=== PATIENT | female | born 1935 | race Hispanic/Latino ===

== ENCOUNTER 2018-08-19 12:44 | Inpatient (IN) | payer MEDICARE ==
[2018-08-19 13:38] LABS: VENOUS BLOOD GAS BASE EXCESS 6.9 mmol/L (0.0-2.0); VENOUS BLOOD GAS PO2 100 mm/Hg (30-55); VENOUS BLOOD PH 7.45 (7.32-7.43)
[2018-08-19] MEDS ORDERED: Phytonadione 5 MG in Sodium Chloride 0.9% 50 ML IV ONE ×2 (13:43→20:45)
[2018-08-19 13:51] LABS: BASO # 0.01 K/mm3 (0.0-2.0); EOS # 0.1 (0.0-0.7); EOS % 0.2 % (1.5-5.0); GRAN # 19.09 (1.4-6.5); GRAN % 90.3 % (50.0-68.0); HEMOGLOBIN 10.1 g/dL (12.0-16.0); LYMPH # 1.1 (1.2-3.4); LYMPH % 5.3 % (22.0-35.0); MEAN CELL VOLUME 93.7 fl (80.0-105.0); MEAN CORPUSCULAR HEMOGLOBIN 30.3 pg (25.0-35.0); MEAN CORPUSCULAR HGB CONC 32.4 g/dl (31.0-37.0); MEAN PLATELET VOLUME 9.6 fl (7.0-11.0); MONO # 0.9 (0.1-0.6); MONO % 4.2 % (1.0-6.0); PLATELET COUNT 587 10^3/uL (120.0-450.0); RBC 3.33 10^6/uL (3.5-6.1); RED CELL DISTRIBUTION WIDTH 13.3 % (11.5-14.5); WHITE BLOOD COUNT 21.2 10^3/uL (4.5-11.0)
[2018-08-19] MEDS ORDERED: Insulin Reg-MEDIUM-Coverage IV STA (13:55)
[2018-08-19 13:59] LABS: ALB/GLOB RATIO 0.8 (1.1-1.8); ALBUMIN 2.9 g/dL (3.0-4.8); TROPONIN I 0.02 ng/mL
[2018-08-19 14:03] LABS: PARTIAL THROMBOPLASTIN TIME 65.8 Seconds (25.1-36.5)
[2018-08-19 14:06] LABS: PROTHROMBIN TIME 127.7 SECONDS (9.4-12.5)
[2018-08-19 14:08] LABS: EOSINOPHIL 1 % (0.0-3.0); LYMPHOCYTE 3 % (22.0-35.0); MONOCYTE 6 % (1.0-6.0); MYELOCYTE 1 %; NEUTROPHIL 89 % (50.0-70.0)
[2018-08-19 14:09] LABS: PLATELET ESTIMATE HIGH (NORMAL)
[2018-08-19 14:12] LABS: INR 10.58
[2018-08-19] MEDS ORDERED: Sodium Chloride 0.9% 1,000 ML IV SCH (14:15)
[2018-08-19] MEDS ORDERED: Insulin Regular 1 UNITS/0.01 ML ML ONE (14:17)
--- NOTE | 2018-08-19 14:17 | ED PDOC ---
Arrival/HPI - General Chief Complaint: Abnormal Labs Historian: Parent - History of Present Illness Narrative History of Present Illness (Text): 08/19/18 14:06 83yo female with pmhx Diabetes, hypertension, hypothyroid, DVT referred to ED by Dr. Bishop for elevated INR. The daughter by the bedside states she wasn't able to check the INR at home secondary to faulty machine for few days and when [facility] checked it today it was 12.9. The daughter by the bedside also report that patient started having RUQ abdominal pain with associated nausea, vomiting, diarrhea and was seen by Dr. Bishop on Saturday where she was referred to abdominal US yesterday and was told she have gallstone. She report persistent diarrhea. Notes that her pain and vomiting is currently resolved. Denies fever, chills, cough, chest pain, SOB, melena, hematemesis, epistaxis, bruise, any other complaint. Past Medical History - Provider Review Nursing Documentation Reviewed: Yes - Infectious Disease Hx of Infectious Diseases: None - Tetanus Immunization Tetanus Immunization: Unknown - Cardiac Hx Cardiac Disorders: Yes Hx Hypertension: Yes - Pulmonary Hx Respiratory Disorders: No - Neurological Hx Neurological Disorder: No - HEENT Hx HEENT Disorder: No - Renal Hx Renal Disorder: No - Endocrine/Metabolic Hx Diabetes Mellitus Type 2: Yes Hx Hypothyroidism: Yes - Hematological/Oncological Hx Blood Disorders: No - Integumentary Hx Dermatological Disorder: No - Musculoskeletal/Rheumatological Hx Musculoskeletal Disorders: No - Gastrointestinal Hx Gastrointestinal Disorders: No - Genitourinary/Gynecological Hx Genitourinary Disorders: No - Psychiatric Hx Psychophysiologic Disorder: No Hx Substance Use: No - Surgical History Hx Orthopedic Surgery: Yes - Anesthesia Hx Anesthesia Reactions: No Hx Malignant Hyperthermia: No Family/Social History - Physician Review Nursing Documentation Reviewed: Yes Family/Social History: Unknown Family HX Smoking Status: Never Smoked Hx Alcohol Use: No Hx Substance Use: No Allergies/Home Meds Allergies/Adverse Reactions: Allergies acetaminophen [From Percocet] Allergy (Verified 08/19/18 16:58) DIZZINESS oxycodone [From Percocet] Allergy (Verified 08/19/18 16:58) DIZZINESS Penicillins Allergy (Verified 08/19/18 16:58) DIZZINESS Home Medications: Home Meds Medication Instructions Recorded Confirmed Calcium Carbonate/Vitamin D3 600 mg PO DAILY 11/20/18 11/20/18 [Calcium 600+D Softgel] Glipizide [Glipizide ER] 2.5 mg PO DAILY 08/19/18 08/19/18 Home Med 5 mg PO DAILY 08/19/18 08/19/18 RX: Levothyroxine [Synthroid] 100 mcg PO DAILY 08/19/18 08/19/18 RX: Warfarin [Coumadin] 2 mg PO 1800 08/19/18 08/19/18 Sodium Bicarbonate Tab 650 mg PO TID 08/19/18 08/19/18 Review of Systems - Physician Review All systems were reviewed & negative as marked: Yes - Review of Systems Constitutional: Other (Elevated INR) Eyes: Normal ENT: Normal Respiratory: Normal Cardiovascular: Normal Gastrointestinal: Diarrhea. absent: Abdominal Pain, Nausea, Vomiting Genitourinary Female: Normal Musculoskeletal: Normal Skin: Normal Neurological: Normal Endocrine: Normal Hemo/Lymphatic: Normal Psychiatric: Normal Physical Exam Vital Signs Reviewed: Yes Vital Signs Temp Pulse Resp BP Pulse Ox 08/19/18 12:58 97.9 F 84 18 150/72 94 L Temperature: Afebrile Blood Pressure: Normal Pulse: Regular Respiratory Rate: Normal Appearance: Positive for: Well-Appearing, Non-Toxic, Comfortable Pain Distress: None Mental Status: Positive for: Alert and Oriented X 3 - Systems Exam Head: Present: Atraumatic, Normocephalic Pupils: Present: PERRL Extroacular Muscles: Present: EOMI Conjunctiva: Present: Normal Mouth: Present: Moist Mucous Membranes Neck: Present: Normal Range of Motion Respiratory/Chest: Present: Clear to Auscultation, Good Air Exchange. No: Respiratory Distress, Accessory Muscle Use, Wheezes, Decreased Breath Sounds, Rales, Retracting, Rhonchi Cardiovascular: Present: Regular Rate and Rhythm, Normal S1, S2. No: Murmurs Abdomen: Present: Normal Bowel Sounds, Other (Soft). No: Tenderness, Distention, Peritoneal Signs, Rebound, Guarding, McBurney's Point Tender, Rovsing's Sign Present Back: Present: Normal Inspection Upper Extremity: Present: Normal Inspection. No: Cyanosis, Edema Lower Extremity: Present: Normal Inspection. No: Edema Neurological: Present: GCS=15, CN II-XII Intact, Speech Normal Skin: Present: Warm, Dry, Normal Color. No: Rashes Psychiatric: Present: Alert, Oriented x 3, Normal Insight, Normal Concentration Medical Decision Making ED Course and Treatment: 08/19/18 19:55 83yo female referred to ED for elevated INR. PT denied any bleeding from any source in ED. she was comfortable. Afebrile and hemodynamically stable. Labs EKG CXR Blood culture VBG Result was reviewed and pt had leukocytosis with a shift. Elevated INR was noted. Elevated BS was also noted Vit K 5mg was ordered Vanco and Zosyn was ordered Insulin ordered CXR NAD EKG NSR @ 78bpm. LAD; Prolonged QT. abdominal/Pelvic CT IMPRESSION: There is a large subcapsular fluid collection along the posterior inferior border of the liver. This measures 11.5 x 4.2 x 8.2 cm in size. This measures 20 Hounsfield units. The findings could represent a simple cyst, a biloma, or hepatic abscess. Clinical correlation is suggested. The gallbladder is distended and there is mild thickening of the gallbladder wall. There are several gallstones. Possible cholecystitis. PT was admitted for Coagulopathy and cholecystitis Case was DW Dr. Martins and she accepted pt to her service. - Lab Interpretations Lab Results: 08/19/18 13:20 08/19/18 13:20 Lab Results 08/19/18 13:20: Sodium 132, Chloride 94 L, Potassium 3.7, Carbon Dioxide 29, Anion Gap 13, BUN 17, Creatinine 1.1, Est GFR ( Amer) 58, Est GFR (Non-Af Amer) 48, Random Glucose 414 H* D, Calcium 9.0, Phosphorus 3.1, Magnesium 1.6 L , Total Bilirubin 0.5, AST 34, ALT 28, Alkaline Phosphatase 219 H, Troponin I 0.02, Total Protein 6.6, Albumin 2.9 L, Globulin 3.7, Albumin/Globulin Ratio 0.8 L 08/19/18 13:20: pO2 100 H, VBG pH 7.45 H, VBG pCO2 46.0, VBG HCO3 32.0 H, VBG Total CO2 33.4 H, VBG O2 Sat (Calc) 97.9 H, VBG Base Excess 6.9 H, VBG Potassium 3.6, Sodium 132.0, Chloride 95.0 L, Glucose 454 H*, Lactate 1.4, FiO2 21.0, Venous Blood Potassium 3.6 08/19/18 13:20: PT Pending, INR Pending, APTT 65.8 H 08/19/18 13:20: WBC 21.2 H, RBC 3.33 L, Hgb 10.1 L, Hct 31.2 L, MCV 93.7, MCH 30.3, MCHC 32.4, RDW 13.3, Plt Count 587 H, MPV 9.6, Gran % 90.3 H, Lymph % (Auto) 5.3 L, Tift % (Auto) 4.2, Eos % (Auto) 0.2 L, Baso % (Auto) 0.0, Gran # 19.09 H, Lymph # (Auto) 1.1 L, Tift # (Auto) 0.9 H, Eos # (Auto) 0.1, Baso # (Auto) 0.01, Neutrophils % (Manual) Pending, Lymphocytes % (Manual) Pending, Monocytes % (Manual) Pending - RAD Interpretation Radiology Orders: 08/19/18 13:24 CHEST PORTABLE [RAD] Stat 08/19/18 14:01 ABD & PELVIS IV CONTRAST ONLY [CT] Stat - Medication Orders Current Medication Orders: Phytonadione 5 mg/ Sodium (Chloride) 50.5 mls @ 100 mls/hr IV ONCE ONE Stop: 08/19/18 14:13 Sodium Chloride (Sodium Chloride 0.9%) 1,000 mls @ 100 mls/hr IV .Q10H RISSA Discontinued Medications Insulin Human Regular (Humulin R Med) 5 units IV ONCE STA; Protocol Stop: 08/19/18 13:56 Disposition/Present on Arrival - Present on Arrival Any Indicators Present on Arrival: No History of DVT/PE: Yes History of Uncontrolled Diabetes: No Urinary Catheter: No History of Decub. Ulcer: No History Surgical Site Infection Following: None - Disposition Have Diagnosis and Disposition been Completed?: Yes Diagnosis: Coagulopathy, Leukocytosis, Cholecystitis, Hepatic abscess, Pleural effusion, Hyperglycemia Disposition: HOSPITALIZED Disposition Time: 14:10 Patient Plan: Admission Patient Problems: Current Active Problems Problem Status Onset Cholecystitis Acute Coagulopathy Acute Hepatic abscess Acute Leukocytosis Acute Pleural effusion Acute Condition: FAIR
[2018-08-19] MEDS ORDERED: Iohexol 350 MG/100 ML VIAL ONE (14:30)
[2018-08-19] MEDS ORDERED: Vancomycin 1gm in NS 250ml 1 GM/250 ML BAG IVPB STA (15:27)
--- NOTE | 2018-08-19 15:27 | RAD ---
Date of service: 08/19/2018 HISTORY: Sepsis Patient COMPARISON: 07/15/2015 FINDINGS: LUNGS: No active pulmonary disease. PLEURA: No significant pleural effusion identified, no pneumothorax apparent. CARDIOVASCULAR: Mild aortic calcification Normal cardiac size. No pulmonary vascular congestion. OSSEOUS STRUCTURES: No significant abnormalities. VISUALIZED UPPER ABDOMEN: Normal. OTHER FINDINGS: None. IMPRESSION: No active disease.
[2018-08-19] MEDS ORDERED: metroNIDAZOLE IV 500 mg/100 ml 500 MG/100 ML BAG IVPB STA (15:29)
--- NOTE | 2018-08-19 16:11 | CT ---
Date of service: 08/19/2018 PROCEDURE: CT Abdomen and Pelvis with contrast HISTORY: RUQ pain COMPARISON: None. TECHNIQUE: Contrast dose: 100 cc of Omni 350 Radiation dose: Total exam DLP = 378.98 mGy-cm. This CT exam was performed using one or more of the following dose reduction techniques: Automated exposure control, adjustment of the mA and/or kV according to patient size, and/or use of iterative reconstruction technique. FINDINGS: LOWER THORAX: Small right pleural effusion LIVER: There is a large subcapsular fluid collection along the posterior inferior border of the liver. This measures 11.5 x 4.2 x 8.2 cm in size. This measures 20 Hounsfield units. The findings could represent a simple cyst, a biloma, or hepatic abscess. Clinical correlation is suggested. A separate 3 cm subcapsular lesion is also seen near the gallbladder fossa GALLBLADDER AND BILE DUCTS: The gallbladder is distended and there is mild thickening of the gallbladder wall. There are several gallstones. Possible cholecystitis. PANCREAS: Unremarkable. No gross lesion or ductal dilatation. SPLEEN: Unremarkable. ADRENALS: Unremarkable. No mass. KIDNEYS AND URETERS: There atrophy of the right kidney with multiple cysts. Simple cysts are also seen in the left kidney. VASCULATURE: Unremarkable. No aortic aneurysm. Aortic calcifications are seen. A caval filter is in place. BOWEL: Unremarkable. No obstruction. No gross mural thickening. APPENDIX: Normal appendix. PERITONEUM: Unremarkable. No free fluid. No free air. LYMPH NODES: Unremarkable. No enlarged lymph nodes. BLADDER: Unremarkable. REPRODUCTIVE: Unremarkable. BONES: No acute fracture. OTHER FINDINGS: None. IMPRESSION: There is a large subcapsular fluid collection along the posterior inferior border of the liver. This measures 11.5 x 4.2 x 8.2 cm in size. This measures 20 Hounsfield units. The findings could represent a simple cyst, a biloma, or hepatic abscess. Clinical correlation is suggested. The gallbladder is distended and there is mild thickening of the gallbladder wall. There are several gallstones. Possible cholecystitis.
[2018-08-19] MEDS ORDERED: Pneumococcal 23-Valent Vaccine IM ONE (18:33)
[2018-08-19] MEDS ORDERED: Influenza Vaccine 60 mcg/0.5 mL SYR (4YR UP) IM ONE (18:33)
[2018-08-19 18:34] VITALS: BMI 24.4
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
[2018-08-19] MEDS ORDERED: Phytonadione 10 mg/ml Inj (Adult) SC ONE (21:27)
[2018-08-19] MEDS ORDERED: metroNIDAZOLE IV 500 mg/100 ml 500 MG/100 ML BAG IVPB SCH (22:00)
[2018-08-19] MEDS ORDERED: Aztreonam 1 Gm in NS 100mL 100 ML IVPB SCH (22:00)
--- NOTE | 2018-08-19 22:17 | HP ---
DATE OF EXAM: 08/19/2018 HISTORY OF PRESENT ILLNESS: The patient is an 83-year-old know to me from previous admission, was seen by Dr. Bishop yesterday and she was complaining of abdominal pain. She has been having intermittent diarrhea. She has routine blood work done. She was found to have INR of 12 in her office, so she was advised to come to emergency room because of supratherapeutic PT/INR. Since the patient was complaining of abdominal pain, she underwent CT scan of the abdomen and pelvis. She was also found to have leukocytosis, so she is being admitted for further workup. The patient denies any nausea or vomiting. Does have right upper quadrant discomfort. Does have history of diarrhea. No history of fever or chills. No hemoptysis. No hematemesis. No rectal bleeding. No history of bruising or epistaxis. PAST MEDICAL HISTORY: Significant for: 1. Hypertension. 2. Vrk-cxznnwo-vozapeyiz diabetes. 3. Hypothyroidism. 4. History of chronic AFib. 5. History of osteoporosis. 6. History of right hip fracture back in 2014. She had open reduction and internal fixation done by Dr. Beach. ALLERGIES: SHE IS ALLERGIC TO PENICILLIN, ACETAMINOPHEN AND OXYCODONE. SOCIAL HISTORY: She lives with her daughter. Denies smoking, drinking, or alcohol use. MEDICATIONS AT HOME: She is on: 1. Sodium bicarbonate. 2. She is on glipizide 2.5 daily. 3. She is on calcium carbonate. 4. She is on amlodipine 5 mg daily. 5. Coumadin 2 mg daily. 6. Prandin 2 mg three times a day. 7. Metoprolol 100 mg twice a day. 8. Levothyroxine 100 mcg daily. REVIEW OF SYSTEMS: Denies any chest pain. No headache. No nausea or vomiting. PHYSICAL EXAMINATION: GENERAL: She is awake, alert, oriented, and communicative. VITAL SIGNS: She is afebrile, pulse 98, respirations 18, and blood pressure 136/77. LUNGS: Bilateral fair airflow. No rhonchi or crackle. HEART: S1 and S2 audible. ABDOMEN: Soft. She has positive right upper quadrant discomfort. NEUROLOGIC: She is awake, alert, oriented, and communicative. LABORATORY DATA: WBC is 21.2, hemoglobin 10.1, hematocrit 31.2, and platelet of 587,000. PT 127 and INR 10.58. PTT 65.8. Chemistry: Sodium 132, potassium 3.7, chloride 94, CO2 of 29, BUN 17, creatinine 1.1, and blood sugar of 266. LFTs are within normal limits. Magnesium is 1.6. CT scan of the abdomen and pelvis done that showed thickening of the gallbladder with gallstones and there is a large subcapsular fluid collection along the inferior wall of the liver that measures 11.5 x 4.2 x 8.2. ASSESSMENT: 1. Leukocytosis, probably cholecystitis. 2. Acute cholecystitis. 3. Supratherapeutic INR. 4. Chronic atrial fibrillation. 5. Hypertension. 6. Xac-lxpakmt-petlvhaba diabetes. PLAN: The patient will be admitted on telemetry. We will keep her . We will give her IV fluids. Monitor her blood sugar. She has been started on Azactam since she is allergic to PENICILLIN 1 g every 8 hours and she is on metronidazole. We will continue on IV fluid. We will order for Protonix. Surgical consult by Dr. Wiggins, GI consult by Dr. Redding and ID consult by Dr. Hassan has been requested. Cindy Martins MD
[2018-08-19] MEDS: Meropenem IV 1 gm in NS 1 GM/50 ML BAG IVPB SCH (22:22)
[2018-08-19] MEDS: Sodium Chloride 0.9% 1,000 ML IV SCH (22:34)
[2018-08-19] MEDS: Insulin Lispro (humaLOG) MEDIUM Coverage SC SCH (22:34)
[2018-08-20] MEDS: metroNIDAZOLE IV 500 mg/100 ml 500 MG/100 ML BAG IVPB SCH ×4 (00:23→21:53)
[2018-08-20 00:37] LABS: URINE BILIRUBIN NEGATIVE (NEGATIVE); URINE BLOOD SMALL (NEGATIVE); URINE GLUCOSE (UA) 250 mg/dL (NEGATIVE); URINE LEUKOCYTE ESTERASE NEGATIVE Leu/uL (NEGATIVE); URINE PROTEIN 100 mg/dL (<30 mg/dL); URINE UROBILINOGEN 0.2 E.U./dL (<1 E.U./dL)
[2018-08-20 00:39] LABS: URINE APPEARANCE CLOUDY (CLEAR); URINE COLOR YELLOW (YELLOW)
[2018-08-20 01:25] LABS: URINE BACTERIA LARGE (NEG)
[2018-08-20 01:29] LABS: BASO # 0.01 K/mm3 (0.0-2.0); EOS # 0.1 (0.0-0.7); EOS % 0.3 % (1.5-5.0); GRAN # 19.86 (1.4-6.5); GRAN % 89.1 % (50.0-68.0); HEMOGLOBIN 9.6 g/dL (12.0-16.0); LYMPH # 1.3 (1.2-3.4); LYMPH % 5.8 % (22.0-35.0); MEAN CELL VOLUME 94.2 fl (80.0-105.0); MEAN CORPUSCULAR HGB CONC 32.9 g/dl (31.0-37.0); MEAN PLATELET VOLUME 9.3 fl (7.0-11.0); MONO # 1.1 (0.1-0.6); MONO % 4.8 % (1.0-6.0); RBC 3.1 10^6/uL (3.5-6.1); RED CELL DISTRIBUTION WIDTH 13.4 % (11.5-14.5); WHITE BLOOD COUNT 22.3 10^3/uL (4.5-11.0)
[2018-08-20 01:32] LABS: INR 1.61; PARTIAL THROMBOPLASTIN TIME 42.3 Seconds (25.1-36.5); PROTHROMBIN TIME 18.5 SECONDS (9.4-12.5)
[2018-08-20 01:46] LABS: ALB/GLOB RATIO 0.8 (1.1-1.8); CALCIUM 8.7 mg/dL (8.4-10.5)
[2018-08-20 06:14] LABS: BASO # 0.02 K/mm3 (0.0-2.0); BASO % 0.1 % (0.0-3.0); EOS # 0.1 (0.0-0.7); EOS % 0.4 % (1.5-5.0); GRAN # 19.27 (1.4-6.5); GRAN % 86.6 % (50.0-68.0); HEMOGLOBIN 9.9 g/dL (12.0-16.0); LYMPH # 1.8 (1.2-3.4); MEAN CELL VOLUME 94.6 fl (80.0-105.0); MEAN CORPUSCULAR HEMOGLOBIN 31.2 pg (25.0-35.0); MEAN PLATELET VOLUME 9.5 fl (7.0-11.0); MONO # 1.1 (0.1-0.6); MONO % 4.9 % (1.0-6.0); RBC 3.17 10^6/uL (3.5-6.1); RED CELL DISTRIBUTION WIDTH 13.5 % (11.5-14.5); WHITE BLOOD COUNT 22.2 10^3/uL (4.5-11.0)
[2018-08-20 06:29] LABS: INR 1.44; PARTIAL THROMBOPLASTIN TIME 41.4 Seconds (25.1-36.5); PROTHROMBIN TIME 16.7 SECONDS (9.4-12.5)
[2018-08-20] MEDS: Sodium Chloride 0.9% 1,000 ML IV SCH ×2 (06:32→19:50)
[2018-08-20 06:39] LABS: ALB/GLOB RATIO 0.8 (1.1-1.8); ALBUMIN 2.9 g/dL (3.0-4.8); CALCIUM 8.7 mg/dL (8.4-10.5)
[2018-08-20 06:47] LABS: FREE T4 1.48 ng/dL (0.78-2.19)
[2018-08-20] MEDS ORDERED: Phytonadione 5 MG in Sodium Chloride 0.9% 50 ML IV ONE (07:34)
--- NOTE | 2018-08-20 08:02 | CARD ---
APPROVED REPORT Date of service: 08/19/2018 EKG Measurement Heart [id number] <Conclusion> Normal sinus rhythm Left axis deviation NSSTW changes Prolonged QT
--- NOTE | 2018-08-20 08:19 | CP.PCM.CON ---
History of Present Illness - History of Present Illness History of Present Illness: Awake, alert, no distress, denies chest pain Reason for consult: Cardiac evaluation and risk stratification for possible surgery Brief history of present illness: An 83 year old female who came in to the ER due to elevated INR. Patient is on Coumadin for DVT. INR was 12.9 by [facility] thus sent to the ER by PMD. She also complaint of RUQ pain and nausea and vomiting and diarrhea. She had an outpatient US of the abdomen and showed gallstone. History of Diabetes, hypertension, hypothyroid, DVT Seen and examined by me and Dr. Shah Review of Systems - Review of Systems All systems: reviewed and no additional remarkable complaints except Review of Systems: as per HPI Past Patient History - Infectious Disease Hx of Infectious Diseases: None - Tetanus Immunizations Tetanus Immunization: Unknown - Past Social History Smoking Status: Never Smoked - CARDIAC Hx Cardiac Disorders: Yes Hx Hypertension: Yes - PULMONARY Hx Respiratory Disorders: No - NEUROLOGICAL Hx Neurological Disorder: No - HEENT Hx HEENT Problems: No - RENAL Hx Chronic Kidney Disease: No - ENDOCRINE/METABOLIC Hx Diabetes Mellitus Type 2: Yes Hx Hypothyroidism: Yes - HEMATOLOGICAL/ONCOLOGICAL Hx Blood Disorders: No - INTEGUMENTARY Hx Dermatological Problems: No - MUSCULOSKELETAL/RHEUMATOLOGICAL Hx Musculoskeletal Disorders: No - GASTROINTESTINAL Hx Gastrointestinal Disorders: No - GENITOURINARY/GYNECOLOGICAL Hx Genitourinary Disorders: No - PSYCHIATRIC Hx Psychophysiologic Disorder: No Hx Substance Use: No - SURGICAL HISTORY Hx Orthopedic Surgery: Yes - ANESTHESIA Hx Anesthesia Reactions: No Hx Malignant Hyperthermia: No Meds Allergies/Adverse Reactions: Allergies Allergy/AdvReac Type Severity Reaction Status Date / Time acetaminophen [From Percocet] Allergy DIZZINESS Verified 08/19/18 16:58 oxycodone [From Percocet] Allergy DIZZINESS Verified 08/19/18 16:58 Penicillins Allergy DIZZINESS Verified 08/19/18 16:58 - Medications Medications: Current Medications Meropenem (Merrem Iv 1 Gm Premix) 1 gm in 50 mls @ 100 mls/hr IVPB Q12 RISSA; Protocol Stop: 08/27/18 22:01 Last Admin: 08/19/18 22:22 Dose: 100 mls/hr Metronidazole (Flagyl) 500 mg in 100 mls @ 100 mls/hr IVPB Q8 RISSA; Protocol Last Admin: 08/20/18 06:23 Dose: 100 mls/hr Sodium Chloride (Sodium Chloride 0.9%) 1,000 mls @ 125 mls/hr IV .Q8H [facility] Last Admin: 08/20/18 06:32 Dose: 125 mls/hr Insulin Human Lispro (Humalog Med) 0 units SC [facility]; Protocol Last Admin: 08/19/18 22:34 Dose: Not Given Levothyroxine Sodium (Synthroid) 100 mcg PO ACB [facility] Metoprolol Tartrate (Lopressor) 100 mg PO BID [facility] Ondansetron HCl (Zofran Inj) 4 mg IVP Q6H PRN PRN Reason: Nausea/Vomiting Pantoprazole Sodium (Protonix Inj) 40 mg IVP DAILY [facility] Physical Exam - Constitutional Appears: Non-toxic, No Acute Distress - Head Exam Head Exam: NORMAL INSPECTION, NORMOCEPHALIC - Eye Exam Eye Exam: Normal appearance Pupil Exam: NORMAL ACCOMODATION - ENT Exam ENT Exam: Mucous Membranes Dry - Respiratory Exam Respiratory Exam: Clear to Auscultation Bilateral, NORMAL BREATHING PATTERN - Cardiovascular Exam Cardiovascular Exam: REGULAR RHYTHM, +S1, +S2 Additional comments: denies chest pain or shortness of breath - GI/Abdominal Exam GI & Abdominal Exam: Normal Bowel Sounds, Soft Additional comments: RUQ tenderness, denies pain, denies nausea and vomiting - Extremities Exam Extremities exam: Positive for: full ROM, normal capillary refill - Neurological Exam Neurological exam: Alert, Oriented x3 - Psychiatric Exam Psychiatric exam: Normal Affect, Normal Mood - Skin Skin Exam: Dry, Normal Color, Warm Results - Vital Signs Recent Vital Signs: Last Vital Signs Temp 98 F 08/20/18 06:00 Pulse 81 08/20/18 06:00 Resp 20 08/20/18 06:00 BP 162/86 H 08/20/18 06:00 Pulse Ox 95 08/20/18 06:00 - Labs Result Diagrams: 08/20/18 06:00 08/20/18 06:00 Labs: Laboratory Results - last 24 hr 08/19/18 08/19/18 08/19/18 13:20 13:20 13:20 WBC 21.2 H RBC 3.33 L Hgb 10.1 L Hct 31.2 L MCV 93.7 MCH 30.3 MCHC 32.4 RDW 13.3 Plt Count 587 H MPV 9.6 Gran % 90.3 H Lymph % (Auto) 5.3 L Evans % (Auto) 4.2 Eos % (Auto) 0.2 L Baso % (Auto) 0.0 Gran # 19.09 H Lymph # (Auto) 1.1 L Evans # (Auto) 0.9 H Eos # (Auto) 0.1 Baso # (Auto) 0.01 Neutrophils % (Manual) 89 H Lymphocytes % (Manual) 3 L Monocytes % (Manual) 6 Eosinophils % (Manual) 1 Myelocytes % 1 Platelet Evaluation High PT 127.7 H INR 10.58 H* APTT 65.8 H pO2 100 H VBG pH 7.45 H VBG pCO2 46.0 VBG HCO3 32.0 H VBG Total CO2 33.4 H VBG O2 Sat (Calc) 97.9 H VBG Base Excess 6.9 H VBG Potassium 3.6 Sodium 132.0 Chloride 95.0 L Glucose 454 H* Lactate 1.4 FiO2 21.0 Potassium Carbon Dioxide Anion Gap BUN Creatinine Est GFR ( Amer) Est GFR (Non-Af Amer) POC Glucose (mg/dL) Random Glucose Calcium Phosphorus Magnesium Total Bilirubin AST ALT Alkaline Phosphatase Troponin I Total Protein Albumin Globulin Albumin/Globulin Ratio Free T4 TSH 3rd Generation Venous Blood Potassium 3.6 Urine Color Urine Appearance Urine pH Ur Specific [place] Urine Protein Urine Glucose (UA) Urine Ketones Urine Blood Urine Nitrate Urine Bilirubin Urine Urobilinogen Ur Leukocyte Esterase Urine RBC Urine WBC Ur Epithelial Cells Urine Bacteria Urine Other Blood Type Antibody Screen BBK History Checked 08/19/18 08/19/18 08/19/18 13:20 16:21 19:49 WBC RBC Hgb Hct MCV MCH MCHC RDW Plt Count MPV Gran % Lymph % (Auto) Evans % (Auto) Eos % (Auto) Baso % (Auto) Gran # Lymph # (Auto) Evans # (Auto) Eos # (Auto) Baso # (Auto) Neutrophils % (Manual) Lymphocytes % (Manual) Monocytes % (Manual) Eosinophils % (Manual) Myelocytes % Platelet Evaluation PT INR APTT pO2 VBG pH VBG pCO2 VBG HCO3 VBG Total CO2 VBG O2 Sat (Calc) VBG Base Excess VBG Potassium Sodium 132 Chloride 94 L Glucose Lactate FiO2 Potassium 3.7 Carbon Dioxide 29 Anion Gap 13 BUN 17 Creatinine 1.1 Est GFR ( Amer) 58 Est GFR (Non-Af Amer) 48 POC Glucose (mg/dL) 266 H Random Glucose 414 H* D Calcium 9.0 Phosphorus 3.1 Magnesium 1.6 L Total Bilirubin 0.5 AST 34 ALT 28 Alkaline Phosphatase 219 H Troponin I 0.02 Total Protein 6.6 Albumin 2.9 L Globulin 3.7 Albumin/Globulin Ratio 0.8 L Free T4 TSH 3rd Generation Venous Blood Potassium Urine Color Urine Appearance Urine pH Ur Specific [place] Urine Protein Urine Glucose (UA) Urine Ketones Urine Blood Urine Nitrate Urine Bilirubin Urine Urobilinogen Ur Leukocyte Esterase Urine RBC Urine WBC Ur Epithelial Cells Urine Bacteria Urine Other Blood Type O POSITIVE Antibody Screen Negative BBK History Checked Patient has bt 08/19/18 08/19/18 08/20/18 21:22 22:31 00:20 WBC RBC Hgb Hct MCV MCH MCHC RDW Plt Count MPV Gran % Lymph % (Auto) Evans % (Auto) Eos % (Auto) Baso % (Auto) Gran # Lymph # (Auto) Evans # (Auto) Eos # (Auto) Baso # (Auto) Neutrophils % (Manual) Lymphocytes % (Manual) Monocytes % (Manual) Eosinophils % (Manual) Myelocytes % Platelet Evaluation PT INR APTT pO2 VBG pH VBG pCO2 VBG HCO3 VBG Total CO2 VBG O2 Sat (Calc) VBG Base Excess VBG Potassium Sodium Chloride Glucose Lactate FiO2 Potassium Carbon Dioxide Anion Gap BUN Creatinine Est GFR ( Amer) Est GFR (Non-Af Amer) POC Glucose (mg/dL) 208 H 208 H Random Glucose Calcium Phosphorus Magnesium Total Bilirubin AST ALT Alkaline Phosphatase Troponin I Total Protein Albumin Globulin Albumin/Globulin Ratio Free T4 TSH 3rd Generation Venous Blood Potassium Urine Color Yellow Urine Appearance Cloudy Urine pH 6.0 Ur Specific [place] 1.010 Urine Protein 100 H Urine Glucose (UA) 250 H Urine Ketones 15 H Urine Blood Small H Urine Nitrate Positive H Urine Bilirubin Negative Urine Urobilinogen 0.2 Ur Leukocyte Esterase Negative Urine RBC 2 - 5 Urine WBC 10 - 15 Ur Epithelial Cells 6 - 8 Urine Bacteria Large Urine Other Mucus Blood Type Antibody Screen BBK History Checked 08/20/18 08/20/18 08/20/18 01:10 01:10 01:10 WBC 22.3 H RBC 3.10 L Hgb 9.6 L Hct 29.2 L MCV 94.2 MCH 31.0 MCHC 32.9 RDW 13.4 Plt Count 566 H MPV 9.3 Gran % 89.1 H Lymph % (Auto) 5.8 L Evans % (Auto) 4.8 Eos % (Auto) 0.3 L Baso % (Auto) 0.0 Gran # 19.86 H Lymph # (Auto) 1.3 Evans # (Auto) 1.1 H Eos # (Auto) 0.1 Baso # (Auto) 0.01 Neutrophils % (Manual) Lymphocytes % (Manual) Monocytes % (Manual) Eosinophils % (Manual) Myelocytes % Platelet Evaluation PT 18.5 H INR 1.61 APTT 42.3 H pO2 VBG pH VBG pCO2 VBG HCO3 VBG Total CO2 VBG O2 Sat (Calc) VBG Base Excess VBG Potassium Sodium 135 Chloride 99 Glucose Lactate FiO2 Potassium 3.3 L Carbon Dioxide 26 Anion Gap 14 BUN 14 Creatinine 1.1 Est GFR ( Amer) 58 Est GFR (Non-Af Amer) 48 POC Glucose (mg/dL) Random Glucose 193 H Calcium 8.7 Phosphorus 3.2 Magnesium 1.6 L Total Bilirubin 0.6 AST 26 ALT 30 Alkaline Phosphatase 192 H Troponin I Total Protein 6.8 Albumin 3.0 Globulin 3.7 Albumin/Globulin Ratio 0.8 L Free T4 TSH 3rd Generation Venous Blood Potassium Urine Color Urine Appearance Urine pH Ur Specific [place] Urine Protein Urine Glucose (UA) Urine Ketones Urine Blood Urine Nitrate Urine Bilirubin Urine Urobilinogen Ur Leukocyte Esterase Urine RBC Urine WBC Ur Epithelial Cells Urine Bacteria Urine Other Blood Type Antibody Screen BBK History Checked 08/20/18 08/20/18 08/20/18 01:59 06:00 06:00 WBC 22.2 H RBC 3.17 L Hgb 9.9 L Hct 30.0 L MCV 94.6 MCH 31.2 MCHC 33.0 RDW 13.5 Plt Count 587 H MPV 9.5 Gran % 86.6 H Lymph % (Auto) 8.0 L Evans % (Auto) 4.9 Eos % (Auto) 0.4 L Baso % (Auto) 0.1 Gran # 19.27 H Lymph # (Auto) 1.8 Evans # (Auto) 1.1 H Eos # (Auto) 0.1 Baso # (Auto) 0.02 Neutrophils % (Manual) Lymphocytes % (Manual) Monocytes % (Manual) Eosinophils % (Manual) Myelocytes % Platelet Evaluation PT INR APTT pO2 VBG pH VBG pCO2 VBG HCO3 VBG Total CO2 VBG O2 Sat (Calc) VBG Base Excess VBG Potassium Sodium 135 Chloride 102 Glucose Lactate FiO2 Potassium 4.7 Carbon Dioxide 24 Anion Gap 13 BUN 13 Creatinine 1.1 Est GFR ( Amer) 58 Est GFR (Non-Af Amer) 48 POC Glucose (mg/dL) 175 H Random Glucose 148 H Calcium 8.7 Phosphorus Magnesium Total Bilirubin 0.6 AST 28 ALT 18 Alkaline Phosphatase 190 H Troponin I Total Protein 6.6 Albumin 2.9 L Globulin 3.7 Albumin/Globulin Ratio 0.8 L Free T4 TSH 3rd Generation Venous Blood Potassium Urine Color Urine Appearance Urine pH Ur Specific [place] Urine Protein Urine Glucose (UA) Urine Ketones Urine Blood Urine Nitrate Urine Bilirubin Urine Urobilinogen Ur Leukocyte Esterase Urine RBC Urine WBC Ur Epithelial Cells Urine Bacteria Urine Other Blood Type Antibody Screen BBK History Checked 08/20/18 08/20/18 08/20/18 06:00 06:00 07:16 WBC RBC Hgb Hct MCV MCH MCHC RDW Plt Count MPV Gran % Lymph % (Auto) Evans % (Auto) Eos % (Auto) Baso % (Auto) Gran # Lymph # (Auto) Evans # (Auto) Eos # (Auto) Baso # (Auto) Neutrophils % (Manual) Lymphocytes % (Manual) Monocytes % (Manual) Eosinophils % (Manual) Myelocytes % Platelet Evaluation PT 16.7 H INR 1.44 APTT 41.4 H pO2 VBG pH VBG pCO2 VBG HCO3 VBG Total CO2 VBG O2 Sat (Calc) VBG Base Excess VBG Potassium Sodium Chloride Glucose Lactate FiO2 Potassium Carbon Dioxide Anion Gap BUN Creatinine Est GFR ( Amer) Est GFR (Non-Af Amer) POC Glucose (mg/dL) 149 H Random Glucose Calcium Phosphorus Magnesium Total Bilirubin AST ALT Alkaline Phosphatase Troponin I Total Protein Albumin Globulin Albumin/Globulin Ratio Free T4 1.48 TSH 3rd Generation 3.45 Venous Blood Potassium Urine Color Urine Appearance Urine pH Ur Specific [place] Urine Protein Urine Glucose (UA) Urine Ketones Urine Blood Urine Nitrate Urine Bilirubin Urine Urobilinogen Ur Leukocyte Esterase Urine RBC Urine WBC Ur Epithelial Cells Urine Bacteria Urine Other Blood Type Antibody Screen BBK History Checked Assessment & Plan - Assessment and Plan (Free Text) Assessment: An 83 year old female who came in to the ER due to elevated INR. Patient is on Coumadin for DVT. INR was 12.9 by [facility] thus sent to the ER by PMD. She also complaint of RUQ pain and nausea and vomiting and diarrhea. She had an outpatient US of the abdomen and showed gallstone. History of Diabetes, hypertension, hypothyroid, DVT. She was given FFP and vitamin K for elevated INR. Repeat INR now is 1.44. Denies chest pain or shortness of breath. Troponin normal. EKG normal sinus rhythm, no ischemia, no ST changes.Chest X ray showed no pulmonary congestion. Last Echo done 07/16/15 showed Normal ventricle, LVEF 55-60%,mild aortic regurgitation, aortic sclerosis vs. mild As,trace mitral regurgitation, mild tricuspid regurgitation. RVSP 42 mmHg. Patient is cleared for surgery with moderate risk. No absolute contraindication. No evidence of myocardial infarction or congestive heart failure. Plan: Denies chest pain or shortness of breath Cleared for surgery Moderate risk considering co-morbidities Heart rate controlled Blood pressure controlled On Synthroid 100 mcg daily, Lopressor 100 mg BID Continue antibiotics as ordered Continue current treatment Continue current medications chart reviewed Will follow up Plan and treatment discussed with Dr. Shah Thank you Dr. Martins and Dr. Hopkins for the opportunity of taking care of Ms. Aurea Piña - Date & Time Date: 08/20/18 Time: 06:35
[2018-08-20] MEDS: Levothyroxine 100 MCG TAB PO SCH ×2 (08:31→08:58)
--- NOTE | 2018-08-20 08:47 | CP.PCM.PCO ---
Physician Communication Note - Physician Communication Note Physician Communication Note: HIDA Pending-LFT NL?/Temporizing surgery momentarily
[2018-08-20] MEDS: Insulin Lispro (humaLOG) MEDIUM Coverage SC SCH ×4 (08:57→21:46)
--- NOTE | 2018-08-20 09:22 | CON ---
DATE: 08/20/2018 CHIEF COMPLAINT: Abdominal pain times one day. HISTORY OF PRESENT ILLNESS: This is an 83-year-old female with a history of diabetes mellitus, hypertension, hypothyroidism, DVT, who was admitted with chief complaint of abnormal labs at home. The patient was found to have an elevated INR. However, in the emergency room, the patient also complaining of abdominal pain associated with nausea, vomiting and diarrhea, was seen by her doctor, Dr. Bishop, and she was told that she had an ultrasound and she had gallstones, continues to have diarrhea and vomiting, but she denies any fevers and any chills. She is denying any cough, shortness of breath, chest pain, melena, and no dysuria or frequency. REVIEW OF SYSTEMS: Fourteen-point review of systems is performed. PAST MEDICAL HISTORY: Significant for hypothyroidism, DVT, hypertension, diabetes mellitus. PAST SURGICAL HISTORY: Significant for orthopedic surgery. ALLERGIES: THE PATIENT IS ALLERGIC TO PENICILLIN, THE TYPE OF ALLERGY IS NOT CLEAR. SHE IS ALSO ALLERGIC TO OXYCODONE AND ACETAMINOPHEN, AND THE TYPE OF ALLERGY IS ALSO CLEAR. She received meropenem last night by me and she has tolerated well. SOCIAL HISTORY: She is not a smoker. MEDICATIONS AT HOME: Reviewed and include glipizide, calcium, amlodipine, Coumadin, Prandin, metoprolol and levothyroxine. PHYSICAL EXAMINATION: GENERAL: She is in bed, in no acute distress. She is answering questions appropriately. VITAL SIGNS: Temperature of 98. Heart rate of 93, the highest heart rate was 98. Respiratory rate of 18 and highest respiratory rate was 20. Blood pressure of 153/80, lowest blood pressure was 136/77. She is saturating at 95%, it was down to 94% on room air. HEENT: Unremarkable. NECK: Supple. LUNGS: Have decreased breath sounds. HEART: Normal S1, S2. ABDOMEN: Soft and nontender. There is right upper quadrant tenderness but no rebound or guarding, no masses. LABORATORY EXAMINATION: Reveals a white count of 22,000, hemoglobin of 9, platelets of 587, with 86% granulocytosis and coagulation is noted. The patient's INR was 10, repeat one today is 1.6. Blood gases are reviewed. Chemistries reveal the patient's random glucose of 193, alk phos is elevated at 192. Urinalysis is 10-15 wbc's, large bacteria. The patient had a CAT scan of the abdomen and pelvis which revealed a small right pleural effusion and gallbladder is distended, mild thickening of the gallbladder wall, there are several gallstones, possible cholecystitis. The liver has a large subcapsular fluid collection in the posterior border of the liver, measuring 11 x 8 cm x 4 cm, possibility of a simple cyst, biloma or hepatic abscess. surgical consultation is reviewed. It is written that they are concerned about Entamoeba histolytica and Flagyl was started by surgical team. Dr. Martins's history and physical examination is reviewed. ASSESSMENT AND PLAN: This is an 83-year-old female with diabetes, hypertension, hypothyroidism, DVT, admitted with right upper quadrant pain, nausea, vomiting, diarrhea, found to have a heart rate of 98 and white count of 22,000, 21,000, and THE PATIENT WAS ALLERGIC TO PENICILLIN. 1. Sepsis with acute cholecystitis with a questionable collection on the liver, complication of gallbladder disease versus a hematoma from an INR of 10. I doubt Entamoeba histolytica as the patient does not have any eosinophilia and she has not traveled outside the [place]. We will treat the patient with meropenem. We will continue the Flagyl for now. Pending pancultures, blood, urine and sputum, the patient scheduled for a HIDA scan and we will make further recommendations upon availability of initial culture results. We will follow closely with you. Shaun Hassan MD
--- NOTE | 2018-08-20 09:46 | CP.PCM.PN ---
Subjective - Date & Time of Evaluation Date of Evaluation: 08/20/18 Time of Evaluation: 10:33 - Subjective Subjective: PGY-[address] Hopkins Patient seen and examined at bedside. No acute events overnight per nursing. Patient kept NPO except ice chips. Will continue to monitor. Patient denies chest pain, headache, fevers, chills. Objective - Vital Signs/Intake and Output Vital Signs (last 24 hours): Temp Pulse Resp BP Pulse Ox 98 F 81 20 162/86 H 95 08/20/18 06:00 08/20/18 06:00 08/20/18 06:00 08/20/18 06:00 08/20/18 06:00 Intake and Output: 08/20/18 08/20/18 06:59 18:59 Intake Total 1625 Output Total 450 Balance -450 1625 - Medications Medications: Current Medications Meropenem (Merrem Iv 1 Gm Premix) 1 gm in 50 mls @ 100 mls/hr IVPB Q12 RISSA; Pr otocol Stop: 08/27/18 22:01 Last Admin: 08/19/18 22:22 Dose: 100 mls/hr Metronidazole (Flagyl) 500 mg in 100 mls @ 100 mls/hr IVPB Q8 RISSA; Protocol Last Admin: 08/20/18 06:23 Dose: 100 mls/hr Sodium Chloride (Sodium Chloride 0.9%) 1,000 mls @ 125 mls/hr IV .Q8H RIS[facility] Last Admin: 08/20/18 06:32 Dose: 125 mls/hr Insulin Human Lispro (Humalog Med) 0 units SC ACHS RISSA; Protocol Last Admin: 08/20/18 08:57 Dose: Not Given Levothyroxine Sodium (Synthroid) 100 mcg PO ACB RISSA Last Admin: 08/20/18 08:58 Dose: Not Given Metoprolol Tartrate (Lopressor) 100 mg PO BID RISSA Ondansetron HCl (Zofran Inj) 4 mg IVP Q6H PRN PRN Reason: Nausea/Vomiting Pantoprazole Sodium (Protonix Inj) 40 mg IVP DAILY RISSA - Labs Labs: 08/20/18 06:00 08/20/18 06:00 PT 16.7 SECONDS (9.4-12.5) H 08/20/18 06:00 INR 1.44 08/20/18 06:00 APTT 41.4 Seconds (25.1-36.5) H 08/20/18 06:00 - Constitutional Appears: Non-toxic, No Acute Distress - Head Exam Head Exam: ATRAUMATIC, NORMOCEPHALIC - Eye Exam Eye Exam: EOMI, Normal appearance - ENT Exam ENT Exam: Mucous Membranes Moist - Respiratory Exam Respiratory Exam: Clear to Ausculation Bilateral. absent: Rhonchi, Wheezes - Cardiovascular Exam Cardiovascular Exam: RRR, +S1, +S2 - GI/Abdominal Exam GI & Abdominal Exam: Soft, Normal Bowel Sounds. absent: Tenderness - Extremities Exam Extremities Exam: absent: Pedal Edema, Tenderness - Neurological Exam Neurological Exam: Alert, Awake, Oriented x3 - Psychiatric Exam Psychiatric exam: Normal Affect, Normal Mood - Skin Skin Exam: Dry, Intact, Warm Assessment and Plan - Assessment and Plan (Free Text) Assessment: 83 year old female with RUQ pain, possible cholecystits on CT vs due to multiple cystic liver lesions found on CT Plan: On Flagyl, Meropenem. Con't IV Abx per ID. CT evidence of dilated gallbladder with stones HIDA pending, follow up MRCP 08/20: Multiple small stones in CBD measuring less than 3 mm. CBD is not dilated and is 6.5 cm in diameter. Gallbladder is mildly distended and contains several stones with mild wall thickening. No pericholecystic fluid. Subscapular fluid collections along inferior border of the liver. INR normalized Liver cyst vs abscess on CT - F/u e. histolytica Keep NPO except ice chips Zofran 4mg IVP Q6 F/u blood, urine, stool cultures F/u C. Diff toxin F/u daily labs Enrique Morales, PGY-1
[2018-08-20] MEDS ORDERED: cefTRIAXone 1 gm 1 GM/100 ML BAG IVPB SCH (10:00)
[2018-08-20] MEDS ORDERED: Levothyroxine 112 MCG TAB PO SCH (10:00)
--- NOTE | 2018-08-20 11:34 | MRI ---
Date of service: 08/20/2018 PROCEDURE: Magnetic Resonance Cholangiopancreatography HISTORY: Rule out CBD stone COMPARISON: CT 08/19/2018 TECHNIQUE: Multiplanar, multisequence MR images of the abdomen were obtained, including heavily T2 weighted MRCP images of the biliary system. Rotating maximum intensity projection images of the biliary system were generated. FINDINGS: MRCP: Small stones are seen in the distal common duct. These measure less than 3 mm in diameter. The common duct is not dilated and measures 6.5 mm in diameter. These are best visualized on image 17 series 8 and image 35 series 10 LIVER: As described on CT there is a subcapsular fluid collection along the inferior border of the posterior segment of the right lobe. This measures 12.8 x 4.2 cm on coronal image 9 series 3. GALLBLADDER: The gallbladder is mildly distended and contains several stones. There is mild thickening of the gallbladder wall. There is no pericholecystic fluid. SPLEEN: Unremarkable. PANCREAS: Unremarkable. ADRENALS: Unremarkable. KIDNEYS: There atrophy of the right kidney with multiple cysts. AORTA: No aneurysm. ASCITES: None. OTHER FINDINGS: None. IMPRESSION: Small stones are seen in the distal common duct. These measure less than 3 mm in diameter. The common duct is not dilated and measures 6.5 mm in diameter. The gallbladder is mildly distended and contains several stones. There is mild thickening of the gallbladder wall. There is no pericholecystic fluid. Subcapsular fluid collections along the inferior border of the liver.
--- NOTE | 2018-08-20 11:48 | CP.PCM.CON ---
<Sheila Ponce - Last Filed: 08/20/18 11:59> History of Present Illness - History of Present Illness History of Present Illness: Gastroenterology Fellow/PGY6 Consult Note 83 year old female with PMH of Afib, DVT, (on Coumadin), Hypothyroidism, HTN, and Diabetes presenting with abdominal pain. Patient notes progressive, constant right upper abdominal pain for almost two weeks. Associated episodes of daily vomiting and diarrhea. PCP evaluation with U/S showed gallstones and liver cysts leading to ER presentation. Sick contact with similar symptoms. Denies hematemesis, melena, hematochezia, unintentional weight loss, recent travel or antibiotics. Family History- denies stomach cancer, colon cancer Social History- denies tobacco, alcohol, or illicit drug use Surgical History- right hip ORIF 06/2015, IVC filter Review of Systems - Review of Systems Review of Systems: 12-point review of systems negative except for as above Past Patient History - Infectious Disease Hx of Infectious Diseases: None - Tetanus Immunizations Tetanus Immunization: Unknown - Past Social History Smoking Status: Never Smoked - CARDIAC Hx Cardiac Disorders: Yes Hx Hypertension: Yes - PULMONARY Hx Respiratory Disorders: No - NEUROLOGICAL Hx Neurological Disorder: No - HEENT Hx HEENT Problems: No - RENAL Hx Chronic Kidney Disease: No - ENDOCRINE/METABOLIC Hx Diabetes Mellitus Type 2: Yes Hx Hypothyroidism: Yes - HEMATOLOGICAL/ONCOLOGICAL Hx Blood Disorders: No - INTEGUMENTARY Hx Dermatological Problems: No - MUSCULOSKELETAL/RHEUMATOLOGICAL Hx Musculoskeletal Disorders: No - GASTROINTESTINAL Hx Gastrointestinal Disorders: No - GENITOURINARY/GYNECOLOGICAL Hx Genitourinary Disorders: No - PSYCHIATRIC Hx Psychophysiologic Disorder: No Hx Substance Use: No - SURGICAL HISTORY Hx Orthopedic Surgery: Yes - ANESTHESIA Hx Anesthesia Reactions: No Hx Malignant Hyperthermia: No Meds Allergies/Adverse Reactions: Allergies Allergy/AdvReac Type Severity Reaction Status Date / Time acetaminophen [From Percocet] Allergy DIZZINESS Verified 08/19/18 16:58 oxycodone [From Percocet] Allergy DIZZINESS Verified 08/19/18 16:58 Penicillins Allergy DIZZINESS Verified 08/19/18 16:58 - Medications Medications: Current Medications Meropenem (Merrem Iv 1 Gm Premix) 1 gm in 50 mls @ 100 mls/hr IVPB Q12 [facility]; Protocol Stop: 08/27/18 22:01 Last Admin: 08/19/18 22:22 Dose: 100 mls/hr Metronidazole (Flagyl) 500 mg in 100 mls @ 100 mls/hr IVPB Q8 [facility]; Protocol Last Admin: 08/20/18 06:23 Dose: 100 mls/hr Sodium Chloride (Sodium Chloride 0.9%) 1,000 mls @ 125 mls/hr IV .Q8H [facility] Last Admin: 08/20/18 06:32 Dose: 125 mls/hr Insulin Human Lispro (Humalog Med) 0 units SC ACHS [facility]; Protocol Last Admin: 08/20/18 08:57 Dose: Not Given Levothyroxine Sodium (Synthroid) 100 mcg PO ACB [facility] Last Admin: 08/20/18 08:58 Dose: Not Given Metoprolol Tartrate (Lopressor) 100 mg PO BID [facility] Ondansetron HCl (Zofran Inj) 4 mg IVP Q6H PRN PRN Reason: Nausea/Vomiting Pantoprazole Sodium (Protonix Inj) 40 mg IVP DAILY [facility] Physical Exam - Constitutional Appears: Non-toxic, No Acute Distress - Head Exam Head Exam: ATRAUMATIC, NORMOCEPHALIC - Eye Exam Eye Exam: EOMI, PERRL. absent: Scleral icterus Pupil Exam: PERRL. absent: Miosis, Mydriatic - ENT Exam ENT Exam: Mucous Membranes Moist, Normal Oropharynx - Neck Exam Neck exam: Positive for: Full Rom, Normal Inspection - Respiratory Exam Respiratory Exam: Clear to Auscultation Bilateral. absent: Rales, Rhonchi, Whe ezes - Cardiovascular Exam Cardiovascular Exam: RRR, +S1, +S2. absent: Gallop, Rubs - GI/Abdominal Exam GI & Abdominal Exam: Normal Bowel Sounds, Soft, Tenderness. absent: Distended, Firm, Guarding, Organomegaly, Rebound, Rigid Additional comments: mild RUQ discomfort to palpation - Extremities Exam Extremities exam: Positive for: normal inspection. Negative for: pedal edema - Neurological Exam Neurological exam: Alert - Psychiatric Exam Psychiatric exam: Normal Affect, Normal Mood - Skin Skin Exam: Dry, Intact, Normal Color, Warm Results - Vital Signs Recent Vital Signs: Last Vital Signs Temp 98 F 08/20/18 06:00 Pulse 81 08/20/18 06:00 Resp 20 08/20/18 06:00 BP 162/86 H 08/20/18 06:00 Pulse Ox 95 08/20/18 06:00 - Labs Result Diagrams: 08/20/18 06:00 08/20/18 06:00 Labs: Laboratory Results - last 24 hr 08/19/18 08/19/18 08/19/18 13:20 13:20 13:20 WBC 21.2 H RBC 3.33 L Hgb 10.1 L Hct 31.2 L MCV 93.7 MCH 30.3 MCHC 32.4 RDW 13.3 Plt Count 587 H MPV 9.6 Gran % 90.3 H Lymph % (Auto) 5.3 L Burnett % (Auto) 4.2 Eos % (Auto) 0.2 L Baso % (Auto) 0.0 Gran # 19.09 H Lymph # (Auto) 1.1 L Burnett # (Auto) 0.9 H Eos # (Auto) 0.1 Baso # (Auto) 0.01 Neutrophils % (Manual) 89 H Lymphocytes % (Manual) 3 L Monocytes % (Manual) 6 Eosinophils % (Manual) 1 Myelocytes % 1 Platelet Evaluation High PT 127.7 H INR 10.58 H* APTT 65.8 H pO2 100 H VBG pH 7.45 H VBG pCO2 46.0 VBG HCO3 32.0 H VBG Total CO2 33.4 H VBG O2 Sat (Calc) 97.9 H VBG Base Excess 6.9 H VBG Potassium 3.6 Sodium 132.0 Chloride 95.0 L Glucose 454 H* Lactate 1.4 FiO2 21.0 Potassium Carbon Dioxide Anion Gap BUN Creatinine Est GFR ( Amer) Est GFR (Non-Af Amer) POC Glucose (mg/dL) Random Glucose Calcium Phosphorus Magnesium Total Bilirubin AST ALT Alkaline Phosphatase Troponin I Total Protein Albumin Globulin Albumin/Globulin Ratio Free T4 TSH 3rd Generation Venous Blood Potassium 3.6 Urine Color Urine Appearance Urine pH Ur Specific Dudley Urine Protein Urine Glucose (UA) Urine Ketones Urine Blood Urine Nitrate Urine Bilirubin Urine Urobilinogen Ur Leukocyte Esterase Urine RBC Urine WBC Ur Epithelial Cells Urine Bacteria Urine Other Blood Type Antibody Screen BBK History Checked 08/19/18 08/19/18 08/19/18 13:20 16:21 19:49 WBC RBC Hgb Hct MCV MCH MCHC RDW Plt Count MPV Gran % Lymph % (Auto) Burnett % (Auto) Eos % (Auto) Baso % (Auto) Gran # Lymph # (Auto) Burnett # (Auto) Eos # (Auto) Baso # (Auto) Neutrophils % (Manual) Lymphocytes % (Manual) Monocytes % (Manual) Eosinophils % (Manual) Myelocytes % Platelet Evaluation PT INR APTT pO2 VBG pH VBG pCO2 VBG HCO3 VBG Total CO2 VBG O2 Sat (Calc) VBG Base Excess VBG Potassium Sodium 132 Chloride 94 L Glucose Lactate FiO2 Potassium 3.7 Carbon Dioxide 29 Anion Gap 13 BUN 17 Creatinine 1.1 Est GFR ( Amer) 58 Est GFR (Non-Af Amer) 48 POC Glucose (mg/dL) 266 H Random Glucose 414 H* D Calcium 9.0 Phosphorus 3.1 Magnesium 1.6 L Total Bilirubin 0.5 AST 34 ALT 28 Alkaline Phosphatase 219 H Troponin I 0.02 Total Protein 6.6 Albumin 2.9 L Globulin 3.7 Albumin/Globulin Ratio 0.8 L Free T4 TSH 3rd Generation Venous Blood Potassium Urine Color Urine Appearance Urine pH Ur Specific Dudley Urine Protein Urine Glucose (UA) Urine Ketones Urine Blood Urine Nitrate Urine Bilirubin Urine Urobilinogen Ur Leukocyte Esterase Urine RBC Urine WBC Ur Epithelial Cells Urine Bacteria Urine Other Blood Type O POSITIVE Antibody Screen Negative BBK History Checked Patient has bt 08/19/18 08/19/18 08/20/18 21:22 22:31 00:20 WBC RBC Hgb Hct MCV MCH MCHC RDW Plt Count MPV Gran % Lymph % (Auto) Burnett % (Auto) Eos % (Auto) Baso % (Auto) Gran # Lymph # (Auto) Burnett # (Auto) Eos # (Auto) Baso # (Auto) Neutrophils % (Manual) Lymphocytes % (Manual) Monocytes % (Manual) Eosinophils % (Manual) Myelocytes % Platelet Evaluation PT INR APTT pO2 VBG pH VBG pCO2 VBG HCO3 VBG Total CO2 VBG O2 Sat (Calc) VBG Base Excess VBG Potassium Sodium Chloride Glucose Lactate FiO2 Potassium Carbon Dioxide Anion Gap BUN Creatinine Est GFR ( Amer) Est GFR (Non-Af Amer) POC Glucose (mg/dL) 208 H 208 H Random Glucose Calcium Phosphorus Magnesium Total Bilirubin AST ALT Alkaline Phosphatase Troponin I Total Protein Albumin Globulin Albumin/Globulin Ratio Free T4 TSH 3rd Generation Venous Blood Potassium Urine Color Yellow Urine Appearance Cloudy Urine pH 6.0 Ur Specific Dudley 1.010 Urine Protein 100 H Urine Glucose (UA) 250 H Urine Ketones 15 H Urine Blood Small H Urine Nitrate Positive H Urine Bilirubin Negative Urine Urobilinogen 0.2 Ur Leukocyte Esterase Negative Urine RBC 2 - 5 Urine WBC 10 - 15 Ur Epithelial Cells 6 - 8 Urine Bacteria Large Urine Other Mucus Blood Type Antibody Screen BBK History Checked 08/20/18 08/20/18 08/20/18 01:10 01:10 01:10 WBC 22.3 H RBC 3.10 L Hgb 9.6 L Hct 29.2 L MCV 94.2 MCH 31.0 MCHC 32.9 RDW 13.4 Plt Count 566 H MPV 9.3 Gran % 89.1 H Lymph % (Auto) 5.8 L Burnett % (Auto) 4.8 Eos % (Auto) 0.3 L Baso % (Auto) 0.0 Gran # 19.86 H Lymph # (Auto) 1.3 Burnett # (Auto) 1.1 H Eos # (Auto) 0.1 Baso # (Auto) 0.01 Neutrophils % (Manual) Lymphocytes % (Manual) Monocytes % (Manual) Eosinophils % (Manual) Myelocytes % Platelet Evaluation PT 18.5 H INR 1.61 APTT 42.3 H pO2 VBG pH VBG pCO2 VBG HCO3 VBG Total CO2 VBG O2 Sat (Calc) VBG Base Excess VBG Potassium Sodium 135 Chloride 99 Glucose Lactate FiO2 Potassium 3.3 L Carbon Dioxide 26 Anion Gap 14 BUN 14 Creatinine 1.1 Est GFR ( Amer) 58 Est GFR (Non-Af Amer) 48 POC Glucose (mg/dL) Random Glucose 193 H Calcium 8.7 Phosphorus 3.2 Magnesium 1.6 L Total Bilirubin 0.6 AST 26 ALT 30 Alkaline Phosphatase 192 H Troponin I Total Protein 6.8 Albumin 3.0 Globulin 3.7 Albumin/Globulin Ratio 0.8 L Free T4 TSH 3rd Generation Venous Blood Potassium Urine Color Urine Appearance Urine pH Ur Specific Dud[place] Urine Protein Urine Glucose (UA) Urine Ketones Urine Blood Urine Nitrate Urine Bilirubin Urine Urobilinogen Ur Leukocyte Esterase Urine RBC Urine WBC Ur Epithelial Cells Urine Bacteria Urine Other Blood Type Antibody Screen BBK History Checked 08/20/18 08/20/18 08/20/18 01:59 06:00 06:00 WBC 22.2 H RBC 3.17 L Hgb 9.9 L Hct 30.0 L MCV 94.6 MCH 31.2 MCHC 33.0 RDW 13.5 Plt Count 587 H MPV 9.5 Gran % 86.6 H Lymph % (Auto) 8.0 L Burnett % (Auto) 4.9 Eos % (Auto) 0.4 L Baso % (Auto) 0.1 Gran # 19.27 H Lymph # (Auto) 1.8 Burnett # (Auto) 1.1 H Eos # (Auto) 0.1 Baso # (Auto) 0.02 Neutrophils % (Manual) Lymphocytes % (Manual) Monocytes % (Manual) Eosinophils % (Manual) Myelocytes % Platelet Evaluation PT INR APTT pO2 VBG pH VBG pCO2 VBG HCO3 VBG Total CO2 VBG O2 Sat (Calc) VBG Base Excess VBG Potassium Sodium 135 Chloride 102 Glucose Lactate FiO2 Potassium 4.7 Carbon Dioxide 24 Anion Gap 13 BUN 13 Creatinine 1.1 Est GFR ( Amer) 58 Est GFR (Non-Af Amer) 48 POC Glucose (mg/dL) 175 H Random Glucose 148 H Calcium 8.7 Phosphorus Magnesium Total Bilirubin 0.6 AST 28 ALT 18 Alkaline Phosphatase 190 H Troponin I Total Protein 6.6 Albumin 2.9 L Globulin 3.7 Albumin/Globulin Ratio 0.8 L Free T4 TSH 3rd Generation Venous Blood Potassium Urine Color Urine Appearance Urine pH Ur Specific Dudley Urine Protein Urine Glucose (UA) Urine Ketones Urine Blood Urine Nitrate Urine Bilirubin Urine Urobilinogen Ur Leukocyte Esterase Urine RBC Urine WBC Ur Epithelial Cells Urine Bacteria Urine Other Blood Type Antibody Screen BBK History Checked 08/20/18 08/20/18 08/20/18 06:00 06:00 07:16 WBC RBC Hgb Hct MCV MCH MCHC RDW Plt Count MPV Gran % Lymph % (Auto) Burnett % (Auto) Eos % (Auto) Baso % (Auto) Gran # Lymph # (Auto) Burnett # (Auto) Eos # (Auto) Baso # (Auto) Neutrophils % (Manual) Lymphocytes % (Manual) Monocytes % (Manual) Eosinophils % (Manual) Myelocytes % Platelet Evaluation PT 16.7 H INR 1.44 APTT 41.4 H pO2 VBG pH VBG pCO2 VBG HCO3 VBG Total CO2 VBG O2 Sat (Calc) VBG Base Excess VBG Potassium Sodium Chloride Glucose Lactate FiO2 Potassium Carbon Dioxide Anion Gap BUN Creatinine Est GFR ( Amer) Est GFR (Non-Af Amer) POC Glucose (mg/dL) 149 H Random Glucose Calcium Phosphorus Magnesium Total Bilirubin AST ALT Alkaline Phosphatase Troponin I Total Protein Albumin Globulin Albumin/Globulin Ratio Free T4 1.48 TSH 3rd Generation 3.45 Venous Blood Potassium Urine Color Urine Appearance Urine pH Ur Specific Dud[place] Urine Protein Urine Glucose (UA) Urine Ketones Urine Blood Urine Nitrate Urine Bilirubin Urine Urobilinogen Ur Leukocyte Esterase Urine RBC Urine WBC Ur Epithelial Cells Urine Bacteria Urine Other Blood Type Antibody Screen BBK History Checked Assessment & Plan - Assessment and Plan (Free Text) Assessment: 83 year old female with PMH of Afib, DVT, (on Coumadin), Hypothyroidism, HTN, and Diabetes presenting with abdominal pain, vomiting, and diarrhea. Active treatment of supratherapeutic INR and sepsis in setting of a 11.5x4.2x8.2 h epatic subcapsular fluid collection concerning for hematoma versus abscess and distended gallbladder with mild wall thickening concerning for possible calculous cholecystitis. Plan: -on broad spectrum antibiotics -follow up MRI with MRCP to evaluate biliary tree -normal LFTs with mild ALP elevation -pending stool infectious workup -pending E. histolytica and pancultures -NPO -supportive care- IVFs, anti-emetics, pain control -surgery managing -further recommendations after MRCP results -will follow clinical course <Courtney Redding V - Last Filed: 08/20/18 21:32> Meds - Medications Medications: Current Medications Meropenem (Merrem Iv 1 Gm Premix) 1 gm in 50 mls @ 100 mls/hr IVPB Q12 [facility]; Protocol Stop: 08/27/18 22:01 Last Admin: 08/20/18 14:06 Dose: 100 mls/hr Metronidazole (Flagyl) 500 mg in 100 mls @ 100 mls/hr IVPB Q8 [facility]; Protocol Last Admin: 08/20/18 14:00 Dose: Not Given Sodium Chloride (Sodium Chloride 0.9%) 1,000 mls @ 125 mls/hr IV .Q8H [facility] Last Admin: 08/20/18 06:32 Dose: 125 mls/hr Sodium Chloride (Sodium Chloride 0.9%) 1,000 mls @ 100 mls/hr IV .Q10H [facility] Last Admin: 08/20/18 19:50 Dose: 100 mls/hr Insulin Human Lispro (Humalog Med) 0 units SC ACHS [facility]; Protocol Last Admin: 08/20/18 19:47 Dose: Not Given Levothyroxine Sodium (Synthroid) 100 mcg PO ACB [facility] Last Admin: 08/20/18 08:58 Dose: Not Given Metoprolol Tartrate (Lopressor) 100 mg PO BID [facility] Last Admin: 08/20/18 18:00 Dose: Not Given Ondansetron HCl (Zofran Inj) 4 mg IVP Q6H PRN PRN Reason: Nausea/Vomiting Pantoprazole Sodium (Protonix Inj) 40 mg IVP DAILY [facility] Last Admin: 08/20/18 14:06 Dose: 40 mg Results - Vital Signs Recent Vital Signs: Last Vital Signs Temp 98.2 F 08/20/18 18:15 Pulse 93 H 08/20/18 18:15 Resp 18 08/20/18 18:15 BP 151/78 H 08/20/18 18:15 Pulse Ox 98 08/20/18 18:15 - Labs Result Diagrams: 08/20/18 06:00 08/20/18 06:00 Labs: Laboratory Results - last 24 hr 08/19/18 08/19/18 08/20/18 19:49 22:31 00:20 WBC RBC Hgb Hct MCV MCH MCHC RDW Plt Count MPV Gran % Lymph % (Auto) Burnett % (Auto) Eos % (Auto) Baso % (Auto) Gran # Lymph # (Auto) Burnett # (Auto) Eos # (Auto) Baso # (Auto) PT INR APTT Sodium Potassium Chloride Carbon Dioxide Anion Gap BUN Creatinine Est GFR ( Amer) Est GFR (Non-Af Amer) POC Glucose (mg/dL) 208 H Random Glucose Calcium Phosphorus Magnesium Total Bilirubin AST ALT Alkaline Phosphatase Total Protein Albumin Globulin Albumin/Globulin Ratio Procalcitonin Free T4 TSH 3rd Generation Urine Color Yellow Urine Appearance Cloudy Urine pH 6.0 Ur Specific Dudley 1.010 Urine Protein 100 H Urine Glucose (UA) 250 H Urine Ketones 15 H Urine Blood Small H Urine Nitrate Positive H Urine Bilirubin Negative Urine Urobilinogen 0.2 Ur Leukocyte Esterase Negative Urine RBC 2 - 5 Urine WBC 10 - 15 Ur Epithelial Cells 6 - 8 Urine Bacteria Large Urine Other Mucus Blood Type O POSITIVE Antibody Screen Negative Crossmatch See Detail BBK History Checked Patient has bt 08/20/18 08/20/18 08/20/18 01:10 01:10 01:10 WBC 22.3 H RBC 3.10 L Hgb 9.6 L Hct 29.2 L MCV 94.2 MCH 31.0 MCHC 32.9 RDW 13.4 Plt Count 566 H MPV 9.3 Gran % 89.1 H Lymph % (Auto) 5.8 L Burnett % (Auto) 4.8 Eos % (Auto) 0.3 L Baso % (Auto) 0.0 Gran # 19.86 H Lymph # (Auto) 1.3 Burnett # (Auto) 1.1 H Eos # (Auto) 0.1 Baso # (Auto) 0.01 PT 18.5 H INR 1.61 APTT 42.3 H Sodium 135 Potassium 3.3 L Chloride 99 Carbon Dioxide 26 Anion Gap 14 BUN 14 Creatinine 1.1 Est GFR ( Amer) 58 Est GFR (Non-Af Amer) 48 POC Glucose (mg/dL) Random Glucose 193 H Calcium 8.7 Phosphorus 3.2 Magnesium 1.6 L Total Bilirubin 0.6 AST 26 ALT 30 Alkaline Phosphatase 192 H Total Protein 6.8 Albumin 3.0 Globulin 3.7 Albumin/Globulin Ratio 0.8 L Procalcitonin Free T4 TSH 3rd Generation Urine Color Urine Appearance Urine pH Ur Specific Dud[place] Urine Protein Urine Glucose (UA) Urine Ketones Urine Blood Urine Nitrate Urine Bilirubin Urine Urobilinogen Ur Leukocyte Esterase Urine RBC Urine WBC Ur Epithelial Cells Urine Bacteria Urine Other Blood Type Antibody Screen Crossmatch BBK History Checked 08/20/18 08/20/18 08/20/18 01:59 06:00 06:00 WBC 22.2 H RBC 3.17 L Hgb 9.9 L Hct 30.0 L MCV 94.6 MCH 31.2 MCHC 33.0 RDW 13.5 Plt Count 587 H MPV 9.5 Gran % 86.6 H Lymph % (Auto) 8.0 L Burnett % (Auto) 4.9 Eos % (Auto) 0.4 L Baso % (Auto) 0.1 Gran # 19.27 H Lymph # (Auto) 1.8 Burnett # (Auto) 1.1 H Eos # (Auto) 0.1 Baso # (Auto) 0.02 PT INR APTT Sodium 135 Potassium 4.7 Chloride 102 Carbon Dioxide 24 Anion Gap 13 BUN 13 Creatinine 1.1 Est GFR ( Amer) 58 Est GFR (Non-Af Amer) 48 POC Glucose (mg/dL) 175 H Random Glucose 148 H Calcium 8.7 Phosphorus Magnesium Total Bilirubin 0.6 AST 28 ALT 18 Alkaline Phosphatase 190 H Total Protein 6.6 Albumin 2.9 L Globulin 3.7 Albumin/Globulin Ratio 0.8 L Procalcitonin Free T4 TSH 3rd Generation Urine Color Urine Appearance Urine pH Ur Specific Dudley Urine Protein Urine Glucose (UA) Urine Ketones Urine Blood Urine Nitrate Urine Bilirubin Urine Urobilinogen Ur Leukocyte Esterase Urine RBC Urine WBC Ur Epithelial Cells Urine Bacteria Urine Other Blood Type Antibody Screen Crossmatch BBK History Checked 08/20/18 08/20/18 08/20/18 06:00 06:00 06:00 WBC RBC Hgb Hct MCV MCH MCHC RDW Plt Count MPV Gran % Lymph % (Auto) Burnett % (Auto) Eos % (Auto) Baso % (Auto) Gran # Lymph # (Auto) Burnett # (Auto) Eos # (Auto) Baso # (Auto) PT 16.7 H INR 1.44 APTT 41.4 H Sodium Potassium Chloride Carbon Dioxide Anion Gap BUN Creatinine Est GFR ( Amer) Est GFR (Non-Af Amer) POC Glucose (mg/dL) Random Glucose Calcium Phosphorus Magnesium Total Bilirubin AST ALT Alkaline Phosphatase Total Protein Albumin Globulin Albumin/Globulin Ratio Procalcitonin 0.79 H Free T4 1.48 TSH 3rd Generation 3.45 Urine Color Urine Appearance Urine pH Ur Specific Dud[place] Urine Protein Urine Glucose (UA) Urine Ketones Urine Blood Urine Nitrate Urine Bilirubin Urine Urobilinogen Ur Leukocyte Esterase Urine RBC Urine WBC Ur Epithelial Cells Urine Bacteria Urine Other Blood Type Antibody Screen Crossmatch BBK History Checked 08/20/18 08/20/18 08/20/18 07:16 11:20 13:15 WBC RBC Hgb Hct MCV MCH MCHC RDW Plt Count MPV Gran % Lymph % (Auto) Burnett % (Auto) Eos % (Auto) Baso % (Auto) Gran # Lymph # (Auto) Burnett # (Auto) Eos # (Auto) Baso # (Auto) PT 16.3 H INR 1.41 APTT Sodium Potassium Chloride Carbon Dioxide Anion Gap BUN Creatinine Est GFR ( Amer) Est GFR (Non-Af Amer) POC Glucose (mg/dL) 149 H 170 H Random Glucose Calcium Phosphorus Magnesium Total Bilirubin AST ALT Alkaline Phosphatase Total Protein Albumin Globulin Albumin/Globulin Ratio Procalcitonin Free T4 TSH 3rd Generation Urine Color Urine Appearance Urine pH Ur Specific [place] Urine Protein Urine Glucose (UA) Urine Ketones Urine Blood Urine Nitrate Urine Bilirubin Urine Urobilinogen Ur Leukocyte Esterase Urine RBC Urine WBC Ur Epithelial Cells Urine Bacteria Urine Other Blood Type Antibody Screen Crossmatch BBK History Checked 08/20/18 21:21 WBC RBC Hgb Hct MCV MCH MCHC RDW Plt Count MPV Gran % Lymph % (Auto) Burnett % (Auto) Eos % (Auto) Baso % (Auto) Gran # Lymph # (Auto) Burnett # (Auto) Eos # (Auto) Baso # (Auto) PT INR APTT Sodium Potassium Chloride Carbon Dioxide Anion Gap BUN Creatinine Est GFR ( Amer) Est GFR (Non-Af Amer) POC Glucose (mg/dL) 227 H Random Glucose Calcium Phosphorus Magnesium Total Bilirubin AST ALT Alkaline Phosphatase Total Protein Albumin Globulin Albumin/Globulin Ratio Procalcitonin Free T4 TSH 3rd Generation Urine Color Urine Appearance Urine pH Ur Specific [place] Urine Protein Urine Glucose (UA) Urine Ketones Urine Blood Urine Nitrate Urine Bilirubin Urine Urobilinogen Ur Leukocyte Esterase Urine RBC Urine WBC Ur Epithelial Cells Urine Bacteria Urine Other Blood Type Antibody Screen Crossmatch BBK History Checked Attending/Attestation - Attestation I have personally seen and examined this patient.: Yes I have fully participated in the care of the patient.: Yes I have reviewed all pertinent clinical information: Yes Notes (Text): This is an addendum to GI consult report dictated by the GI Fellow.The patient was seen and examined earlier. Medical records, lab studies, imagings were reviewed. Last 24 hours events reviewed. Agreed with the above treatment plan as outlined in GI Fellow 's notes with the addition of the following 08/20/18 21:31
--- NOTE | 2018-08-20 13:28 | PN ---
DATE: 08/20/2018 SUBJECTIVE: The patient is 83 years old, seen and examined. Has some right upper quadrant discomfort. No nausea or vomiting. She did have history of diarrhea for the last couple of days that she got from [place]. PHYSICAL EXAMINATION: VITAL SIGNS: She is afebrile, pulse 81, respiration 20, blood pressure 162/86. LUNGS: Bilateral fair airflow. No rhonchi or crackle. HEART: S1 and S2 audible. ABDOMEN: Soft. She has right upper quadrant discomfort. NEUROLOGICAL: The patient is awake, alert, oriented, communicative. LABORATORY EXAM: WBC is 22.2, hemoglobin 9.9, hematocrit 30, platelet 587. PT 16.7, INR 1.4, PTT is 41.4. Chemistry: Sodium 135, potassium 4.7, chloride 102, CO2 of 24, BUN 13, creatinine 1.1, blood sugar of 148. HIDA scan is pending. MRCP is pending. ASSESSMENT: 1. Possible acute cholecystitis. 2. Questionable hemorrhage secondary to supratherapeutic INR. 3. History of deep venous thrombosis. 4. History of hypertension. 5. Noninsulin-dependent diabetes. PLAN: I spoke to Dr. Hopkins. Possible laparoscopic cholecystectomy. For the time being, we will continue the patient on metronidazole and she has been started on meropenem. She is on IV fluid. Follow up CBC, CMP in a.m. Cindy Martins MD
[2018-08-20 13:31] LABS: INR 1.41; PROTHROMBIN TIME 16.3 SECONDS (9.4-12.5)
[2018-08-20] MEDS: Meropenem IV 1 gm in NS 1 GM/50 ML BAG IVPB SCH ×2 (14:06→21:53)
--- NOTE | 2018-08-20 14:53 | PN ---
DATE: 08/20/2018 REASON FOR CONSULTATION: for possible gallbladder surgery. In summary, this is an 83-year-old female with past medical history significant for diabetes and history of DVT in the past, on Coumadin, came in with acute cholecystitis,history of hypothyroidism, history of DVT, on Coumadin. No history of arrhythmia, no history of heart condition, no history of coronary artery disease documented or the patient experienced. The patient lives in two family house, goes up and down. No history of dyspnea on exertion, chest pain on exertion. Admitted with cholecystitis. No history arrhythmia. No history of coronary artery disease. History of DVT, status post IVC filter, on Coumadin because of the DVT. Admitted with acute cholecystitis. Admitting INR was 10.8, repeat 1.6 and given FFP today is 1.4. The patient in view of above cleared . No absolute contraindication. No evidence of arrhythmia, no evidence of ischemia, no evidence of congestive heart failure. We will follow with you. Aggressive control of blood pressure. We will start low-dose beta-ean and follow up with you. I will give hydralazine when necessary for systolic more than 170. This note is in addition to dictated by nurse practitioner. Thank you Dr. Martins for providing us the opportunity in taking care of the patient, Ayana Villar. Ramón Shah MD
[2018-08-20] MEDS ORDERED: Iohexol 240 (50 ml) ONE (15:39)
[2018-08-20] MEDS ORDERED: Indomethacin 50 MG Suppository PR ONE (15:41)
[2018-08-20] MEDS ORDERED: Midazolam 2 MG/2 ML VIAL ONE (16:19)
[2018-08-20] MEDS ORDERED: Etomidate 20 mg/10ml Inj IV ONE (16:19)
[2018-08-20] MEDS ORDERED: Succinylcholine 200 mg/10 ml Inj IV ONE (16:20)
--- NOTE | 2018-08-20 21:42 | CP.PCM.PCO ---
Physician Communication Note - Physician Communication Note Physician Communication Note: ERCP:stented/+Ampull tumor/Holding surgery temporarily
[2018-08-20] MEDS: Aztreonam 1 Gm in NS 100mL 100 ML IVPB SCH (22:08)
[2018-08-21] MEDS: metroNIDAZOLE IV 500 mg/100 ml 500 MG/100 ML BAG IVPB SCH ×3 (05:29→22:53)
[2018-08-21] MEDS: Aztreonam 1 Gm in NS 100mL 100 ML IVPB SCH (05:29)
[2018-08-21] MEDS: Sodium Chloride 0.9% 1,000 ML IV SCH ×3 (05:30→12:35)
[2018-08-21 06:55] LABS: INR 1.3; PARTIAL THROMBOPLASTIN TIME 42.4 Seconds (25.1-36.5)
[2018-08-21 07:02] LABS: BASO # 0.02 K/mm3 (0.0-2.0); BASO % 0.1 % (0.0-3.0); EOS # 0.1 (0.0-0.7); EOS % 0.7 % (1.5-5.0); GRAN # 13.68 (1.4-6.5); GRAN % 83.6 % (50.0-68.0); HEMOGLOBIN 9.9 g/dL (12.0-16.0); LYMPH # 1.4 (1.2-3.4); LYMPH % 8.3 % (22.0-35.0); MEAN CELL VOLUME 94.8 fl (80.0-105.0); MEAN CORPUSCULAR HEMOGLOBIN 30.5 pg (25.0-35.0); MEAN CORPUSCULAR HGB CONC 32.1 g/dl (31.0-37.0); MEAN PLATELET VOLUME 9.6 fl (7.0-11.0); MONO # 1.2 (0.1-0.6); MONO % 7.3 % (1.0-6.0); RBC 3.25 10^6/uL (3.5-6.1); RED CELL DISTRIBUTION WIDTH 13.8 % (11.5-14.5); WHITE BLOOD COUNT 16.4 10^3/uL (4.5-11.0)
[2018-08-21 07:30] LABS: ALB/GLOB RATIO 0.8 (1.1-1.8); ALBUMIN 2.9 g/dL (3.0-4.8); CALCIUM 8.5 mg/dL (8.4-10.5)
--- NOTE | 2018-08-21 07:51 | CP.PCM.PCO ---
Physician Communication Note - Physician Communication Note Physician Communication Note: [id number]/Roz liquids-Holding surgery now-DO NOT PROGRESS DIET!
[2018-08-21] MEDS ORDERED: Sodium Chloride 0.9% 1,000 ML IV SCH (08:15)
[2018-08-21] MEDS: Levothyroxine 100 MCG TAB PO SCH (08:45)
[2018-08-21] MEDS: Insulin Lispro (humaLOG) MEDIUM Coverage SC SCH ×4 (08:45→22:05)
--- NOTE | 2018-08-21 10:02 | RAD ---
Date of service: 08/20/2018 PROCEDURE: ERCP HISTORY: ? CBD OBST COMPARISON: TECHNIQUE: 113.1 sec of fluoro time. 18.1 mGy cumulative dose. Four images submitted FINDINGS: The study shows placement of a common duct stent IMPRESSION: As above
[2018-08-21] MEDS ORDERED: Magnesium Sulfate 2 gm/50 ml 2 GM/50 ML BAG IVPB ONE (10:04)
--- NOTE | 2018-08-21 10:11 | PN ---
DATE: 08/21/2018 HISTORY OF PRESENT ILLNESS: Ms. Torres is an 83-year-old female, admitted to the hospital with right upper abdominal pain. She has history of DVT in the past, IVC filter placement. Underwent ERCP with sphincterectomy yesterday by Dr. Redding. 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 Cholecystectomy is on hold. Dr. Hopkins following. Denies any abdominal pain. Mild discomfort of her abdomen. FAMILY HISTORY: Noncontributory. No history of cancer in the family. PAST SURGICAL HISTORY: Right hip replacement, IVC filter placement. PAST MEDICAL HISTORY: Atrial fibrillation, DVT, hypothyroidism, hypertension, diabetes mellitus. ALLERGIES: TYLENOL, OXYCODONE, PENICILLIN. CURRENT MEDICATIONS: Meropenem, Flagyl, IV fluid, insulin, levothyroxine, metoprolol 100 mg p.o. b.i.d., Zofran, Protonix. PHYSICAL EXAMINATION: GENERAL: Comfortable in bed, in no acute distress. VITAL SIGNS: Temperature 98, heart rate is 80 per minute, respiratory rate 18 per minute, blood pressure 160/70, pulse ox is 95% on room air. HEENT: Pallor positive. NECK: No lymphadenopathy. CHEST: Air entry present, equal bilateral. No added sound. CARDIOVASCULAR: S1 and S2 normal. No murmur. No gallop. ABDOMEN: Soft, nontender, nondistended. Mild right upper quadrant discomfort on palpation. EXTREMITY: No edema. ENVIRONMENTAL OFFICER: Alert and oriented x3. No focal sensorimotor deficit. LABORATORY DATA: White count 16.4, hemoglobin 9.9, hematocrit 30.8, platelet 584. Sodium 137, potassium 4, calcium 8.5, phosphorus 3.2, magnesium 1.5, total bilirubin 0.6, AST 27, ALT 24. CA 19-9 pending. MEDICATIONS: Reviewed. 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 2. Atrial fibrillation. 3. History of deep venous thrombosis in the past, status post inferior vena cava filter. 5. Hypothyroidism. 6. Hypertension. PLAN: Biopsy awaited from ampulla of Vater. We will continue insulin for diabetes mellitus, Synthroid 100 mcg p.o. daily. Currently, on IV antibiotics, meropenem. ID following. Zofran 4 mg every 6 hours p.r.n. for nausea, Protonix 40 mg daily. We will continue IV fluid at 60 mL an hour. She has leukocytosis. White count declined from 22,000 to 16,000 today. Hemoglobin stable at 9.9, anemia, has not required blood transfusion yet. Liver functions within normal limits. CA 19-9 pending. Electrolytes normal. Erendira Dai MD [facility]
--- NOTE | 2018-08-21 10:32 | CP.PCM.PN ---
Subjective - Date & Time of Evaluation Date of Evaluation: 08/21/18 Time of Evaluation: 10:28 - Subjective Subjective: General Surgery Progress Note for Dr. Hopkins 83F seen and evaluated at bedside this morning. No acute events overnight. No complaints this morning. Patient states she is feeling better this morning. Tolerating clear liquids. Passing flatus but not bowel movement today. Pain is well controlled. Voiding. Denies f/c, n/v/d, SOB, CP, or urinary symptoms. Objective - Vital Signs/Intake and Output Vital Signs (last 24 hours): Temp Pulse Resp BP Pulse Ox 97.9 F 105 H 20 155/90 H 95 08/21/18 06:00 08/21/18 06:00 08/21/18 06:00 08/21/18 06:00 08/21/18 06:00 Intake and Output: 08/21/18 08/21/18 06:59 18:59 Intake Total 1270 Output Total 260 Balance 1010 - Medications Medications: Current Medications Amlodipine Besylate (Norvasc) 10 mg PO DAILY [facility] Meropenem (Merrem Iv 1 Gm Premix) 1 gm in 50 mls @ 100 mls/hr IVPB Q12 [facility]; Protocol Stop: 08/27/18 22:01 Last Admin: 08/20/18 21:53 Dose: 100 mls/hr Sodium Chloride (Sodium Chloride 0.9%) 1,000 mls @ 50 mls/hr IV .Q20H [facility] Last Admin: 08/21/18 08:46 Dose: 50 mls/hr Magnesium Sulfate (Magnesium Sulfate 2 Gm/50 Ml Water) 2 gm in 50 mls @ 50 mls/hr IVPB ONCE ONE Stop: 08/21/18 11:03 Insulin Human Lispro (Humalog Med) 0 units SC ACHS [facility]; Protocol Last Admin: 08/21/18 08:45 Dose: 1 unit Levothyroxine Sodium (Synthroid) 125 mcg PO ACB [facility] Metoprolol Tartrate (Lopressor) 100 mg PO BID [facility] Last Admin: 08/20/18 18:00 Dose: Not Given Ondansetron HCl (Zofran Inj) 4 mg IVP Q6H PRN PRN Reason: Nausea/Vomiting Pantoprazole Sodium (Protonix Inj) 40 mg IVP DAILY [facility] Last Admin: 08/20/18 14:06 Dose: 40 mg - Labs Labs: 08/21/18 06:30 08/21/18 06:30 PT 15.0 SECONDS (9.4-12.5) H 08/21/18 06:30 INR 1.30 08/21/18 06:30 APTT 42.4 Seconds (25.1-36.5) H 08/21/18 06:30 - Constitutional Appears: Well, Non-toxic, No Acute Distress - Head Exam Head Exam: ATRAUMATIC, NORMAL INSPECTION, NORMOCEPHALIC - Eye Exam Eye Exam: EOMI - ENT Exam ENT Exam: Mucous Membranes Moist - Respiratory Exam Respiratory Exam: NORMAL BREATHING PATTERN - GI/Abdominal Exam GI & Abdominal Exam: Soft, Normal Bowel Sounds. absent: Tenderness - Neurological Exam Neurological Exam: Alert, Awake - Psychiatric Exam Psychiatric exam: Normal Affect, Normal Mood - Skin Skin Exam: Dry, Intact, Normal Color, Warm Assessment and Plan - Assessment and Plan (Free Text) Assessment: 83F w/ calculous cholecystitis and liver abscess vs cyst s/p ERCP w/ CBD stentin g Plan: Imaging shows mass at ampulla - bx taken, awaiting pathology Will delay surgical intervention at this present time Tolerating clears - do not advance diet IV Abx per ID - currently on Merrem NS@ KVO Antiemetics and analgesics PRN F/u c.diff and cultures F/u e. histolytica Daily labs - will continue to monitor Further recommendations per Dr. Sandeep Riojas PGY1
--- NOTE | 2018-08-21 10:37 | CP.PCM.PN ---
<Alessio Abdi - Last Filed: 08/21/18 12:29> Subjective - Date & Time of Evaluation Date of Evaluation: 08/21/18 Time of Evaluation: 10:34 - Subjective Subjective: "I feel 100% better today". No acute overnight events. Tolerating diet, no n/v/abdominal pain. Objective - Vital Signs/Intake and Output Vital Signs (last 24 hours): Temp Pulse Resp BP Pulse Ox 97.9 F 105 H 20 155/90 H 95 08/21/18 06:00 08/21/18 06:00 08/21/18 06:00 08/21/18 06:00 08/21/18 06:00 Intake and Output: 08/21/18 08/21/18 06:59 18:59 Intake Total 1270 Output Total 260 Balance 1010 - Medications Medications: Current Medications Amlodipine Besylate (Norvasc) 10 mg PO DAILY [facility] Meropenem (Merrem Iv 1 Gm Premix) 1 gm in 50 mls @ 100 mls/hr IVPB Q12 [facility]; Protocol Stop: 08/27/18 22:01 Last Admin: 08/20/18 21:53 Dose: 100 mls/hr Sodium Chloride (Sodium Chloride 0.9%) 1,000 mls @ 50 mls/hr IV .Q20H [facility] Last Admin: 08/21/18 08:46 Dose: 50 mls/hr Magnesium Sulfate (Magnesium Sulfate 2 Gm/50 Ml Water) 2 gm in 50 mls @ 50 mls/hr IVPB ONCE ONE Stop: 08/21/18 11:03 Insulin Human Lispro (Humalog Med) 0 units SC ACHS [facility]; Protocol Last Admin: 08/21/18 08:45 Dose: 1 unit Levothyroxine Sodium (Synthroid) 125 mcg PO ACB [facility] Metoprolol Tartrate (Lopressor) 100 mg PO BID [facility] Last Admin: 08/20/18 18:00 Dose: Not Given Ondansetron HCl (Zofran Inj) 4 mg IVP Q6H PRN PRN Reason: Nausea/Vomiting Pantoprazole Sodium (Protonix Inj) 40 mg IVP DAILY [facility] Last Admin: 08/20/18 14:06 Dose: 40 mg - Labs Labs: 08/21/18 06:30 08/21/18 06:30 PT 15.0 SECONDS (9.4-12.5) H 08/21/18 06:30 INR 1.30 08/21/18 06:30 APTT 42.4 Seconds (25.1-36.5) H 08/21/18 06:30 - Constitutional Appears: Non-toxic, No Acute Distress - Head Exam Head Exam: ATRAUMATIC, NORMAL INSPECTION - Eye Exam Eye Exam: EOMI, Normal appearance - ENT Exam ENT Exam: Mucous Membranes Moist, Normal Exam - Respiratory Exam Respiratory Exam: Clear to Ausculation Bilateral, NORMAL BREATHING PATTERN - Cardiovascular Exam Cardiovascular Exam: REGULAR RHYTHM, +S1, +S2 - GI/Abdominal Exam GI & Abdominal Exam: Soft, Normal Bowel Sounds. absent: Tenderness - Extremities Exam Extremities Exam: Full ROM, Normal Inspection Additional comments: RIght arm with mild edema. - Psychiatric Exam Psychiatric exam: Normal Affect, Normal Mood - Skin Skin Exam: Dry, Normal Color Assessment and Plan - Assessment and Plan (Free Text) Assessment: 83 year old female with PMH of Afib, DVT, (on Coumadin), Hypothyroidism, HTN, and Diabetes presenting with abdominal pain, vomiting, and diarrhea. Active treatment of supratherapeutic INR and sepsis in setting of a 11.5x4.2x8.2 hepatic subcapsular fluid collection concerning for hematoma versus abscess and distended gallbladder with mild wall thickening concerning for possible calculous cholecystitis. Plan: -Continue antibiotics per ID -MRI/MRCP with CBD stones. -s/p ERCP 08/20/18 - 10x7 Plastic stent placed. Will need to be removed in 4- 6wks. -Ampullary lesion seen and biopsy. F/U biopsy results. -pending stool infectious workup -pending E. histolytica and pancultures -CLD -supportive care- IVFs, anti-emetics, pain control -Follow surgical recommendations regarding cholecystitis <Miladis,Kovil V - Last Filed: 08/21/18 23:45> Objective - Vital Signs/Intake and Output Vital Signs (last 24 hours): Temp Pulse Resp BP Pulse Ox 98.6 F 87 20 149/81 95 08/21/18 18:00 08/21/18 18:00 08/21/18 18:00 08/21/18 18:00 08/21/18 18:00 Intake and Output: 08/21/18 08/22/18 18:59 06:59 Intake Total 354 Balance 354 - Medications Medications: Current Medications Amlodipine Besylate (Norvasc) 10 mg PO DAILY [facility] Last Admin: 08/21/18 11:21 Dose: 10 mg Meropenem (Merrem Iv 1 Gm Premix) 1 gm in 50 mls @ 100 mls/hr IVPB Q12 [facility]; Protocol Stop: 08/27/18 22:01 Last Admin: 08/21/18 22:00 Dose: 100 mls/hr Metronidazole (Flagyl) 500 mg in 100 mls @ 100 mls/hr IVPB Q8 [facility]; Protocol Last Admin: 08/21/18 22:53 Dose: 100 mls/hr Sodium Chloride (Sodium Chloride 0.9%) 1,000 mls @ 10 mls/hr IV .Q24H [facility] Last Admin: 08/21/18 12:35 Dose: 10 mls/hr Insulin Human Lispro (Humalog Med) 0 units SC ACHS [facility]; Protocol Last Admin: 08/21/18 22:05 Dose: Not Given Levothyroxine Sodium (Synthroid) 125 mcg PO ACB [facility] Metoprolol Tartrate (Lopressor) 100 mg PO BID [facility] Last Admin: 08/21/18 17:56 Dose: 100 mg Ondansetron HCl (Zofran Inj) 4 mg IVP Q6H PRN PRN Reason: Nausea/Vomiting Pantoprazole Sodium (Protonix Inj) 40 mg IVP DAILY [facility] Last Admin: 08/21/18 11:20 Dose: 40 mg - Labs Labs: 08/21/18 06:30 08/21/18 06:30 PT 15.0 SECONDS (9.4-12.5) H 08/21/18 06:30 INR 1.30 08/21/18 06:30 APTT 42.4 Seconds (25.1-36.5) H 08/21/18 06:30 Attending/Attestation - Attestation I have personally seen and examined this patient.: Yes I have fully participated in the care of the patient.: Yes I have reviewed all pertinent clinical information, including history, physical exam and plan: Yes Notes (Text): This is an addendum to GI progress report dictated by the GI Fellow.The patient was seen and examined earlier. Medical records, lab studies, imagings were reviewed. Last 24 hours events reviewed. Agreed with the above treatment plan as outlined in GI Fellow 's notes with the addition of the following 08/21/18 23:44
[2018-08-21] MEDS: Meropenem IV 1 gm in NS 1 GM/50 ML BAG IVPB SCH ×2 (12:22→22:00)
--- NOTE | 2018-08-21 13:11 | PN ---
DATE: 08/21/2018 REASON FOR CONSULTATION: Followup cardiac evaluation for possible gallbladder surgery, cholecystitis, status post ERCP. SUBJECTIVE: The patient denies any chest pain. Yesterday, the patient underwent endoscopy, , ERCP, and extraction of sphincterotomy and extraction of a stone from biliary duct. The patient denies any chest pain, shortness of breath, any palpitations, feels a lot better. OBJECTIVE: GENERAL: Not in apparent distress. VITAL SIGNS: As follows, temperature afebrile, heart rate 96, blood pressure 155/90. HEENT: PERRLA. Extraocular muscles intact. NECK: Supple. No carotid bruit or thyromegaly. CHEST: Clear to auscultation. HEART: S1, S2 regular. ABDOMEN: Soft. EXTREMITIES: Clubbing and cyanosis negative. Started clear liquid today. LABORATORY DATA: WBC 16.4, hemoglobin 9.8, hematocrit 30.8, platelet count 584,000. Chemistry shows sodium 137, potassium 4, chloride 104, carbon dioxide 22, anion gap of 15, BUN of 12, creatinine 1.2. TSH 5.36. IMPRESSION: An 83-year-old female with past medical history of hypertension; history of deep vein thrombosis, on Coumadin; came with acute cholecystitis, history of hypothyroidism, history of deep vein thrombosis, on Coumadin. Yesterday, the patient underwent endoscopic retrograde cholangiopancreatography and extraction of stones from gallbladder. Elevated WBC 20,000, now patient's WBC is trending down. After endoscopic retrograde cholangiopancreatography, patient feels better. Patient's admitting INR was pretty elevated at 10.6 with regards with FFP. A repeat INR is 1.3 today. RECOMMENDATIONS: Patient started on clear liquids. We will resume back oral medications. Continue metoprolol twice a day. We will add on amlodipine 5 mg because of the elevated blood pressure and also we will increase levothyroxine to 125 because the patient's TSH is elevated while the patient is on 100 mcg of levothyroxine. I will repeat the blood workup in the morning. We will give Norvasc 10 mg from today. We will repeat CBC and BMP in the morning. Today magnesium 1.5 was supplemented. We will repeat mag phos level in the morning. Thank you Dr. Hopkins/Dr. Martins for providing us the opportunity in taking care of the patient, Aurea Piña. Ramón Shah MD
--- NOTE | 2018-08-21 14:41 | PN ---
DATE: 08/21/2018 SUBJECTIVE: The patient is doing well this morning. No fevers, no chills, no nausea, no vomiting. PHYSICAL EXAMINATION: VITAL SIGNS: Temperature is 98, blood pressure is 150/90, respiratory rate of 20, and heart rate of 96. HEENT: Unremarkable. NECK: Supple. LUNGS: Have decreased breath sounds. HEART: Normal S1 and S2. ABDOMEN: Soft, nontender. LABORATORY EXAMINATION: Reveals a white count of 16,400, hemoglobin of 9, platelets of 584. Chemistries reveal BUN of 4, creatinine of 1.2. Procalcitonin is noted. Urinalysis is noted and microbiology reveals gram-negative nimesh and the blood cultures have no growth, and Dr. Hopkins' report from today is reviewed, communication report. Holding surgery for now and the operative note is reviewed. The patient had endoscopy or ERCP and lithotripsy, sphincterotomy and balloon extraction of a stone and insertion of biliary stent biopsy and she said she has much improved today. ASSESSMENT AND PLAN: An 83-year-old female with diabetes, hypertension, hypothyroidism, deep vein thrombosis, admitted with right upper quadrant pain, nausea, vomiting, diarrhea and sepsis with acute cholecystitis and common bile duct stone, questionable in the liver and complication of gallbladder, and the patient is doing much better and white count is improving, currently on Flagyl and meropenem. We will continue the meropenem and discontinue the Flagyl and the patient also has gram-negative nimesh in the urine with 10 to 15 wbc's and urine culture with large bacteria. We will follow the wbc's, the patient's symptoms and case discussed with Dr. Hopkins. Shaun Hassan MD
[2018-08-22] MEDS: metroNIDAZOLE IV 500 mg/100 ml 500 MG/100 ML BAG IVPB SCH ×3 (05:36→21:55)
--- NOTE | 2018-08-22 06:39 | CP.PCM.PN ---
Subjective - Date & Time of Evaluation Date of Evaluation: 08/22/18 Time of Evaluation: 06:10 - Subjective Subjective: Awake, alert, no distress, complaint of mild abdominal pain Reason for consultation and follow up: Cardiac evaluation and risk strati fication for ERCP, post ERCP. History of Diabetes, hypertension, hypothyroid, DVT (on Coumadin) Seen and examined by me and Dr. Shah Objective - Vital Signs/Intake and Output Vital Signs (last 24 hours): Temp Pulse Resp BP Pulse Ox 98.0 F 87 20 144/76 96 08/22/18 06:00 08/22/18 06:00 08/22/18 06:00 08/22/18 06:00 08/22/18 06:00 Intake and Output: 08/21/18 08/22/18 18:59 06:59 Intake Total 534 Output Total 2 Balance 532 - Medications Medications: Current Medications Amlodipine Besylate (Norvasc) 10 mg PO DAILY [facility] Last Admin: 08/21/18 11:21 Dose: 10 mg Meropenem (Merrem Iv 1 Gm Premix) 1 gm in 50 mls @ 100 mls/hr IVPB Q12 [facility]; Protocol Stop: 08/27/18 22:01 Last Admin: 08/21/18 22:00 Dose: 100 mls/hr Metronidazole (Flagyl) 500 mg in 100 mls @ 100 mls/hr IVPB Q8 [facility]; Protocol Last Admin: 08/22/18 05:36 Dose: 100 mls/hr Sodium Chloride (Sodium Chloride 0.9%) 1,000 mls @ 10 mls/hr IV .Q24H [facility] Last Admin: 08/21/18 12:35 Dose: 10 mls/hr Insulin Human Lispro (Humalog Med) 0 units SC ACHS [facility]; Protocol Last Admin: 08/21/18 22:05 Dose: Not Given Levothyroxine Sodium (Synthroid) 125 mcg PO ACB [facility] Metoprolol Tartrate (Lopressor) 100 mg PO BID [facility] Last Admin: 08/21/18 17:56 Dose: 100 mg Ondansetron HCl (Zofran Inj) 4 mg IVP Q6H PRN PRN Reason: Nausea/Vomiting Pantoprazole Sodium (Protonix Inj) 40 mg IVP DAILY [facility] Last Admin: 08/21/18 11:20 Dose: 40 mg - Labs Labs: 08/21/18 06:30 08/21/18 06:30 PT 15.0 SECONDS (9.4-12.5) H 08/21/18 06:30 INR 1.30 08/21/18 06:30 APTT 42.4 Seconds (25.1-36.5) H 08/21/18 06:30 - Constitutional Appears: Non-toxic, No Acute Distress - Head Exam Head Exam: NORMAL INSPECTION, NORMOCEPHALIC - Eye Exam Eye Exam: Normal appearance Pupil Exam: NORMAL ACCOMODATION - ENT Exam ENT Exam: Mucous Membranes Dry, Mucous Membranes Moist - Respiratory Exam Respiratory Exam: Clear to Ausculation Bilateral, NORMAL BREATHING PATTERN - Cardiovascular Exam Cardiovascular Exam: REGULAR RHYTHM, +S1, +S2 Additional comments: Telemetry NSR 80's - GI/Abdominal Exam GI & Abdominal Exam: Soft, Normal Bowel Sounds - Extremities Exam Extremities Exam: Full ROM, Normal Capillary Refill - Neurological Exam Neurological Exam: Alert, Awake, Oriented x3 - Psychiatric Exam Psychiatric exam: Normal Affect, Normal Mood - Skin Skin Exam: Dry, Normal Color, Warm Assessment and Plan - Assessment and Plan (Free Text) Assessment: An 83 year old female who came in to the ER due to elevated INR. Patient is on Coumadin for DVT. INR was 12.9 by [facility] thus sent to the ER by PMD. She also complaint of RUQ pain and nausea and vomiting and diarrhea. She had an outpatient US of the abdomen and showed gallstone. History of Diabetes, hypertension, hypothyroid, DVT. She was given FFP and vitamin K for elevated INR. Repeat INR now is 1.44. Denies chest pain or shortness of breath. Troponin normal. EKG normal sinus rhythm, no ischemia, no ST changes.Chest X ray showed no pulmonary congestion. Last Echo done 07/16/15 showed Normal ventricle, LVEF 55-60%,mild aortic regurgitation, aortic sclerosis vs. mild As,trace mitral regurgitation, mild tricuspid regurgitation. RVSP 42 mmHg. Patient is cleared for surgery with moderate risk. No absolute contraindication. No evidence of aaron cardial infarction or congestive heart failure. Status post ERCP. Plan: Status post ERCP with CBD stenting mass at ampulla,biopsy done, awaiting pathology result delay surgical intervention per General surgery Denies chest pain or shortness of breath Mild abdominal pain, Motrin one dose given, allergic to Tylenol Heart rate controlled Blood pressure controlled On Synthroid 125 mcg daily, Lopressor 100 mg BID,Norvasc 10 mg daily Continue to hold Coumadin for possible surgery Continue antibiotics as ordered Continue current treatment Continue current medications Chart reviewed Will follow up Plan and treatment discussed with Dr. Shah
[2018-08-22 06:57] LABS: BASO # 0.02 K/mm3 (0.0-2.0); BASO % 0.1 % (0.0-3.0); EOS # 0.2 (0.0-0.7); EOS % 1.4 % (1.5-5.0); GRAN # 11.93 (1.4-6.5); GRAN % 82.3 % (50.0-68.0); HEMOGLOBIN 10.2 g/dL (12.0-16.0); LYMPH # 1.4 (1.2-3.4); LYMPH % 9.9 % (22.0-35.0); MEAN CELL VOLUME 94.3 fl (80.0-105.0); MEAN CORPUSCULAR HEMOGLOBIN 30.7 pg (25.0-35.0); MEAN CORPUSCULAR HGB CONC 32.6 g/dl (31.0-37.0); MEAN PLATELET VOLUME 9.3 fl (7.0-11.0); MONO # 0.9 (0.1-0.6); MONO % 6.3 % (1.0-6.0); RBC 3.32 10^6/uL (3.5-6.1); RED CELL DISTRIBUTION WIDTH 13.7 % (11.5-14.5); WHITE BLOOD COUNT 14.5 10^3/uL (4.5-11.0)
[2018-08-22 07:29] LABS: CALCIUM 8.4 mg/dL (8.4-10.5)
[2018-08-22] MEDS: Insulin Lispro (humaLOG) MEDIUM Coverage SC SCH ×4 (08:25→21:56)
[2018-08-22] MEDS: Levothyroxine 125 MCG TAB PO SCH (08:25)
--- NOTE | 2018-08-22 08:44 | CP.PCM.PN ---
Subjective - Date & Time of Evaluation Date of Evaluation: 08/22/18 Time of Evaluation: 08:25 - Subjective Subjective: PGY-1 Surgery Progress Note Patient seen and examined at bedside. No acute events overnight. Patient states her symptoms have significantly improved and is she is no longer experiencing and abdominal pain, nausea, or vomiting. Patient is tolerating clear liquid diet. We will maintain patient on clear liquids at this time. Patient denies chest pain, shortness of breath, headache, dizziness. We will continue to follow. Objective - Vital Signs/Intake and Output Vital Signs (last 24 hours): Temp Pulse Resp BP Pulse Ox 98.0 F 87 20 144/76 96 08/22/18 06:00 08/22/18 06:00 08/22/18 06:00 08/22/18 06:00 08/22/18 06:00 Intake and Output: 08/22/18 08/22/18 06:59 18:59 Intake Total 784 Output Total 2 Balance 782 - Medications Medications: Current Medications Amlodipine Besylate (Norvasc) 10 mg PO DAILY [facility] Last Admin: 08/21/18 11:21 Dose: 10 mg Meropenem (Merrem Iv 1 Gm Premix) 1 gm in 50 mls @ 100 mls/hr IVPB Q12 [facility]; Protocol Stop: 08/27/18 22:01 Last Admin: 08/21/18 22:00 Dose: 100 mls/hr Metronidazole (Flagyl) 500 mg in 100 mls @ 100 mls/hr IVPB Q8 [facility]; Protocol Last Admin: 08/22/18 05:36 Dose: 100 mls/hr Sodium Chloride (Sodium Chloride 0.9%) 1,000 mls @ 10 mls/hr IV .Q24H [facility] Last Admin: 08/21/18 12:35 Dose: 10 mls/hr Insulin Human Lispro (Humalog Med) 0 units SC ACHS [facility]; Protocol Last Admin: 08/21/18 22:05 Dose: Not Given Levothyroxine Sodium (Synthroid) 125 mcg PO ACB [facility] Metoprolol Tartrate (Lopressor) 100 mg PO BID [facility] Last Admin: 08/21/18 17:56 Dose: 100 mg Ondansetron HCl (Zofran Inj) 4 mg IVP Q6H PRN PRN Reason: Nausea/Vomiting Pantoprazole Sodium (Protonix Inj) 40 mg IVP DAILY [facility] Last Admin: 08/21/18 11:20 Dose: 40 mg - Labs Labs: 08/22/18 06:30 08/22/18 06:30 PT 15.0 SECONDS (9.4-12.5) H 08/21/18 06:30 INR 1.30 08/21/18 06:30 APTT 42.4 Seconds (25.1-36.5) H 08/21/18 06:30 Physical Exam - Constitutional Appears: Well, Non-toxic, No Acute Distress - Head Exam Head Exam: ATRAUMATIC, NORMAL INSPECTION, NORMOCEPHALIC - Eye Exam Eye Exam: EOMI - ENT Exam ENT Exam: Mucous Membranes Moist - Respiratory Exam Respiratory Exam: NORMAL BREATHING PATTERN - GI/Abdominal Exam GI & Abdominal Exam: Soft, Normal Bowel Sounds. absent: Tenderness - Neurological Exam Neurological Exam: Alert, Awake - Psychiatric Exam Psychiatric exam: Normal Affect, Normal Mood - Skin Skin Exam: Dry, Intact, Normal Color, Warm Assessment and Plan - Assessment and Plan (Free Text) Assessment: 83F w/ calculous cholecystitis and liver abscess vs cyst s/p ERCP w/ CBD stenting Plan: Awaiting biopsy results of ampullary mass, follow up Maintain patient on clear liquid diet at this time Continue to delay surgical intervention at this present time Will continued IV Abx per ID - currently on Flagyl and Meropenem Zofran and tylenol prn Urine Cx grew klebsiella 08/20 Blood cultures NG FINAL F/u c. diff F/u e. histolytica Continue to monitor daily labs Further recommendations per Dr. Sandeep Morales PGY1
--- NOTE | 2018-08-22 09:19 | PN ---
DATE: 08/22/2018 SUBJECTIVE: Patient is in bed, in no acute distress, nontoxic, she is awake and alert, doing well. She has no pain. PHYSICAL EXAMINATION: VITAL SIGNS: Temperature is 98, blood pressure is 140/70, respiratory rate of 18. HEENT: Unremarkable. NECK: Supple. LUNGS: Have decreased breath sounds. HEART: Normal S1, S2. ABDOMEN: Soft, nontender. No rebound, no guarding. No masses. LABORATORY EXAMINATION: Reveals a white count of 14,500, hemoglobin of 10. BUN of 12, creatinine of 0.1. Procalcitonin is 0.50. Urinalysis is noted. Microbiology reveals a gram-negative nimesh in the urine. Blood cultures are negative. ASSESSMENT AND PLAN: An 83-year-old female with past medical history of atrial fibrillation; deep venous thrombosis, on Coumadin; hypothyroidism; hypertension; diabetes; admitted with abdominal pain and diarrhea. Supratherapeutic INR and sepsis in the setting of 11 x 8 x 4, subcapsular fluid collection, concerned about hematoma versus liver abscess gallbladder and the patient had an ERCP. Had endoscopy with ERCP and lithotripsy and sphincterotomy and balloon extraction of stones and insertion of a biliary stent and biopsy and with sepsis and acute cholecystitis, bile duct stones, currently on meropenem and Flagyl was added again by Dr. Hopkins. Meropenem is adequate, gram negative and anaerobic coverage and Flagyl is not necessary. We will follow with you. Shaun Hassan MD
[2018-08-22] MEDS: Meropenem IV 1 gm in NS 1 GM/50 ML BAG IVPB SCH ×2 (09:25→21:56)
--- NOTE | 2018-08-22 11:45 | CP.PCM.PN ---
<Alessio Abdi - Last Filed: 08/22/18 13:16> Subjective - Date & Time of Evaluation Date of Evaluation: 08/22/18 Time of Evaluation: 11:43 - Subjective Subjective: Patient "Feels good". Tolerating diet. Surgery on hold for now. No complaints of nausea, abdominal pain. Objective - Vital Signs/Intake and Output Vital Signs (last 24 hours): Temp Pulse Resp BP Pulse Ox 98.0 F 98 H 20 143/77 96 08/22/18 06:00 08/22/18 09:25 08/22/18 06:00 08/22/18 09:25 08/22/18 06:00 Intake and Output: 08/22/18 08/22/18 06:59 18:59 Intake Total 784 Output Total 2 Balance 782 - Medications Medications: Current Medications Amlodipine Besylate (Norvasc) 10 mg PO DAILY [facility] Last Admin: 08/22/18 09:25 Dose: 10 mg Meropenem (Merrem Iv 1 Gm Premix) 1 gm in 50 mls @ 100 mls/hr IVPB Q12 [facility]; Protocol Stop: 08/27/18 22:01 Last Admin: 08/22/18 09:25 Dose: 100 mls/hr Metronidazole (Flagyl) 500 mg in 100 mls @ 100 mls/hr IVPB Q8 [facility]; Protocol Last Admin: 08/22/18 05:36 Dose: 100 mls/hr Sodium Chloride (Sodium Chloride 0.9%) 1,000 mls @ 10 mls/hr IV .Q24H [facility] Last Admin: 08/21/18 12:35 Dose: 10 mls/hr Insulin Human Lispro (Humalog Med) 0 units SC ACHS [facility]; Protocol Last Admin: 08/22/18 08:25 Dose: 3 unit Levothyroxine Sodium (Synthroid) 125 mcg PO ACB [facility] Last Admin: 08/22/18 08:25 Dose: 125 mcg Metoprolol Tartrate (Lopressor) 100 mg PO BID [facility] Last Admin: 08/22/18 09:25 Dose: 100 mg Ondansetron HCl (Zofran Inj) 4 mg IVP Q6H PRN PRN Reason: Nausea/Vomiting Pantoprazole Sodium (Protonix Inj) 40 mg IVP DAILY [facility] Last Admin: 08/22/18 09:24 Dose: 40 mg - Labs Labs: 08/22/18 06:30 08/22/18 06:30 PT 15.0 SECONDS (9.4-12.5) H 08/21/18 06:30 INR 1.30 08/21/18 06:30 APTT 42.4 Seconds (25.1-36.5) H 08/21/18 06:30 - Constitutional Appears: Non-toxic, No Acute Distress - Head Exam Head Exam: NORMAL INSPECTION - Eye Exam Eye Exam: Normal appearance - ENT Exam ENT Exam: Mucous Membranes Moist - Cardiovascular Exam Cardiovascular Exam: REGULAR RHYTHM, +S1, +S2 - GI/Abdominal Exam GI & Abdominal Exam: Soft, Normal Bowel Sounds. absent: Tenderness - Neurological Exam Neurological Exam: Alert, Awake, Oriented x3 - Psychiatric Exam Psychiatric exam: Normal Affect, Normal Mood - Skin Skin Exam: Dry, Normal Color Assessment and Plan - Assessment and Plan (Free Text) Assessment: 83 year old female with PMH of Afib, DVT, (on Coumadin), Hypothyroidism, HTN, and Diabetes presenting with abdominal pain, vomiting, and diarrhea. Active treatment of supratherapeutic INR and sepsis in setting of a 11.5x4.2x8.2 hepatic subcapsular fluid collection concerning for hematoma versus abscess and distended gallbladder with mild wall thickening concerning for possible calculous cholecystitis. Plan: -Continue antibiotics per ID -MRI/MRCP with CBD stones. -s/p ERCP 08/20/18 - 10x7 Plastic stent placed. Will need to be removed in 4- 6wks. -Ampullary lesion seen and biopsy. F/U biopsy results. -pending stool infectious workup -pending E. histolytica and pancultures -Continue CLD, defer further diet to surgical team. -supportive care- IVFs, anti-emetics, pain control -Follow surgical recommendations regarding cholecystitis <Miladis,Kovil V - Last Filed: 08/22/18 18:53> Objective - Vital Signs/Intake and Output Vital Signs (last 24 hours): Temp Pulse Resp BP Pulse Ox 97.9 F 89 18 130/70 96 08/22/18 12:00 08/22/18 17:24 08/22/18 12:00 08/22/18 17:24 08/22/18 06:00 Intake and Output: 08/22/18 08/22/18 06:59 18:59 Intake Total 784 1540 Output Total 2 300 Balance 782 1240 - Medications Medications: Current Medications Amlodipine Besylate (Norvasc) 10 mg PO DAILY [facility] Last Admin: 08/22/18 09:25 Dose: 10 mg Meropenem (Merrem Iv 1 Gm Premix) 1 gm in 50 mls @ 100 mls/hr IVPB Q12 [facility]; Protocol Stop: 08/27/18 22:01 Last Admin: 08/22/18 09:25 Dose: 100 mls/hr Metronidazole (Flagyl) 500 mg in 100 mls @ 100 mls/hr IVPB Q8 [facility]; Protocol Last Admin: 08/22/18 13:30 Dose: 100 mls/hr Sodium Chloride (Sodium Chloride 0.9%) 1,000 mls @ 10 mls/hr IV .Q24H [facility] Last Admin: 08/22/18 12:49 Dose: Not Given Insulin Human Lispro (Humalog Med) 0 units SC ACHS [facility]; Protocol Last Admin: 08/22/18 17:22 Dose: 5 unit Levothyroxine Sodium (Synthroid) 125 mcg PO ACB [facility] Last Admin: 08/22/18 08:25 Dose: 125 mcg Metoprolol Tartrate (Lopressor) 100 mg PO BID [facility] Last Admin: 08/22/18 17:24 Dose: 100 mg Ondansetron HCl (Zofran Inj) 4 mg IVP Q6H PRN PRN Reason: Nausea/Vomiting Pantoprazole Sodium (Protonix Inj) 40 mg IVP DAILY [facility] Last Admin: 08/22/18 09:24 Dose: 40 mg - Labs Labs: 08/22/18 06:30 08/22/18 06:30 PT 15.0 SECONDS (9.4-12.5) H 08/21/18 06:30 INR 1.30 08/21/18 06:30 APTT 42.4 Seconds (25.1-36.5) H 08/21/18 06:30 Attending/Attestation - Attestation I have personally seen and examined this patient.: Yes I have fully participated in the care of the patient.: Yes I have reviewed all pertinent clinical information, including history, physical exam and plan: Yes Notes (Text): This is an addendum to GI progress report dictated by the GI Fellow.The patient was seen and examined earlier. Medical records, lab studies, imagings were reviewed. Last 24 hours events reviewed. Agreed with the above treatment plan as outlined in GI Fellow 's notes with the addition of the following Patient was feeling much jacob Tolerating clear liquid diet Abdomen soft nontender Follow-up LFT However for pathology Continue antibiotics advanced Diet only as per surgery discussed marco Martins 08/22/18 18:51
--- NOTE | 2018-08-22 11:49 | PN ---
DATE: 08/22/2018 REASON FOR CONSULTATION AND FOLLOWUP: Cardiac evaluation for possible gallbladder surgery, cholecystitis, status post ERCP. This note is in addition to dictated by our nurse practitioner, Reyna Almazan. 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 No complaints of chest pain, shortness of breath or any palpitation. History of DVT, on Coumadin; it was then held and reversed on admission because of elevated INR. RECOMMENDATIONS: Continue metoprolol, continue amlodipine. If the patient is okay, we will discontinue telemetry. Possible discharge and followup result of biopsy as an outpatient. CVS status is stable. Thank you Dr. Martins for providing us the opportunity in taking care of the patient, Aurea Piña. Ramón Shah MD
[2018-08-22] MEDS: Sodium Chloride 0.9% 1,000 ML IV SCH (12:49)
--- NOTE | 2018-08-22 13:39 | CP.PCM.PCO ---
Physician Communication Note - Physician Communication Note Physician Communication Note: patient is cleared to go to TCU if accepted as per Dr. Martins
--- NOTE | 2018-08-22 14:17 | CP.PCM.PCO ---
Physician Communication Note - Physician Communication Note Physician Communication Note: will wait for Dr. Sharif consult for aspiration of ?abcess prior to transfer
--- NOTE | 2018-08-22 14:36 | CP.PCM.PCO ---
Physician Communication Note - Physician Communication Note Physician Communication Note: awaiting pathology report to determine if patient requires surgery
--- NOTE | 2018-08-22 16:26 | CP.PCM.PCO ---
Physician Communication Note - Physician Communication Note Physician Communication Note: Cholecystitis/Ampullary tumor-?GB Bypass vs cholecystectomy path pending
--- NOTE | 2018-08-22 23:00 | PN ---
DATE: 08/22/2018 SUBJECTIVE: Patient is 83-year-old, seen and examined, doing well. Does not like liquid diet, so she had few sips of juice and broth. Otherwise, no history of nausea, vomiting. Abdominal pain has significantly improved. PHYSICAL EXAMINATION VITAL SIGNS: She is afebrile, pulse 75, respirations 18, blood pressure 130/70. LUNGS: Bilateral fair airflow. No rhonchi or crackle. HEART: S1, S2 audible. ABDOMEN: Soft, slight right upper quadrant discomfort. NEUROLOGICAL: Patient is awake, alert, oriented, communicative. LABORATORY EXAMINATION: WBC is 14.5, hemoglobin 10.2, hematocrit 31.3, platelet 582,000. PT 15.0, INR 1.30. Chemistry: Sodium 135, potassium 4.0, chloride 103, CO2 of 23, BUN 12, creatinine 1.1, blood sugar of 253. Her urine is growing Klebsiella organism. Blood cultures are negative. ASSESSMENT: 1. Ampullary tumor, pending biopsy report. 2. Cholecystitis. 3. Amf-uvccyca-tacbssmrk diabetes. 4. Hypertension. 5. Duodenitis. 6. Short-segment Gonzalez's esophagus. PLAN: Currently, surgery is on hold. We will continue on IV fluid. Continue on IV antibiotic, Flagyl every 8, 500 mg. Her blood sugar is being monitored. She is on meropenem. She is on IV fluid. She is on liquid diet. Awaiting biopsy report, and we will monitor her labs including H and H, WBC count and her LFTs, and we will follow up patient in a.m. Cindy Martins MD
[2018-08-22] MEDS ORDERED: DiphenhydrAMINE 50 mg/ml Inj IVP STA (23:30)
[2018-08-23 03:08] LABS: URINE BILIRUBIN NEGATIVE (NEGATIVE); URINE BLOOD NEGATIVE (NEGATIVE); URINE GLUCOSE (UA) >=1000 mg/dL (NEGATIVE); URINE LEUKOCYTE ESTERASE NEGATIVE Leu/uL (NEGATIVE); URINE PROTEIN 100 mg/dL (<30 mg/dL); URINE UROBILINOGEN 0.2 E.U./dL (<1 E.U./dL)
[2018-08-23 03:18] LABS: URINE APPEARANCE CLEAR (CLEAR); URINE COLOR YELLOW (YELLOW)
[2018-08-23 03:43] LABS: URINE BACTERIA MANY (NEG); URINE WBC 20 - 25 /hpf (0-6)
[2018-08-23] MEDS: metroNIDAZOLE IV 500 mg/100 ml 500 MG/100 ML BAG IVPB SCH (05:14)
--- NOTE | 2018-08-23 07:20 | CP.PCM.PN ---
Subjective - Date & Time of Evaluation Date of Evaluation: 08/23/18 Time of Evaluation: 07:16 - Subjective Subjective: Surgery: Dr. Hopkins Patient feeling great today. She reports bowel movement. She is asking for more food and tolerating liquid diet. She denies abdominal pain, n/v/f/c. Objective - Vital Signs/Intake and Output Vital Signs (last 24 hours): Temp Pulse Resp BP Pulse Ox 98.6 F 113 H 18 142/85 99 08/23/18 05:38 08/23/18 05:38 08/23/18 05:38 08/23/18 05:38 08/23/18 05:38 Intake and Output: 08/23/18 08/23/18 06:59 18:59 Intake Total 720 Output Total 300 Balance 420 - Medications Medications: Current Medications Amlodipine Besylate (Norvasc) 10 mg PO DAILY [facility] Last Admin: 08/22/18 09:25 Dose: 10 mg Meropenem (Merrem Iv 1 Gm Premix) 1 gm in 50 mls @ 100 mls/hr IVPB Q12 [facility]; Protocol Stop: 08/27/18 22:01 Last Admin: 08/22/18 21:56 Dose: 100 mls/hr Metronidazole (Flagyl) 500 mg in 100 mls @ 100 mls/hr IVPB Q8 [facility]; Protocol Last Admin: 08/23/18 05:14 Dose: 100 mls/hr Sodium Chloride (Sodium Chloride 0.9%) 1,000 mls @ 10 mls/hr IV .Q24H [facility] Last Admin: 08/22/18 12:49 Dose: Not Given Insulin Human Lispro (Humalog Med) 0 units SC ACHS [facility]; Protocol Last Admin: 08/22/18 21:56 Dose: 4 unit Levothyroxine Sodium (Synthroid) 125 mcg PO ACB [facility] Last Admin: 08/22/18 08:25 Dose: 125 mcg Metoprolol Tartrate (Lopressor) 100 mg PO BID [facility] Last Admin: 08/22/18 17:24 Dose: 100 mg Ondansetron HCl (Zofran Inj) 4 mg IVP Q6H PRN PRN Reason: Nausea/Vomiting Pantoprazole Sodium (Protonix Inj) 40 mg IVP DAILY [facility] Last Admin: 08/22/18 09:24 Dose: 40 mg - Labs Labs: 08/22/18 06:30 08/22/18 06:30 PT 15.0 SECONDS (9.4-12.5) H 08/21/18 06:30 INR 1.30 08/21/18 06:30 APTT 42.4 Seconds (25.1-36.5) H 08/21/18 06:30 - Constitutional Appears: Non-toxic, No Acute Distress - Head Exam Head Exam: ATRAUMATIC, NORMOCEPHALIC - Eye Exam Eye Exam: EOMI - ENT Exam ENT Exam: Mucous Membranes Moist - Respiratory Exam Respiratory Exam: NORMAL BREATHING PATTERN. absent: Respiratory Distress - Cardiovascular Exam Cardiovascular Exam: REGULAR RHYTHM. absent: Tachycardia - GI/Abdominal Exam GI & Abdominal Exam: Soft. absent: Distended, Guarding, Rigid, Tenderness, Rebound - Neurological Exam Neurological Exam: Alert, Awake - Psychiatric Exam Psychiatric exam: Normal Affect, Normal Mood - Skin Skin Exam: Dry, Normal Color, Warm Assessment and Plan - Assessment and Plan (Free Text) Assessment: 83y/o female w/ choledocholithiasis, ampullary mass s/p ERCP and biopsy and cholecystitis-clinically improved Plan: -diet per Dr. Hopkins, cont clear liquids -f/u labs -f/u pathology, pending path determines surgical recs -OOB -f/u stool culture s -further care per primary AKWhite PGY4
[2018-08-23 07:40] LABS: BASO # 0.02 K/mm3 (0.0-2.0); BASO % 0.2 % (0.0-3.0); EOS # 0.2 (0.0-0.7); GRAN # 7.36 (1.4-6.5); GRAN % 77.9 % (50.0-68.0); HEMOGLOBIN 9.6 g/dL (12.0-16.0); LYMPH % 10.1 % (22.0-35.0); MEAN CELL VOLUME 93.1 fl (80.0-105.0); MEAN CORPUSCULAR HEMOGLOBIN 29.9 pg (25.0-35.0); MEAN CORPUSCULAR HGB CONC 32.1 g/dl (31.0-37.0); MEAN PLATELET VOLUME 9.5 fl (7.0-11.0); MONO # 0.9 (0.1-0.6); MONO % 9.8 % (1.0-6.0); RBC 3.21 10^6/uL (3.5-6.1); RED CELL DISTRIBUTION WIDTH 13.6 % (11.5-14.5); WHITE BLOOD COUNT 9.5 10^3/uL (4.5-11.0)
[2018-08-23] MEDS: Insulin Lispro (humaLOG) MEDIUM Coverage SC SCH ×4 (07:54→21:42)
[2018-08-23] MEDS: Levothyroxine 125 MCG TAB PO SCH (07:54)
[2018-08-23 08:00] LABS: ALB/GLOB RATIO 0.8 (1.1-1.8); ALBUMIN 2.6 g/dL (3.0-4.8); CALCIUM 8.1 mg/dL (8.4-10.5)
--- NOTE | 2018-08-23 08:00 | PN ---
DATE: 08/23/2018 SUBJECTIVE: The patient is in bed in no acute distress, nontoxic. No fevers. PHYSICAL EXAMINATION: VITAL SIGNS: Temperature is 98, blood pressure is 140/80, respiratory rate of 18. HEENT: Unremarkable. NECK: Supple. LUNGS: Decreased breath sounds. HEART: Normal S1 and S2. ABDOMEN: Soft. LABORATORY EXAMINATION: White count of 14,500, hemoglobin of 10, platelets of 582. Coagulation is noted. Chemistries reveal a BUN of 12, creatinine of 1.1. Chemistries are noted. Urinalysis is noted. Urine culture is Klebsiella ozaenae. Blood cultures are negative. ASSESSMENT AND PLAN: This is an 83-year-old female who is admitted with atrial fibrillation, history of deep vein thrombosis, on Coumadin, hypothyroidism, hypertension, diabetes, admitted with abdominal pain and diarrhea, found to have supratherapeutic INR and sepsis in the setting of subcapsular fluid collection, concerned about hematoma versus liver abscess and had a positive HIDA scan, had an ERCP and lithotripsy, sphincterotomy and balloon extraction, insertion of the stent and lymph node biopsy. The patient with sepsis with acute cholecystitis, bile duct stones, on meropenem, with a Gram-negative nimesh in the urine. Waiting for Dr. Roosevelt Sharif's input regarding CAT scan findings and this liver subcapsular collection and possible IR-directed aspiration. The patient with an ampullary tumor and awaiting for biopsy. Maybe able to disconnect the Flagyl since meropenem is adequate, Flagyl, anaerobic therapy. The patient is allergic to penicillin. Shaun Hassan MD
[2018-08-23] MEDS: Meropenem IV 1 gm in NS 1 GM/50 ML BAG IVPB SCH ×2 (09:39→21:51)
--- NOTE | 2018-08-23 10:09 | CP.PCM.PCO ---
Physician Communication Note - Physician Communication Note Physician Communication Note: full liquid diet-IF clarice low fat tonight
--- NOTE | 2018-08-23 10:33 | CP.PCM.PN ---
<Alessio Abdi - Last Filed: 08/23/18 10:55> Subjective - Date & Time of Evaluation Date of Evaluation: 08/23/18 Time of Evaluation: 10:31 - Subjective Subjective: Aurea is doing well today. No abdominal pain. She is tolerating diet. She had BM today, nurse reports watery, sent for c.diff. Objective - Vital Signs/Intake and Output Vital Signs (last 24 hours): Temp Pulse Resp BP Pulse Ox 98.6 F 99 H 18 140/83 99 08/23/18 05:38 08/23/18 09:39 08/23/18 05:38 08/23/18 09:39 08/23/18 05:38 Intake and Output: 08/23/18 08/23/18 06:59 18:59 Intake Total 720 Output Total 300 Balance 420 - Medications Medications: Current Medications Amlodipine Besylate (Norvasc) 10 mg PO DAILY [facility] Last Admin: 08/23/18 09:39 Dose: 10 mg Meropenem (Merrem Iv 1 Gm Premix) 1 gm in 50 mls @ 100 mls/hr IVPB Q12 [facility]; Protocol Stop: 08/27/18 22:01 Last Admin: 08/23/18 09:39 Dose: 100 mls/hr Sodium Chloride (Sodium Chloride 0.9%) 1,000 mls @ 10 mls/hr IV .Q24H [facility] Last Admin: 08/22/18 12:49 Dose: Not Given Insulin Human Lispro (Humalog Med) 0 units SC ACHS [facility]; Protocol Last Admin: 08/23/18 07:54 Dose: 3 units Levothyroxine Sodium (Synthroid) 125 mcg PO ACB [facility] Last Admin: 08/23/18 07:54 Dose: 125 mcg Metoprolol Tartrate (Lopressor) 100 mg PO BID [facility] Last Admin: 08/23/18 09:39 Dose: 100 mg Ondansetron HCl (Zofran Inj) 4 mg IVP Q6H PRN PRN Reason: Nausea/Vomiting Pantoprazole Sodium (Protonix Inj) 40 mg IVP DAILY [facility] Last Admin: 08/23/18 09:40 Dose: 40 mg - Labs Labs: 08/23/18 07:00 08/23/18 07:00 PT 15.0 SECONDS (9.4-12.5) H 08/21/18 06:30 INR 1.30 08/21/18 06:30 APTT 42.4 Seconds (25.1-36.5) H 08/21/18 06:30 - Constitutional Appears: Non-toxic, No Acute Distress - Head Exam Head Exam: NORMAL INSPECTION - Eye Exam Eye Exam: EOMI, Normal appearance - ENT Exam ENT Exam: Mucous Membranes Moist - Respiratory Exam Respiratory Exam: Clear to Ausculation Bilateral, NORMAL BREATHING PATTERN - Cardiovascular Exam Cardiovascular Exam: REGULAR RHYTHM, +S1, +S2 - GI/Abdominal Exam GI & Abdominal Exam: Soft, Normal Bowel Sounds. absent: Tenderness - Extremities Exam Extremities Exam: Normal Inspection - Neurological Exam Neurological Exam: Alert, Awake, Oriented x3 - Psychiatric Exam Psychiatric exam: Normal Affect, Normal Mood - Skin Skin Exam: Dry, Normal Color Assessment and Plan - Assessment and Plan (Free Text) Assessment: 83 year old female with PMH of Afib, DVT, (on Coumadin), Hypothyroidism, HTN, and Diabetes presenting with abdominal pain, vomiting, and diarrhea. Active treatment of supratherapeutic INR and sepsis in setting of a 11.5x4.2x8.2 hepatic subcapsular fluid collection concerning for hematoma versus abscess and distended gallbladder with mild wall thickening concerning for possible calculous cholecystitis. Plan: -Continue antibiotics per ID -CT abd/pelv shows 2 large hypodense liver lesions - in setting of elevated INR, likely hemorrhagic. -MRI/MRCP with CBD stones. -s/p ERCP 08/20/18 - 10x7 Plastic stent placed. Will need to be removed in 4- 6wks. -Ampullary lesion seen and biopsy. F/U biopsy results. -pending stool infectious workup -pending E. histolytica and pancultures -defer further diet to surgical team. -supportive care- IVFs, anti-emetics, pain control -Follow surgical recommendations regarding cholecystitis <Miladis,Kovil V - Last Filed: 08/23/18 23:51> Objective - Vital Signs/Intake and Output Vital Signs (last 24 hours): Temp Pulse Resp BP Pulse Ox 99.3 F 80 18 132/69 98 08/23/18 17:20 08/23/18 17:20 08/23/18 17:20 08/23/18 17:20 08/23/18 17:20 Intake and Output: 08/23/18 08/24/18 18:59 06:59 Intake Total 50 360 Output Total 850 Balance 50 -490 - Medications Medications: Current Medications Amlodipine Besylate (Norvasc) 10 mg PO DAILY [facility] Last Admin: 08/23/18 09:39 Dose: 10 mg Meropenem (Merrem Iv 1 Gm Premix) 1 gm in 50 mls @ 100 mls/hr IVPB Q12 [facility]; Protocol Stop: 08/27/18 22:01 Last Admin: 08/23/18 21:51 Dose: 100 mls/hr Sodium Chloride (Sodium Chloride 0.9%) 1,000 mls @ 10 mls/hr IV .Q24H [facility] Last Admin: 08/23/18 12:45 Dose: Not Given Insulin Detemir (Levemir) 10 unit SC HS [facility] Last Admin: 08/23/18 21:52 Dose: 10 unit Insulin Human Lispro (Humalog Med) 0 units SC ACHS [facility]; Protocol Last Admin: 08/23/18 21:42 Dose: Not Given Levothyroxine Sodium (Synthroid) 125 mcg PO ACB [facility] Last Admin: 08/23/18 07:54 Dose: 125 mcg Metoprolol Tartrate (Lopressor) 100 mg PO BID [facility] Last Admin: 08/23/18 17:10 Dose: 100 mg Ondansetron HCl (Zofran Inj) 4 mg IVP Q6H PRN PRN Reason: Nausea/Vomiting Pantoprazole Sodium (Protonix Inj) 40 mg IVP DAILY [facility] Last Admin: 08/23/18 09:40 Dose: 40 mg - Labs Labs: 08/23/18 07:00 08/23/18 07:00 PT 15.0 SECONDS (9.4-12.5) H 08/21/18 06:30 INR 1.30 08/21/18 06:30 APTT 42.4 Seconds (25.1-36.5) H 08/21/18 06:30 Attending/Attestation - Attestation I have personally seen and examined this patient.: Yes I have fully participated in the care of the patient.: Yes I have reviewed all pertinent clinical information, including history, physical exam and plan: Yes Notes (Text): This is an addendum to GI progress report dictated by the GI Fellow.The patient was seen and examined earlier. Medical records, lab studies, imagings were reviewed. Last 24 hours events reviewed. Agreed with the above treatment plan as outlined in GI Fellow 's notes with the addition of the following 08/23/18 23:51
[2018-08-23] MEDS: Sodium Chloride 0.9% 1,000 ML IV SCH (12:45)
--- NOTE | 2018-08-23 14:44 | PN ---
DATE: 08/23/2018 SUBJECTIVE: Patient seen and examined, lying in bed, seems to be comfortable, not in any distress. Still on clear liquid diet. Complains of no abdominal pain. No diarrhea. PHYSICAL EXAMINATION: VITAL SIGNS: Patient is afebrile, pulse 99, respirations 18 and blood pressure 140/83. LUNGS: Bilateral fair air flow, no crackle. HEART: S1 and S2 audible. ABDOMEN: Soft, nontender, no rebound, no guarding. NEUROLOGIC: She is awake, alert, oriented, communicative. LABORATORY EXAM: Urine positive for Klebsiella ozaenae. She had ERCP done, biopsy taken from ampullary growth. ASSESSMENT: 1. Cholecystitis and cholelithiasis. 2. 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 3. History of deep venous thrombosis. 4. Hypertension. 5. Non-insulin dependent diabetes. PLAN: Her diet is being advanced to full liquid by dinner. For now she is on meropenem and IV fluid is being tapered down. We will discontinue telemetry. We will make a plan, might not be able to go to TCU because she does have subcapsular fluid collection along the posterior inferior border of the liver that need to be tapped. Once she goes to the TCU that cannot happen, so we will keep her on medical/surgical, discontinue telemetry. She is on SCDs. She is off of Coumadin. We will put her on DVT prophylaxis. Patient was advised on and encouraged ambulation and sitting in the chair most of the time and keep her moving her lower extremity. Cindy Martins MD
[2018-08-23] MEDS: Insulin Detemir 100 units/ml Vial (Levemir) SC SCH (21:52)
[2018-08-24] MEDS: Levothyroxine 125 MCG TAB PO SCH (08:20)
[2018-08-24] MEDS: Insulin Lispro (humaLOG) MEDIUM Coverage SC SCH ×4 (08:20→22:03)
--- NOTE | 2018-08-24 08:48 | CP.PCM.PN ---
Subjective - Date & Time of Evaluation Date of Evaluation: 08/24/18 Time of Evaluation: 08:45 - Subjective Subjective: Surgery- Dr. Hopkins Patient seen and examined at bedside. No new complaints. + bowel movement. Tolerating current solid diet. denies nausea, vomiting. Objective - Vital Signs/Intake and Output Vital Signs (last 24 hours): Temp Pulse Resp BP Pulse Ox 97.8 F 92 H 20 144/81 97 08/24/18 05:49 08/24/18 05:49 08/24/18 05:49 08/24/18 05:49 08/24/18 05:49 Intake and Output: 08/24/18 08/24/18 06:59 18:59 Intake Total 1060 Output Total 2500 Balance -1440 - Medications Medications: Current Medications Amlodipine Besylate (Norvasc) 10 mg PO DAILY [facility] Last Admin: 08/23/18 09:39 Dose: 10 mg Meropenem (Merrem Iv 1 Gm Premix) 1 gm in 50 mls @ 100 mls/hr IVPB Q12 [facility]; Protocol Stop: 08/27/18 22:01 Last Admin: 08/23/18 21:51 Dose: 100 mls/hr Sodium Chloride (Sodium Chloride 0.9%) 1,000 mls @ 10 mls/hr IV .Q24H [facility] Last Admin: 08/23/18 12:45 Dose: Not Given Insulin Detemir (Levemir) 10 unit SC HS [facility] Last Admin: 08/23/18 21:52 Dose: 10 unit Insulin Human Lispro (Humalog Med) 0 units SC ACHS [facility]; Protocol Last Admin: 08/24/18 08:20 Dose: 1 units Levothyroxine Sodium (Synthroid) 125 mcg PO ACB [facility] Last Admin: 08/24/18 08:20 Dose: 125 mcg Metoprolol Tartrate (Lopressor) 100 mg PO BID [facility] Last Admin: 08/23/18 17:10 Dose: 100 mg Ondansetron HCl (Zofran Inj) 4 mg IVP Q6H PRN PRN Reason: Nausea/Vomiting Pantoprazole Sodium (Protonix Inj) 40 mg IVP DAILY [facility] Last Admin: 08/23/18 09:40 Dose: 40 mg - Labs Labs: 08/23/18 07:00 08/23/18 07:00 PT 15.0 SECONDS (9.4-12.5) H 08/21/18 06:30 INR 1.30 08/21/18 06:30 APTT 42.4 Seconds (25.1-36.5) H 08/21/18 06:30 - Constitutional Appears: Non-toxic, No Acute Distress - Head Exam Head Exam: ATRAUMATIC - Eye Exam Eye Exam: EOMI - ENT Exam ENT Exam: Mucous Membranes Moist - Respiratory Exam Respiratory Exam: NORMAL BREATHING PATTERN. absent: Accessory Muscle Use, Respiratory Distress - Cardiovascular Exam Cardiovascular Exam: +S1, +S2. absent: Bradycardia, Tachycardia - GI/Abdominal Exam GI & Abdominal Exam: Soft, Tenderness (Mild tenderness to deep palpation in RUQ). absent: Distended, Firm, Guarding, Rigid - Neurological Exam Neurological Exam: Alert, Awake, Oriented x3 - Psychiatric Exam Psychiatric exam: Normal Mood - Skin Skin Exam: Dry, Warm Assessment and Plan - Assessment and Plan (Free Text) Assessment: 83F w/ choledocholithiasis, ampullary mass s/p ERCP and biopsy and cholecystitis- clinically improved Plan: -GI/Hepatic Regular diet -Encourage OOB -f/u cultures and Path -further management pending Pathology report -further care per primary team PGY2
--- NOTE | 2018-08-24 09:19 | CP.PCM.PN ---
Subjective - Date & Time of Evaluation Date of Evaluation: 08/24/18 Time of Evaluation: 09:00 - Subjective Subjective: HISTORY OF PRESENT ILLNESS: Ms. Torers is an 83-year-old female, admitted to the hospital with right upper abdominal pain. She has history of DVT in the past, IVC filter placement. Underwent ERCP with sphincterectomy yesterday by Dr. Redding. 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 Cholecystectomy is on hold. Dr. Hopkins following. Denies any abdominal pain. Mild discomfort of her abdomen. Subcapsular fluid collection around liver. Tolerating current diet. FAMILY HISTORY: Noncontributory. No history of cancer in the family. PAST SURGICAL HISTORY: Right hip replacement, IVC filter placement. PAST MEDICAL HISTORY: Atrial fibrillation, DVT, hypothyroidism, hypertension, diabetes mellitus. ALLERGIES: TYLENOL, OXYCODONE, PENICILLIN. CURRENT MEDICATIONS: Meropenem, Flagyl, IV fluid, insulin, levothyroxine, metoprolol 100 mg p.o. b.i.d., Zofran, Protonix. PHYSICAL EXAMINATION: GENERAL: Comfortable in bed, in no acute distress. VITAL SIGNS: reviewed. HEENT: Pallor positive. NECK: No lymphadenopathy. CHEST: Air entry present, equal bilateral. No added sound. CARDIOVASCULAR: S1 and S2 normal. No murmur. No gallop. ABDOMEN: Soft, nontender, nondistended. Mild right upper quadrant discomfort on palpation. EXTREMITY: No edema. ASSISTANT PRINCIPAL: Alert and oriented x3. No focal sensorimotor deficit. LABORATORY DATA: reviewed. MEDICATIONS: Reviewed. 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 2. Atrial fibrillation. 3. History of deep venous thrombosis in the past, status post inferior vena cava filter. 5. Hypothyroidism. 6. Hypertension. PLAN: Path on Biopsy awaited from ampulla of Vater. We will continue insulin for diabetes mellitus, Synthroid 100 mcg p.o. daily. Currently, on IV antibiotics, meropenem. ID following. Zofran 4 mg every 6 hours p.r.n. for nausea, Protonix 40 mg daily. We will continue IV fluid at 60 mL an hour. She has leukocytosis. White count declined from 22,000 to 16,000 Hemoglobin stable at 9.9, anemia, has not required blood transfusion yet. Liver functions within normal limits. CA 19-9 not elevated.. Electrolytes normal. GI, surgery recommendations noted. TCU evaluation for deconditioning. Erendira Dai MD Objective - Vital Signs/Intake and Output Vital Signs (last 24 hours): Temp Pulse Resp BP Pulse Ox 97.8 F 92 H 20 144/81 97 08/24/18 05:49 08/24/18 05:49 08/24/18 05:49 08/24/18 05:49 08/24/18 05:49 Intake and Output: 08/24/18 08/24/18 06:59 18:59 Intake Total 1060 Output Total 2500 Balance -1440 - Medications Medications: Current Medications Amlodipine Besylate (Norvasc) 10 mg PO DAILY [facility] Last Admin: 08/23/18 09:39 Dose: 10 mg Meropenem (Merrem Iv 1 Gm Premix) 1 gm in 50 mls @ 100 mls/hr IVPB Q12 [facility]; Protocol Stop: 08/27/18 22:01 Last Admin: 08/23/18 21:51 Dose: 100 mls/hr Sodium Chloride (Sodium Chloride 0.9%) 1,000 mls @ 10 mls/hr IV .Q24H [facility] Last Admin: 08/23/18 12:45 Dose: Not Given Insulin Detemir (Levemir) 10 unit SC HS [facility] Last Admin: 08/23/18 21:52 Dose: 10 unit Insulin Human Lispro (Humalog Med) 0 units SC ACHS [facility]; Protocol Last Admin: 08/24/18 08:20 Dose: 1 units Levothyroxine Sodium (Synthroid) 125 mcg PO ACB [facility] Last Admin: 08/24/18 08:20 Dose: 125 mcg Metoprolol Tartrate (Lopressor) 100 mg PO BID [facility] Last Admin: 08/23/18 17:10 Dose: 100 mg Ondansetron HCl (Zofran Inj) 4 mg IVP Q6H PRN PRN Reason: Nausea/Vomiting Pantoprazole Sodium (Protonix Inj) 40 mg IVP DAILY [facility] Last Admin: 08/23/18 09:40 Dose: 40 mg - Labs Labs: 08/23/18 07:00 08/23/18 07:00 PT 15.0 SECONDS (9.4-12.5) H 08/21/18 06:30 INR 1.30 08/21/18 06:30 APTT 42.4 Seconds (25.1-36.5) H 08/21/18 06:30
--- NOTE | 2018-08-24 09:20 | CP.PCM.PN ---
<[email or web address] - Last Filed: 08/24/18 09:16> Subjective - Date & Time of Evaluation Date of Evaluation: 08/24/18 Time of Evaluation: 09:16 - Subjective Subjective: Patient is doing well. No complaints. She had solid BM this AM. She is ambulating at times. Tolerating diet. Objective - Vital Signs/Intake and Output Vital Signs (last 24 hours): Temp Pulse Resp BP Pulse Ox 97.8 F 92 H 20 144/81 97 08/24/18 05:49 08/24/18 05:49 08/24/18 05:49 08/24/18 05:49 08/24/18 05:49 Intake and Output: 08/24/18 08/24/18 06:59 18:59 Intake Total 1060 Output Total 2500 Balance -1440 - Medications Medications: Current Medications Amlodipine Besylate (Norvasc) 10 mg PO DAILY [facility] Last Admin: 08/23/18 09:39 Dose: 10 mg Meropenem (Merrem Iv 1 Gm Premix) 1 gm in 50 mls @ 100 mls/hr IVPB Q12 [facility]; Protocol Stop: 08/27/18 22:01 Last Admin: 08/23/18 21:51 Dose: 100 mls/hr Sodium Chloride (Sodium Chloride 0.9%) 1,000 mls @ 10 mls/hr IV .Q24H [facility] Last Admin: 08/23/18 12:45 Dose: Not Given Insulin Detemir (Levemir) 10 unit SC HS [facility] Last Admin: 08/23/18 21:52 Dose: 10 unit Insulin Human Lispro (Humalog Med) 0 units SC ACHS [facility]; Protocol Last Admin: 08/24/18 08:20 Dose: 1 units Levothyroxine Sodium (Synthroid) 125 mcg PO ACB [facility] Last Admin: 08/24/18 08:20 Dose: 125 mcg Metoprolol Tartrate (Lopressor) 100 mg PO BID [facility] Last Admin: 08/23/18 17:10 Dose: 100 mg Ondansetron HCl (Zofran Inj) 4 mg IVP Q6H PRN PRN Reason: Nausea/Vomiting Pantoprazole Sodium (Protonix Inj) 40 mg IVP DAILY [facility] Last Admin: 08/23/18 09:40 Dose: 40 mg - Labs Labs: 08/23/18 07:00 08/23/18 07:00 PT 15.0 SECONDS (9.4-12.5) H 08/21/18 06:30 INR 1.30 08/21/18 06:30 APTT 42.4 Seconds (25.1-36.5) H 08/21/18 06:30 - Constitutional Appears: Non-toxic, No Acute Distress - Head Exam Head Exam: NORMAL INSPECTION, NORMOCEPHALIC - Eye Exam Eye Exam: EOMI, Normal appearance - ENT Exam ENT Exam: Mucous Membranes Moist - Respiratory Exam Respiratory Exam: Clear to Ausculation Bilateral, Rales Additional comments: b/l crackles at lung base - GI/Abdominal Exam GI & Abdominal Exam: Soft, Normal Bowel Sounds. absent: Tenderness - Neurological Exam Neurological Exam: Alert, Awake, Oriented x3 - Psychiatric Exam Psychiatric exam: Normal Affect, Normal Mood - Skin Skin Exam: Dry, Normal Color Assessment and Plan - Assessment and Plan (Free Text) Assessment: 83 year old female with PMH of Afib, DVT, (on Coumadin), Hypothyroidism, HTN, and Diabetes presenting with abdominal pain, vomiting, and diarrhea. Active treatment of supratherapeutic INR and sepsis in setting of a 11.5x4.2x8.2 hepatic subcapsular fluid collection concerning for hematoma versus abscess and distended gallbladder with mild wall thickening concerning for possible calculous cholecystitis. Plan: -Continue antibiotics per ID -CT abd/pelv shows 2 large hypodense subcapsular liver lesions - in setting of elevated INR, likely hemorrhagic. -MRI/MRCP with CBD stones. -s/p ERCP 08/20/18 - 10x7 Plastic stent placed. Will need to be removed in 4- 6wks. -Ampullary lesion seen and biopsy. F/U biopsy results. -pending E. histolytica and pancultures -defer further diet to surgical team. -supportive care- IVFs, anti-emetics, pain control -Follow surgical recommendations regarding cholecystitis -Patient had rales in b/l lung base, notified nursing staff. Patient does take "water Pills" at home. No complaints of SOB at this time. <Courtney Redding V - Last Filed: 08/24/18 23:25> Objective - Vital Signs/Intake and Output Vital Signs (last 24 hours): Temp Pulse Resp BP Pulse Ox 98.4 F 78 18 154/78 H 96 08/24/18 18:00 08/24/18 18:00 08/24/18 18:00 08/24/18 18:00 08/24/18 18:00 Intake and Output: 08/24/18 08/25/18 18:59 06:59 Intake Total 700 Balance 700 - Medications Medications: Current Medications Amlodipine Besylate (Norvasc) 10 mg PO DAILY [facility] Last Admin: 08/24/18 09:49 Dose: 10 mg Heparin Sodium (Porcine) (Heparin) 5,000 units SC Q12 [facility]; Protocol Last Admin: 08/24/18 22:03 Dose: 5,000 units Meropenem (Merrem Iv 1 Gm Premix) 1 gm in 50 mls @ 100 mls/hr IVPB Q12 [facility]; Protocol Stop: 08/27/18 22:01 Last Admin: 08/24/18 22:03 Dose: 100 mls/hr Sodium Chloride (Sodium Chloride 0.9%) 1,000 mls @ 10 mls/hr IV .Q24H [facility] Last Admin: 08/24/18 12:45 Dose: Not Given Insulin Detemir (Levemir) 10 unit SC HS [facility] Last Admin: 08/24/18 22:04 Dose: 10 unit Insulin Human Lispro (Humalog Med) 0 units SC ACHS [facility]; Protocol Last Admin: 08/24/18 22:03 Dose: Not Given Levothyroxine Sodium (Synthroid) 125 mcg PO ACB [facility] Last Admin: 08/24/18 08:20 Dose: 125 mcg Metoprolol Tartrate (Lopressor) 100 mg PO BID [facility] Last Admin: 08/24/18 17:40 Dose: 100 mg Ondansetron HCl (Zofran Inj) 4 mg IVP Q6H PRN PRN Reason: Nausea/Vomiting Pantoprazole Sodium (Protonix Inj) 40 mg IVP DAILY [facility] Last Admin: 08/24/18 09:49 Dose: 40 mg - Labs Labs: 08/23/18 07:00 08/23/18 07:00 PT 15.0 SECONDS (9.4-12.5) H 08/21/18 06:30 INR 1.30 08/21/18 06:30 APTT 42.4 Seconds (25.1-36.5) H 08/21/18 06:30 Attending/Attestation - Attestation I have personally seen and examined this patient.: Yes I have fully participated in the care of the patient.: Yes I have reviewed all pertinent clinical information, including history, physical exam and plan: Yes Notes (Text): This is an addendum to GI progress report dictated by the GI Fellow.The patient was seen and examined earlier. Medical records, lab studies, imagings were reviewed. Last 24 hours events reviewed. Agreed with the above treatment plan as outlined in GI Fellow 's notes with the addition of the following 08/24/18 23:25
[2018-08-24] MEDS: Meropenem IV 1 gm in NS 1 GM/50 ML BAG IVPB SCH ×2 (09:49→22:03)
--- NOTE | 2018-08-24 09:49 | PN ---
DATE: 08/24/2018 PHYSICAL EXAMINATION: VITAL SIGNS: On exam, temperature is 99, blood pressure is 140/80, respiratory rate of 20, heart rate of 94. HEENT: Examination of HEENT is unremarkable. NECK: Supple. LUNGS: Have decreased breath sounds. HEART: Normal S1, S2. ABDOMEN: Soft, nontender. No organomegaly or rebound or guarding or masses. LABORATORY DATA: Laboratory examination reveals a white count is 9.5, hemoglobin of 9 and creatinine is 1.2. Microbiology reveals Klebsiella ozaenae in the urine, paz resistant. Review of orders reveals the patient to be on meropenem which requires renewal, which I will do so. I have renewed meropenem, to be continued. ASSESSMENT AND PLAN: An 83-year-old female who was admitted with atrial fibrillation, history of deep venous thrombosis, hypothyroidism, hypertension, diabetes, admitted with abdominal pain, who was admitted with a supratherapeutic INR, sepsis in face of subcapsular fluid collection on CAT scan. Concerned about hematoma versus liver abscess. The patient with positive HIDA scan and was taken by Gastrointestinal and endoscopic retrograde cholangiopancreatography, lithotripsies, sphincterotomy, sphincterectomy and balloon extraction of stone and insertion of biliary stent and a lymph node biopsy. The pathology is waiting. The patient was admitted with sepsis with acute cholecystitis and bile duct stone with a gram-negative nimesh in the urine, currently on meropenem. Awaiting Dr. Roosevelt Sharif's input about the subcapsular collection since the white count is resolved, less concerned about an abscess, however, we will await for his input and on meropenem. We will make further recommendations once Dr. Roosevelt Sharif giving us his opinion regarding CT findings and possible Interventional Radiology involvement. Shaun Hassan MD
[2018-08-24] MEDS ORDERED: Potassium Chloride 20 mEq ER Tab PO ONE (12:07)
[2018-08-24] MEDS: Sodium Chloride 0.9% 1,000 ML IV SCH (12:45)
[2018-08-24] MEDS: Insulin Detemir 100 units/ml Vial (Levemir) SC SCH (22:04)
--- NOTE | 2018-08-25 06:43 | CP.PCM.PN ---
Subjective - Date & Time of Evaluation Date of Evaluation: 08/25/18 Time of Evaluation: 06:10 - Subjective Subjective: Awake, alert, no distress, denies nausea or vomiting, feels okay Reason for consultation and follow up: Cardiac evaluation and risk s tratification for ERCP, post ERCP. History of Diabetes, hypertension, hypothyroid, DVT (on Coumadin) Seen and examined by me and Dr. Shah Objective - Vital Signs/Intake and Output Vital Signs (last 24 hours): Temp Pulse Resp BP Pulse Ox 97.5 F L 77 18 137/79 95 08/25/18 06:00 08/25/18 06:00 08/25/18 06:00 08/25/18 06:00 08/25/18 06:00 Intake and Output: 08/24/18 08/25/18 18:59 06:59 Intake Total 700 840 Balance 700 840 - Medications Medications: Current Medications Amlodipine Besylate (Norvasc) [address] [facility] Last Admin: 08/24/18 09:49 Dose: 10 mg Heparin Sodium (Porcine) (Heparin) 5,000 units SC Q12 [facility]; Protocol Last Admin: 08/24/18 22:03 Dose: 5,000 units Meropenem (Merrem Iv 1 Gm Premix) 1 gm in 50 mls @ 100 mls/hr IVPB Q12 [facility]; Protocol Stop: 08/27/18 22:01 Last Admin: 08/24/18 22:03 Dose: 100 mls/hr Sodium Chloride (Sodium Chloride 0.9%) 1,000 mls @ 10 mls/hr IV .Q24H [facility] Last Admin: 08/24/18 12:45 Dose: Not Given Insulin Detemir (Levemir) 10 unit SC HS [facility] Last Admin: 08/24/18 22:04 Dose: 10 unit Insulin Human Lispro (Humalog Med) 0 units SC ACHS [facility]; Protocol Last Admin: 08/24/18 22:03 Dose: Not Given Levothyroxine Sodium (Synthroid) [address] [facility] Last Admin: 08/24/18 08:20 Dose: 125 mcg Metoprolol Tartrate (Lopressor) [address] [facility] Last Admin: 08/24/18 17:40 Dose: 100 mg Ondansetron HCl (Zofran Inj) 4 mg IVP Q6H PRN PRN Reason: Nausea/Vomiting Pantoprazole Sodium (Protonix Inj) 40 mg IVP DAILY [facility] Last Admin: 08/24/18 09:49 Dose: 40 mg - Labs Labs: 08/23/18 07:00 08/23/18 07:00 PT 15.0 SECONDS (9.4-12.5) H 08/21/18 06:30 INR 1.30 08/21/18 06:30 APTT 42.4 Seconds (25.1-36.5) H 08/21/18 06:30 - Constitutional Appears: Non-toxic, No Acute Distress - Head Exam Head Exam: NORMAL INSPECTION, NORMOCEPHALIC - Eye Exam Eye Exam: Normal appearance Pupil Exam: NORMAL ACCOMODATION - ENT Exam ENT Exam: Mucous Membranes Moist - Respiratory Exam Respiratory Exam: Clear to Ausculation Bilateral, NORMAL BREATHING PATTERN - Cardiovascular Exam Cardiovascular Exam: +S1, +S2 - GI/Abdominal Exam GI & Abdominal Exam: Soft, Normal Bowel Sounds - Extremities Exam Extremities Exam: Full ROM, Normal Capillary Refill - Neurological Exam Neurological Exam: Alert, Awake, Oriented x3 - Psychiatric Exam Psychiatric exam: Normal Affect, Normal Mood - Skin Skin Exam: Dry, Normal Color, Warm Assessment and Plan - Assessment and Plan (Free Text) Assessment: An 83 year old female who came in to the ER due to elevated INR. Patient is on Coumadin for DVT. INR was 12.9 by [facility] thus sent to the ER by PMD. She also complaint of RUQ pain and nausea and vomiting and diarrhea. She had an outpatien t US of the abdomen and showed gallstone. History of Diabetes, hypertension, hypothyroid, DVT. She was given FFP and vitamin K for elevated INR. Repeat INR now is 1.44. Denies chest pain or shortness of breath. Troponin normal. EKG normal sinus rhythm, no ischemia, no ST changes.Chest X ray showed no pulmonary congestion. Last Echo done 07/16/15 showed Normal ventricle, LVEF 55-60%,mild aortic regurgitation, aortic sclerosis vs. mild As,trace mitral regurgitation, mild tricuspid regurgitation. RVSP 42 mmHg. Patient is cleared for surgery with moderate risk. No absolute contraindication. No evidence of myocardial infarction or congestive heart failure. Status post ERCP with CBD stenting, mass at ampulla,biopsy done, awaiting pathology result, delay surgical intervention per General surgery Plan: Denies chest pain or shortness of breath Mass at ampulla, biopsy done, awaiting pathology result prior to surgical intervention per General surgery Cardiac status stable Heart rate controlled Blood pressure controlled On Synthroid 125 mcg daily, Lopressor 100 mg BID,Norvasc 10 mg daily Continue antibiotics as ordered Continue current treatment Continue current medications Hold Coumadin Chart reviewed Will follow up Plan and treatment discussed with Dr. Shah
[2018-08-25 07:03] LABS: ALB/GLOB RATIO 0.7 (1.1-1.8); ALBUMIN 2.8 g/dL (3.0-4.8); CALCIUM 8.6 mg/dL (8.4-10.5)
[2018-08-25 07:08] LABS: BASO # 0.02 K/mm3 (0.0-2.0); BASO % 0.2 % (0.0-3.0); EOS # 0.2 (0.0-0.7); EOS % 1.9 % (1.5-5.0); GRAN # 6.08 (1.4-6.5); GRAN % 68.3 % (50.0-68.0); LYMPH # 1.6 (1.2-3.4); LYMPH % 17.9 % (22.0-35.0); MEAN CELL VOLUME 94.9 fl (80.0-105.0); MEAN CORPUSCULAR HEMOGLOBIN 30.2 pg (25.0-35.0); MEAN CORPUSCULAR HGB CONC 31.8 g/dl (31.0-37.0); MEAN PLATELET VOLUME 9.6 fl (7.0-11.0); MONO % 11.7 % (1.0-6.0); RBC 3.31 10^6/uL (3.5-6.1); RED CELL DISTRIBUTION WIDTH 13.9 % (11.5-14.5); WHITE BLOOD COUNT 8.9 10^3/uL (4.5-11.0)
--- NOTE | 2018-08-25 07:54 | CP.PCM.PN ---
Subjective - Date & Time of Evaluation Date of Evaluation: 08/25/18 Time of Evaluation: 07:50 - Subjective Subjective: General Surgery Dr. Ledesma Pt S&E @bedside. No acute events overnight. Pt sleeping comfortably on rounds. no F/C, N/V, D/C. tolerating diet. Objective - Vital Signs/Intake and Output Vital Signs (last 24 hours): Temp Pulse Resp BP Pulse Ox 97.5 F L 77 18 137/79 95 08/25/18 06:00 08/25/18 06:00 08/25/18 06:00 08/25/18 06:00 08/25/18 06:00 Intake and Output: 08/25/18 08/25/18 06:59 18:59 Intake Total 840 Balance 840 - Medications Medications: Current Medications Amlodipine Besylate (Norvasc) 10 mg PO DAILY [facility] Last Admin: 08/24/18 09:49 Dose: 10 mg Heparin Sodium (Porcine) (Heparin) 5,000 units SC Q12 [facility]; Protocol Last Admin: 08/24/18 22:03 Dose: 5,000 units Meropenem (Merrem Iv 1 Gm Premix) 1 gm in 50 mls @ 100 mls/hr IVPB Q12 [facility]; Protocol Stop: 08/27/18 22:01 Last Admin: 08/24/18 22:03 Dose: 100 mls/hr Sodium Chloride (Sodium Chloride 0.9%) 1,000 mls @ 10 mls/hr IV .Q24H [facility] Last Admin: 08/24/18 12:45 Dose: Not Given Insulin Detemir (Levemir) 10 unit SC HS [facility] Last Admin: 08/24/18 22:04 Dose: 10 unit Insulin Human Lispro (Humalog Med) 0 units SC ACHS [facility]; Protocol Last Admin: 08/24/18 22:03 Dose: Not Given Levothyroxine Sodium (Synthroid) 125 mcg PO ACB [facility] Last Admin: 08/24/18 08:20 Dose: 125 mcg Metoprolol Tartrate (Lopressor) 100 mg PO BID [facility] Last Admin: 08/24/18 17:40 Dose: 100 mg Ondansetron HCl (Zofran Inj) 4 mg IVP Q6H PRN PRN Reason: Nausea/Vomiting Pantoprazole Sodium (Protonix Inj) 40 mg IVP DAILY [facility] Last Admin: 08/24/18 09:49 Dose: 40 mg - Labs Labs: 08/25/18 05:45 08/25/18 05:45 PT 15.0 SECONDS (9.4-12.5) H 08/21/18 06:30 INR 1.30 08/21/18 06:30 APTT 42.4 Seconds (25.1-36.5) H 08/21/18 06:30 Microbiology 08/23/18 02:40 Urine Urine Culture - Final No Growth (<1,000 CFU/ML) 08/20/18 00:00 Urine Urine Culture - Final Klebsiella Ozaenae 08/19/18 13:30 Blood Blood Culture - Final 08/19/18 13:30 Blood Gram Stain - Final NO GROWTH AFTER 5 DAYS TEST NOT PERFORMED 08/19/18 13:20 Blood Blood Culture - Final 08/19/18 13:20 Blood Gram Stain - Final NO GROWTH AFTER 5 DAYS TEST NOT PERFORMED - Constitutional Appears: Non-toxic, No Acute Distress - Head Exam Head Exam: NORMAL INSPECTION - Eye Exam Eye Exam: Normal appearance - ENT Exam ENT Exam: Mucous Membranes Moist - Respiratory Exam Respiratory Exam: NORMAL BREATHING PATTERN. absent: Accessory Muscle Use, Respiratory Distress - Cardiovascular Exam Cardiovascular Exam: REGULAR RHYTHM. absent: Bradycardia, Tachycardia - GI/Abdominal Exam GI & Abdominal Exam: Soft. absent: Distended, Firm, Guarding, Tenderness, Rebound - Extremities Exam Extremities Exam: Normal Inspection - Neurological Exam Neurological Exam: Alert, Awake, Oriented x3 - Psychiatric Exam Psychiatric exam: Normal Affect, Normal Mood - Skin Skin Exam: Dry, Intact, Normal Color, Warm Assessment and Plan - Assessment and Plan (Free Text) Assessment: 83F w/ choledocholithiasis, ampullary mass s/p ERCP and biopsy and cholecystitis- clinically improved Plan: - Continue diet as per GI - Repeat UCx no growth - f/u Pathology --> further management pending report - Encourage OOB to chair/Amb - further care per primary team Pt discussed w/ Dr. Sandeep London DO PGY3
[2018-08-25] MEDS: Levothyroxine 125 MCG TAB PO SCH (08:05)
[2018-08-25] MEDS: Insulin Lispro (humaLOG) MEDIUM Coverage SC SCH ×4 (08:05→22:23)
[2018-08-25] MEDS: Meropenem IV 1 gm in NS 1 GM/50 ML BAG IVPB SCH ×2 (09:58→22:32)
--- NOTE | 2018-08-25 10:08 | CP.PCM.PN ---
<KrisSheila - Last Filed: 08/25/18 10:04> Subjective - Date & Time of Evaluation Date of Evaluation: 08/25/18 Time of Evaluation: 10:05 - Subjective Subjective: Gastroenterology Fellow/PGY6 Progress Note Patient resting comfortably. Tolerating diet. Denies abdominal pain. Admits to daily bowel movement. A 12-point review of systems negative except for as above. Objective - Vital Signs/Intake and Output Vital Signs (last 24 hours): Temp Pulse Resp BP Pulse Ox 97.5 F L 76 18 142/79 95 08/25/18 06:00 08/25/18 09:57 08/25/18 06:00 08/25/18 09:58 08/25/18 06:00 Intake and Output: 08/25/18 08/25/18 06:59 18:59 Intake Total 840 Balance 840 - Medications Medications: Current Medications Amlodipine Besylate (Norvasc) 10 mg PO DAILY [facility] Last Admin: 08/25/18 09:58 Dose: 10 mg Heparin Sodium (Porcine) (Heparin) 5,000 units SC Q12 [facility]; Protocol Last Admin: 08/25/18 09:57 Dose: 5,000 units Meropenem (Merrem Iv 1 Gm Premix) 1 gm in 50 mls @ 100 mls/hr IVPB Q12 [facility]; Protocol Stop: 08/27/18 22:01 Last Admin: 08/25/18 09:58 Dose: 100 mls/hr Sodium Chloride (Sodium Chloride 0.9%) 1,000 mls @ 10 mls/hr IV .Q24H [facility] Last Admin: 08/24/18 12:45 Dose: Not Given Insulin Detemir (Levemir) 10 unit SC HS [facility] Last Admin: 08/24/18 22:04 Dose: 10 unit Insulin Human Lispro (Humalog Med) 0 units SC ACHS [facility]; Protocol Last Admin: 08/25/18 08:05 Dose: 3 units Levothyroxine Sodium (Synthroid) 125 mcg PO ACB [facility] Last Admin: 08/25/18 08:05 Dose: 125 mcg Metoprolol Tartrate (Lopressor) 100 mg PO BID [facility] Last Admin: 08/25/18 09:57 Dose: 100 mg Ondansetron HCl (Zofran Inj) 4 mg IVP Q6H PRN PRN Reason: Nausea/Vomiting Pantoprazole Sodium (Protonix Inj) 40 mg IVP DAILY [facility] Last Admin: 08/25/18 09:58 Dose: 40 mg - Labs Labs: 08/25/18 05:45 08/25/18 05:45 PT 15.0 SECONDS (9.4-12.5) H 08/21/18 06:30 INR 1.30 08/21/18 06:30 APTT 42.4 Seconds (25.1-36.5) H 08/21/18 06:30 - Constitutional Appears: Non-toxic, No Acute Distress - Head Exam Head Exam: ATRAUMATIC, NORMOCEPHALIC - Eye Exam Eye Exam: EOMI, PERRL. absent: Scleral icterus Pupil Exam: PERRL. absent: Miosis, Mydriatic - ENT Exam ENT Exam: Mucous Membranes Moist, Normal Oropharynx - Neck Exam Neck Exam: Full ROM, Normal Inspection - Respiratory Exam Respiratory Exam: Clear to Ausculation Bilateral. absent: Rales, Rhonchi, Wheezes - Cardiovascular Exam Cardiovascular Exam: RRR, +S1, +S2. absent: Gallop, Rubs - GI/Abdominal Exam GI & Abdominal Exam: Soft, Normal Bowel Sounds. absent: Distended, Firm, Guarding, Rigid, Tenderness, Organomegaly, Rebound - Extremities Exam Extremities Exam: Normal Inspection. absent: Pedal Edema - Neurological Exam Neurological Exam: Alert, Awake - Psychiatric Exam Psychiatric exam: Normal Affect, Normal Mood - Skin Skin Exam: Dry, Intact, Normal Color, Warm Assessment and Plan - Assessment and Plan (Free Text) Assessment: 83 year old female with PMH of Afib, DVT, (on Coumadin), Hypothyroidism, HTN, and Diabetes presenting with abdominal pain, vomiting, and diarrhea. Active treatment of sepsis 2/2 cholangitis/choledocholithiasis POD5 (08/20) ERCP with sphincterotomy/balloon sweep/stone extraction with [id number] plastic stent placement, 11.5 x 4.2 x 8.2cm hepatic subcapsular fluid collection, likely hemorrhagic in setting of supratherapeutic INR on admission. Plan: -on Merrem day 7 -resolved cholangitis with stent biliary drainage in place -recommend completion of up to ten day antibiotic course for cholangitis -ID managing- follow up recommendations -follow up ampulla biopsy pathology -surgery managing- follow up recommendations -tolerating low fat diet -will require outpatient repeat ERCP for biliary stent removal -will follow clinical course <Courtney Redding V - Last Filed: 08/25/18 23:34> Objective - Vital Signs/Intake and Output Vital Signs (last 24 hours): Temp Pulse Resp BP Pulse Ox 97.9 F 81 20 139/70 95 08/25/18 17:47 08/25/18 18:58 08/25/18 17:47 08/25/18 18:58 08/25/18 06:00 Intake and Output: 08/25/18 08/26/18 18:59 06:59 Intake Total 810 Balance 810 - Medications Medications: Current Medications Amlodipine Besylate (Norvasc) 10 mg PO DAILY [facility] Last Admin: 08/25/18 09:58 Dose: 10 mg Heparin Sodium (Porcine) (Heparin) 5,000 units SC Q12 [facility]; Protocol Last Admin: 08/25/18 22:29 Dose: 5,000 units Meropenem (Merrem Iv 1 Gm Premix) 1 gm in 50 mls @ 100 mls/hr IVPB Q12 [facility]; Protocol Stop: 08/27/18 22:01 Last Admin: 08/25/18 22:32 Dose: 100 mls/hr Sodium Chloride (Sodium Chloride 0.9%) 1,000 mls @ 10 mls/hr IV .Q24H [facility] Last Admin: 08/25/18 19:02 Dose: 10 mls/hr Insulin Detemir (Levemir) 10 unit SC HS [facility] Last Admin: 08/25/18 22:31 Dose: 10 unit Insulin Human Lispro (Humalog Med) 0 units SC ACHS [facility]; Protocol Last Admin: 08/25/18 22:23 Dose: Not Given Levothyroxine Sodium (Synthroid) 125 mcg PO ACB [facility] Last Admin: 08/25/18 08:05 Dose: 125 mcg Metoprolol Tartrate (Lopressor) 100 mg PO BID [facility] Last Admin: 08/25/18 18:58 Dose: 100 mg Ondansetron HCl (Zofran Inj) 4 mg IVP Q6H PRN PRN Reason: Nausea/Vomiting Pantoprazole Sodium (Protonix Inj) 40 mg IVP DAILY [facility] Last Admin: 08/25/18 09:58 Dose: 40 mg - Labs Labs: 08/25/18 05:45 08/25/18 05:45 PT 15.0 SECONDS (9.4-12.5) H 08/21/18 06:30 INR 1.30 08/21/18 06:30 APTT 42.4 Seconds (25.1-36.5) H 08/21/18 06:30 Attending/Attestation - Attestation I have personally seen and examined this patient.: Yes I have fully participated in the care of the patient.: Yes I have reviewed all pertinent clinical information, including history, physical exam and plan: Yes Notes (Text): This is an addendum to GI progress report dictated by the GI Fellow.The patient was seen and examined earlier. Medical records, lab studies, imagings were reviewed. Last 24 hours events reviewed. Agreed with the above treatment plan as outlined in GI Fellow 's notes with the addition of the following 08/25/18 23:34
[2018-08-25] MEDS: Sodium Chloride 0.9% 1,000 ML IV SCH ×3 (12:45→19:02)
--- NOTE | 2018-08-25 13:23 | CP.PCM.PN ---
Subjective - Date & Time of Evaluation Date of Evaluation: 08/25/18 Time of Evaluation: 10:05 - Subjective Subjective: No fevers, not in distress, no nausea, no diarrhea. Objective - Vital Signs/Intake and Output Vital Signs (last 24 hours): Temp Pulse Resp BP Pulse Ox 97.5 F L 76 18 142/79 95 08/25/18 06:00 08/25/18 09:57 08/25/18 06:00 08/25/18 09:58 08/25/18 06:00 Intake and Output: 08/25/18 08/25/18 06:59 18:59 Intake Total 840 Balance 840 - Medications Medications: Current Medications Amlodipine Besylate (Norvasc) 10 mg PO DAILY [facility] Last Admin: 08/25/18 09:58 Dose: 10 mg Heparin Sodium (Porcine) (Heparin) 5,000 units SC Q12 [facility]; Protocol Last Admin: 08/25/18 09:57 Dose: 5,000 units Meropenem (Merrem Iv 1 Gm Premix) 1 gm in 50 mls @ 100 mls/hr IVPB Q12 [facility]; Protocol Stop: 08/27/18 22:01 Last Admin: 08/25/18 09:58 Dose: 100 mls/hr Sodium Chloride (Sodium Chloride 0.9%) 1,000 mls @ 10 mls/hr IV .Q24H [facility] Last Admin: 08/24/18 12:45 Dose: Not Given Insulin Detemir (Levemir) 10 unit SC HS [facility] Last Admin: 08/24/18 22:04 Dose: 10 unit Insulin Human Lispro (Humalog Med) 0 units SC ACHS [facility]; Protocol Last Admin: 08/25/18 12:44 Dose: 3 units Levothyroxine Sodium (Synthroid) 125 mcg PO ACB [facility] Last Admin: 08/25/18 08:05 Dose: 125 mcg Metoprolol Tartrate (Lopressor) 100 mg PO BID [facility] Last Admin: 08/25/18 09:57 Dose: 100 mg Ondansetron HCl (Zofran Inj) 4 mg IVP Q6H PRN PRN Reason: Nausea/Vomiting Pantoprazole Sodium (Protonix Inj) 40 mg IVP DAILY [facility] Last Admin: 08/25/18 09:58 Dose: 40 mg - Labs Labs: 08/25/18 05:45 08/25/18 05:45 PT 15.0 SECONDS (9.4-12.5) H 08/21/18 06:30 INR 1.30 08/21/18 06:30 APTT 42.4 Seconds (25.1-36.5) H 08/21/18 06:30 - Constitutional Appears: Chronically Ill - Head Exam Head Exam: NORMAL INSPECTION - Respiratory Exam Respiratory Exam: Decreased Breath Sounds - Cardiovascular Exam Cardiovascular Exam: +S1, +S2 - GI/Abdominal Exam GI & Abdominal Exam: Soft. absent: Tenderness Assessment and Plan - Assessment and Plan (Free Text) Plan: Assessment sepsis due to acute cholecystitis S/P ERCP, sphincterotomy, lithotripsy, biliary stent placement subscapsular fluid collection, hematoma versus abscess atrial fibrillation history of DVT hypothyroidism HTN DM Plan continue Merrem pending plan for drainage of the subcapsular fluid, and cultures of the fluid if it is drained will monitor clinically
--- NOTE | 2018-08-25 15:45 | PN ---
DATE: 08/25/2018 REASON FOR CONSULTATION AND FOLLOWUP: Preop evaluation and postop follow up for cholecystitis status post ERCP, diabetes, hypertension, hyperlipidemia, history of DVT on Coumadin. SUBJECTIVE: The patient denies any chest pain, shortness of breath or any palpitations. This note is in addition to dictated by our nurse practitioner Reyna Almazan. The patient is starting food and awaiting for biopsy for ampulla derived cancer. The patient had echocardiogram on 07/16/2000, ejection fraction 50 to 60%, mild aortic regurgitation, mild aortic sclerosis, mild EF. Should the patient need intervention, we will get another echo to assess LV function. Thank you Dr. Martins for providing us the opportunity in taking care of the patient. Ramón Shah MD
--- NOTE | 2018-08-25 15:50 | CARD ---
APPROVED REPORT Date of service: 08/25/2018 EXAM: Two-dimensional and M-mode echocardiogram with Doppler and color Doppler. INDICATION Pre-Op 2D DIMENSIONS Left Atrium (2D)3.6 (1.6-4.0cm)IVSd1.1 (0.7-1.1cm) LVDd3.9 (3.9-5.9cm)LVOT Diameter1.9 (1.8-2.4cm) PWd1.1 (0.7-1.1cm)LVDs2.8 (2.5-4.0cm) FS (%) 28.7 %LVEF (%)55.9 (>50%) M-Mode DIMENSIONS Aortic Root2.60 (2.2-3.7cm)Aortic Cusp Exc.1.50 (1.5-2.0cm) Aortic Valve AoV Peak Qshxlcoz120.0cm/Christi Peak GR.9mmHg Mitral Valve MV E Kylfubmz09.6cm/sMV A Imwcrvbx940.0cm/sE/A ratio0.7 TDI E/Lateral E'0.0E/Medial E'0.0 Tricuspid Valve TR Peak Ehendfjk435ij/sRAP ENKBRNEZ42ibRnSM Peak Gr.17mmHg [id number] LEFT VENTRICLE The left ventricle is normal size. There is normal left ventricular wall thickness. The left ventricular function is normal.AEF-55% There is normal LV segmental wall motion. Transmitral Doppler flow pattern is Grade III-reversible restrictive diastolic dysfunction. No left ventricle thrombus noted on this study. There is no ventricular septal defect visualized. There is no left ventricular aneurysm. There is no mass noted in the left ventricle. RIGHT VENTRICLE The right ventricle is normal size. There is normal right ventricular wall thickness. The right ventricular systolic function is normal. ATRIA The left atrium size is normal. The right atrium size is normal. The interatrial septum is intact with no evidence for an atrial septal defect. AORTIC VALVE The aortic valve is moderately sclerotic. There is mild aortic regurgitation. Aortic Sclerosis vs Mild There is no aortic valvular vegetation. MITRAL VALVE The mitral valve is thickened but opens well. Mitral regurgitation is mild to moderate. ( more towards Mild) There is no mitral valve stenosis. There is no evidence of mitral valve prolapse. TRICUSPID VALVE The tricuspid valve leaflets are thickened , but open well. There is mild tricuspid regurgitation.RVSP-27 mm of Hg. There is no tricuspid valve stenosis. There is no tricuspid valve prolapse or vegetation. PULMONIC VALVE The pulmonary valve is normal in structure. There is no pulmonic valvular regurgitation. There is no pulmonic valvular stenosis. GREAT VESSELS The aortic root is normal in size. The ascending aorta is normal in size. The pulmonary artery is normal. The IVC is normal in size and collapses >50% with inspiration. PERICARDIAL EFFUSION There is no pleural effusion. There is no pericardial effusion. <Conclusion> Normal Chamber Size, EF-55% There is mild aortic regurgitation. Mitral regurgitation is mild to moderate. ( more towards Mild) There is mild tricuspid regurgitation.RVSP-27 mm of Hg. The IVC is normal in size and collapses >50% with inspiration. There is no pericardial effusion. No vegetation or thrombus noted.
[2018-08-25] MEDS: Insulin Detemir 100 units/ml Vial (Levemir) SC SCH (22:31)
--- NOTE | 2018-08-25 23:21 | PN ---
DATE: 08/25/2018 SUBJECTIVE: The patient is 83 years old, seen and examined, lying in bed, seems to be comfortable. Denies any nausea or vomiting, eating and tolerating. No abdominal pain. No fever. No chills. PHYSICAL EXAMINATION: VITAL SIGNS: She is afebrile, pulse 75, respirations 20, and blood pressure 136/67. LUNGS: Bilateral fair air flow. No rhonchi or crackle. HEART: S1 and S2 audible. ABDOMEN: Soft and nontender. No rebound. No guarding. EXTREMITIES: Bilateral legs, no edema. NEUROLOGIC: The patient is awake, alert, oriented, and communicative. Moves all extremities. LABORATORY DATA: WBC 8.9, hemoglobin 10.6, hematocrit 31.4, and platelet of 543,000. Chemistry: Sodium 135, potassium 4.7, chloride 105, CO2 24, BUN 13, creatinine 1.2, and blood sugar of 282. She had echocardiogram done that shows mild aortic regurg, ejection fraction is 55%, mild tricuspid regurg. No vegetation noted. ASSESSMENT AND PLAN: 1. Resolved cholangitis. 2. History of deep venous thrombosis. 3. Cholelithiasis. 4. Her anticoagulation is on hold. 5. Status post endoscopic retrograde cholangiopancreatography and biopsy of ampullary growth. PLAN: The patient is currently on meropenem. Cholangitis has resolved. She needs another 3 days of antibiotics. Plan was to tap the fluid collection under hepatic capsule. We will follow up pathology report and will discuss with the surgeon. Cindy Martins MD
--- NOTE | 2018-08-26 05:57 | CP.PCM.PN ---
Subjective - Date & Time of Evaluation Date of Evaluation: 08/26/18 Time of Evaluation: 06:20 - Subjective Subjective: Lying in bed, sleeping but easily awaken, no distress Reason for consultation and follow up: Cardiac evaluation and risk stratificati on for ERCP, post ERCP. History of Diabetes, hypertension, hypothyroid, DVT (on Coumadin) Seen and examined by me and Dr. Shah Objective - Vital Signs/Intake and Output Vital Signs (last 24 hours): Temp Pulse Resp BP Pulse Ox 98.4 F 72 16 145/77 96 08/25/18 23:41 08/25/18 23:41 08/25/18 23:41 08/25/18 23:41 08/25/18 23:41 Intake and Output: 08/25/18 08/26/18 18:59 06:59 Intake Total 810 Balance 810 - Medications Medications: Current Medications Amlodipine Besylate (Norvasc) 10 mg PO DAILY [facility] Last Admin: 08/25/18 09:58 Dose: 10 mg Heparin Sodium (Porcine) (Heparin) 5,000 units SC Q12 [facility]; Protocol Last Admin: 08/25/18 22:29 Dose: 5,000 units Meropenem (Merrem Iv 1 Gm Premix) 1 gm in 50 mls @ 100 mls/hr IVPB Q12 [facility]; Protocol Stop: 08/27/18 22:01 Last Admin: 08/25/18 22:32 Dose: 100 mls/hr Sodium Chloride (Sodium Chloride 0.9%) 1,000 mls @ 10 mls/hr IV .Q24H [facility] Last Admin: 08/25/18 19:02 Dose: 10 mls/hr Insulin Detemir (Levemir) 10 unit SC HS [facility] Last Admin: 08/25/18 22:31 Dose: 10 unit Insulin Human Lispro (Humalog Med) 0 units SC ACHS [facility]; Protocol Last Admin: 08/25/18 22:23 Dose: Not Given Levothyroxine Sodium (Synthroid) 125 mcg PO ACB [facility] Last Admin: 08/25/18 08:05 Dose: 125 mcg Metoprolol Tartrate (Lopressor) 100 mg PO BID [facility] Last Admin: 08/25/18 18:58 Dose: 100 mg Ondansetron HCl (Zofran Inj) 4 mg IVP Q6H PRN PRN Reason: Nausea/Vomiting Pantoprazole Sodium (Protonix Ec Tab) 40 mg PO 0600 [facility] - Labs Labs: 08/25/18 05:45 08/25/18 05:45 PT 15.0 SECONDS (9.4-12.5) H 08/21/18 06:30 INR 1.30 08/21/18 06:30 APTT 42.4 Seconds (25.1-36.5) H 08/21/18 06:30 - Constitutional Appears: Non-toxic, No Acute Distress - Head Exam Head Exam: NORMAL INSPECTION, NORMOCEPHALIC - Eye Exam Eye Exam: Normal appearance Pupil Exam: NORMAL ACCOMODATION - ENT Exam ENT Exam: Mucous Membranes Moist, Normal Exam - Cardiovascular Exam Cardiovascular Exam: +S1, +S2 Additional comments: No JVD - GI/Abdominal Exam GI & Abdominal Exam: Soft, Normal Bowel Sounds - Extremities Exam Extremities Exam: Full ROM, Normal Capillary Refill - Neurological Exam Neurological Exam: Alert, Awake, Oriented x3 - Psychiatric Exam Psychiatric exam: Normal Affect, Normal Mood - Skin Skin Exam: Dry, Normal Color, Warm Assessment and Plan - Assessment and Plan (Free Text) Assessment: An 83 year old female who came in to the ER due to elevated INR. Patient is on Coumadin for DVT. INR was 12.9 by [facility] thus sent to the ER by PMD. She also complaint of RUQ pain and nausea and vomiting and diarrhea. She had an outpatient US of the abdomen and showed gallstone. History of Diabetes, hypertension, hypothyroid, DVT. She was given FFP and vitamin K for elevated INR. Repeat INR now is 1.44. Denies chest pain or shortness of breath. Troponin normal. EKG normal sinus rhythm, no ischemia, no ST changes.Chest X ray showed no pulmonary congestion. Last Echo done 07/16/15 showed Normal ventricle, LVEF 55-60%,mild aortic regurgitation, aortic sclerosis vs. mild As,trace mitral regurgitation, mild tricuspid regurgitation. RVSP 42 mmHg. Patient is cleared for surgery with moderate risk. No absolute contraindication. No evidence of myocardial infarction or congestive heart failure. Status post ERCP with CBD stenting, mass at ampulla,biopsy done, awaiting pathology result, delay surgical intervention per General surgery. Echo done. Positive klebsiella in urine. On contact isolation. On IV antibiotics. 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 Shah
[2018-08-26] MEDS: Pantoprazole 40 mg EC Tab PO SCH (06:46)
[2018-08-26] MEDS: Insulin Lispro (humaLOG) MEDIUM Coverage SC SCH ×4 (08:24→22:05)
[2018-08-26] MEDS: Levothyroxine 125 MCG TAB PO SCH (08:29)
[2018-08-26] MEDS: Meropenem IV 1 gm in NS 1 GM/50 ML BAG IVPB SCH ×2 (09:02→21:30)
--- NOTE | 2018-08-26 12:41 | PN ---
DATE: 08/22/2018 REASON FOR CONSULTATION AND FOLLOWUP: Preop evaluation and risk stratification. This note is in addition to dictated by nurse practitioner. SUBJECTIVE: The patient had yesterday echocardiography done that revealed ejection fraction of 55%, mild aortic regurgitation, mild to moderate mild tricuspid 27. History of DVT, was on Coumadin; diabetes; hypothyroidism; hypertension; status post ERCP awaiting for biopsy. ASSESSMENT AND PLAN: Continue low dose of Synthroid, continue Lopressor 25 p.o. twice a day. the patient does not need surgical intervention, please resume Coumadin. Ramón Shah MD
[2018-08-26] MEDS: Sodium Chloride 0.9% 1,000 ML IV SCH (12:45)
--- NOTE | 2018-08-26 14:03 | CP.PCM.PN ---
Subjective - Date & Time of Evaluation Date of Evaluation: 08/26/18 Time of Evaluation: 09:30 - Subjective Subjective: Clinical Care Coordination Note seen and examined 83 y/o F arrived to ED with abnormal labs Leukocytosis, supra coagulopathy, elevated Alk phos, hypomagnesium and Thrombocythemia associated with RUQ abdominal pain, nausea, vomiting and diarrhea. PMHx DM, HTN, hypothyroidism, DVT/PE on coumadin. CT abdomen/pelvis showed subcapsular fluid collection along the posterior inferior border of liver and several gallstones possible cholecystitis. Patient was admitted for supra coagulopathy and abdominal pain r/o cholecystitis. Today patient is pain free, no N/V/D and tolerating food without complication. Objective - Vital Signs/Intake and Output Vital Signs (last 24 hours): Temp Pulse Resp BP Pulse Ox 97.8 F 74 18 133/69 100 08/26/18 12:00 08/26/18 12:00 08/26/18 12:00 08/26/18 12:00 08/26/18 06:00 Intake and Output: 08/26/18 08/26/18 06:59 18:59 Intake Total 290 Balance 290 - Medications Medications: Current Medications Amlodipine Besylate (Norvasc) 10 mg PO DAILY [facility] Last Admin: 08/26/18 09:05 Dose: 10 mg Heparin Sodium (Porcine) (Heparin) 5,000 units SC Q12 [facility]; Protocol Last Admin: 08/26/18 09:01 Dose: 5,000 units Meropenem (Merrem Iv 1 Gm Premix) 1 gm in 50 mls @ 100 mls/hr IVPB Q12 [facility]; Protocol Stop: 08/27/18 22:01 Last Admin: 08/26/18 09:02 Dose: 100 mls/hr Sodium Chloride (Sodium Chloride 0.9%) 1,000 mls @ 10 mls/hr IV .Q24H [facility] Last Admin: 08/25/18 19:02 Dose: 10 mls/hr Insulin Detemir (Levemir) 10 unit SC HS [facility] Last Admin: 08/25/18 22:31 Dose: 10 unit Insulin Human Lispro (Humalog Med) 0 units SC ACHS [facility]; Protocol Last Admin: 08/26/18 12:40 Dose: 1 units Levothyroxine Sodium (Synthroid) 125 mcg PO ACB [facility] Last Admin: 08/26/18 08:29 Dose: 125 mcg Metoprolol Tartrate (Lopressor) 100 mg PO BID [facility] Last Admin: 08/26/18 09:03 Dose: 100 mg Ondansetron HCl (Zofran Inj) 4 mg IVP Q6H PRN PRN Reason: Nausea/Vomiting Pantoprazole Sodium (Protonix Ec Tab) 40 mg PO 0600 [facility] Last Admin: 08/26/18 06:46 Dose: 40 mg Warfarin Sodium (Coumadin) 2 mg PO 1800 [facility]; Protocol - Labs Labs: 08/25/18 05:45 08/25/18 05:45 PT 15.0 SECONDS (9.4-12.5) H 08/21/18 06:30 INR 1.30 08/21/18 06:30 APTT 42.4 Seconds (25.1-36.5) H 08/21/18 06:30 - Constitutional Appears: Well, Non-toxic, No Acute Distress - Head Exam Head Exam: ATRAUMATIC, NORMOCEPHALIC - Eye Exam Eye Exam: EOMI, Normal appearance, PERRL Pupil Exam: NORMAL ACCOMODATION - ENT Exam ENT Exam: Mucous Membranes Moist, Normal Exam - Neck Exam Neck Exam: Full ROM - Respiratory Exam Respiratory Exam: Clear to Ausculation Bilateral, NORMAL BREATHING PATTERN - Cardiovascular Exam Cardiovascular Exam: REGULAR RHYTHM, +S1, +S2 - GI/Abdominal Exam GI & Abdominal Exam: Soft, Normal Bowel Sounds - Rectal Exam Rectal Exam: Deferred - Extremities Exam Extremities Exam: Full ROM, Normal Capillary Refill - Neurological Exam Neurological Exam: Alert, Awake, CN II-XII Intact, Oriented x3 Neuro motor strength exam: Left Upper Extremity: 5, Right Upper Extremity: 5, Left Lower Extremity: 4, Right Lower Extremity: 4 Additional comments: Generalized weakness PT recommended TCU - Skin Skin Exam: Dry, Normal Color, Warm Assessment and Plan - Assessment and Plan (Free Text) Assessment: A: Cholecystitis s/p ERCP with stent and biopsy negative for malignancy Subcapsular Fluid UTI repeat culture negative Plan: P: CT abdomen without contrast for reeval of fluid collection posterior inferior border of liver Follow up ERCP for stent removal in the future Patient for D/C home 08/27/18 on PO Augmentin 875/125 BID x 3-5 days or TCU as recommended by PT if agreeable. Questionable IR intervention by Dr. Sharif pending CT of abdomen result. Future cholecystectomy with drainage of questionable abscess if present will make further recommendations post CT of the abdomen.
--- NOTE | 2018-08-26 14:05 | CP.PCM.PN ---
<KrisSheila - Last Filed: 08/26/18 14:02> Subjective - Date & Time of Evaluation Date of Evaluation: 08/26/18 Time of Evaluation: 14:02 - Subjective Subjective: Gastroenterology Fellow/PGY6 Progress Note Patient resting comfortably. Tolerating diet. Admits to bowel movement yesterday. Nursing denies acute events overnight. t. A 12-point review of systems negative except for as above. Objective - Vital Signs/Intake and Output Vital Signs (last 24 hours): Temp Pulse Resp BP Pulse Ox 97.8 F 74 18 133/69 100 08/26/18 12:00 08/26/18 12:00 08/26/18 12:00 08/26/18 12:00 08/26/18 06:00 Intake and Output: 08/26/18 08/26/18 06:59 18:59 Intake Total 290 Balance 290 - Medications Medications: Current Medications Amlodipine Besylate (Norvasc) 10 mg PO DAILY [facility] Last Admin: 08/26/18 09:05 Dose: 10 mg Heparin Sodium (Porcine) (Heparin) 5,000 units SC Q12 [facility]; Protocol Last Admin: 08/26/18 09:01 Dose: 5,000 units Meropenem (Merrem Iv 1 Gm Premix) 1 gm in 50 mls @ 100 mls/hr IVPB Q12 [facility]; Protocol Stop: 08/27/18 22:01 Last Admin: 08/26/18 09:02 Dose: 100 mls/hr Sodium Chloride (Sodium Chloride 0.9%) 1,000 mls @ 10 mls/hr IV .Q24H [facility] Last Admin: 08/25/18 19:02 Dose: 10 mls/hr Insulin Detemir (Levemir) 10 unit SC HS [facility] Last Admin: 08/25/18 22:31 Dose: 10 unit Insulin Human Lispro (Humalog Med) 0 units SC ACHS [facility]; Protocol Last Admin: 08/26/18 12:40 Dose: 1 units Levothyroxine Sodium (Synthroid) 125 mcg PO ACB [facility] Last Admin: 08/26/18 08:29 Dose: 125 mcg Metoprolol Tartrate (Lopressor) 100 mg PO BID [facility] Last Admin: 08/26/18 09:03 Dose: 100 mg Ondansetron HCl (Zofran Inj) 4 mg IVP Q6H PRN PRN Reason: Nausea/Vomiting Pantoprazole Sodium (Protonix Ec Tab) 40 mg PO 0600 [facility] Last Admin: 08/26/18 06:46 Dose: 40 mg Warfarin Sodium (Coumadin) 2 mg PO 1800 [facility]; Protocol - Labs Labs: 08/25/18 05:45 08/25/18 05:45 PT 15.0 SECONDS (9.4-12.5) H 08/21/18 06:30 INR 1.30 08/21/18 06:30 APTT 42.4 Seconds (25.1-36.5) H 08/21/18 06:30 - Constitutional Appears: Non-toxic, No Acute Distress - Head Exam Head Exam: ATRAUMATIC, NORMOCEPHALIC - Eye Exam Eye Exam: EOMI, PERRL. absent: Scleral icterus Pupil Exam: PERRL. absent: Miosis, Mydriatic - ENT Exam ENT Exam: Mucous Membranes Moist, Normal Oropharynx - Neck Exam Neck Exam: Full ROM, Normal Inspection - Respiratory Exam Respiratory Exam: Clear to Ausculation Bilateral. absent: Rales, Rhonchi, Wheezes - Cardiovascular Exam Cardiovascular Exam: RRR, +S1, +S2. absent: Gallop, Rubs - GI/Abdominal Exam GI & Abdominal Exam: Soft, Normal Bowel Sounds. absent: Distended, Firm, Guarding, Rigid, Tenderness, Organomegaly, Rebound - Extremities Exam Extremities Exam: Normal Inspection. absent: Pedal Edema - Neurological Exam Neurological Exam: Alert, Awake - Psychiatric Exam Psychiatric exam: Normal Affect, Normal Mood - Skin Skin Exam: Dry, Intact, Normal Color, Warm Assessment and Plan - Assessment and Plan (Free Text) Assessment: 83 year old female with PMH of Afib, DVT, (on Coumadin), Hypothyroidism, HTN, and Diabetes presenting with abdominal pain, vomiting, and diarrhea. Active treatment of sepsis 2/2 cholangitis/choledocholithiasis POD6 (08/20) ERCP with sphincterotomy/balloon sweep/stone extraction with [id number] plastic stent placement, 11.5 x 4.2 x 8.2cm hepatic subcapsular fluid collection, likely hemorrhagic in setting of supratherapeutic INR on admission. Plan: -on Merrem day 8 -resolved cholangitis with stent biliary drainage in place -ampulla biopsy- no dysplasia or malignancy -ALP improving -surgery managing - follow up recommendation for subcapsular fluid collection -ID managing -tolerating low fat diet -will require outpatient repeat ERCP for biliary stent removal -will follow clinical course <Courtney Redding V - Last Filed: 08/27/18 00:01> Objective - Vital Signs/Intake and Output Vital Signs (last 24 hours): Temp Pulse Resp BP Pulse Ox 98.1 F 78 18 131/71 100 08/26/18 17:33 08/26/18 17:53 08/26/18 17:33 08/26/18 17:53 08/26/18 06:00 Intake and Output: 08/26/18 08/27/18 18:59 06:59 Intake Total 780 Balance 780 - Medications Medications: Current Medications Amlodipine Besylate (Norvasc) 10 mg PO DAILY [facility] Last Admin: 08/26/18 09:05 Dose: 10 mg Heparin Sodium (Porcine) (Heparin) 5,000 units SC Q12 [facility]; Protocol Last Admin: 08/26/18 21:30 Dose: 5,000 units Meropenem (Merrem Iv 1 Gm Premix) 1 gm in 50 mls @ 100 mls/hr IVPB Q12 [facility]; Protocol Stop: 08/27/18 22:01 Last Admin: 08/26/18 21:30 Dose: 100 mls/hr Sodium Chloride (Sodium Chloride 0.9%) 1,000 mls @ 10 mls/hr IV .Q24H [facility] Last Admin: 08/26/18 12:45 Dose: 10 mls/hr Insulin Detemir (Levemir) 10 unit SC HS [facility] Last Admin: 08/26/18 21:33 Dose: 10 unit Insulin Human Lispro (Humalog Med) 0 units SC ACHS [facility]; Protocol Last Admin: 08/26/18 22:05 Dose: Not Given Levothyroxine Sodium (Synthroid) 125 mcg PO ACB [facility] Last Admin: 08/26/18 08:29 Dose: 125 mcg Metoprolol Tartrate (Lopressor) 100 mg PO BID [facility] Last Admin: 08/26/18 17:53 Dose: 100 mg Ondansetron HCl (Zofran Inj) 4 mg IVP Q6H PRN PRN Reason: Nausea/Vomiting Pantoprazole Sodium (Protonix Ec Tab) 40 mg PO 0600 [facility] Last Admin: 08/26/18 06:46 Dose: 40 mg - Labs Labs: 08/25/18 05:45 08/25/18 05:45 PT 15.0 SECONDS (9.4-12.5) H 08/21/18 06:30 INR 1.30 08/21/18 06:30 APTT 42.4 Seconds (25.1-36.5) H 08/21/18 06:30 Attending/Attestation - Attestation I have personally seen and examined this patient.: Yes I have fully participated in the care of the patient.: Yes I have reviewed all pertinent clinical information, including history, physical exam and plan: Yes Notes (Text): This is an addendum to GI progress report dictated by the GI Fellow.The patient was seen and examined earlier. Medical records, lab studies, imagings were reviewed. Last 24 hours events reviewed. Agreed with the above treatment plan as outlined in GI Fellow 's notes with the addition of the following 08/27/18 00:01
--- NOTE | 2018-08-26 16:10 | CT ---
Date of service: 08/26/2018 PROCEDURE: CT Abdomen without intravenous contrast HISTORY: reeval of subcapsular fluid collection along liver COMPARISON: None. TECHNIQUE: Axial images of the abdomen from lung bases to iliac crest without intravenous contrast enhancement. Coronal and sagittal reformats generated. Radiation dose: Total exam DLP = 302.71 mGy-cm. This CT exam was performed using one or more of the following dose reduction techniques: Automated exposure control, adjustment of the mA and/or kV according to patient size, and/or use of iterative reconstruction technique. Without contrast. FINDINGS: LOWER THORAX: Small to moderate right effusion LIVER: There is no significant change in the size of the subcapsular fluid collections in the right lobe of the liver. The large collection measures 8 x 4.3 cm and the smaller collection near the gallbladder fossa measures 3 cm in diameter. GALLBLADDER AND BILE DUCTS: The gallbladder contains moderately dense sludge and several stones. A common duct stent is now seen in good position PANCREAS: Unremarkable. No gross lesion or ductal dilatation. SPLEEN: Unremarkable. ADRENALS: Unremarkable. No mass. KIDNEYS AND URETERS: Unremarkable. No hydronephrosis. No solid mass. VASCULATURE: Unremarkable. No aortic aneurysm. Aortic calcifications a caval filter is seen. BOWEL: Unremarkable. No obstruction. No gross mural thickening. APPENDIX: Normal appendix. PERITONEUM: Unremarkable. No free fluid. No free air. LYMPH NODES: Unremarkable. No enlarged lymph nodes. BONES: No acute fracture. OTHER FINDINGS: None. IMPRESSION: No change in size of subcapsular fluid collections.
--- NOTE | 2018-08-26 19:34 | PN ---
DATE: 08/26/2018 SUBJECTIVE: The patient is an 83-year-old, seen and examined, doing well, eating and tolerating. No nausea or vomiting. No diarrhea. No chest pain. No shortness of breath. PHYSICAL EXAMINATION: VITAL SIGNS: The patient is afebrile, pulse 78, respirations 18, and blood pressure 131/71. LUNGS: Bilateral fair airflow. No rhonchi or crackle. HEART: S1 and S2 audible. No murmur. ABDOMEN: Soft. No rebound. No guarding. NEUROLOGIC: The patient is awake, alert, oriented, communicative, and ambulatory. LABORATORY DATA: Chemistry: Blood sugar is 188. Had repeat CT of the abdomen done that shows there is no change in the size of subcapsular fluid collection. ASSESSMENT: 1. Cholelithiasis. 2. Ampullary growth, status post endoscopic retrograde cholangiopancreatography and biopsy, negative for malignancy. 3. Unchanged subcapsular fluid collection. 4. Status post supratherapeutic INR. 5. History of deep venous thrombosis. PLAN: Currently, the patient is on DVT prophylaxis and blood sugar is being monitored. She is on metoprolol. She is getting meropenem. Dr. Roosevelt Sharif has been consulted to drain the fluid and after that the patient will be sent to TCU for rehab and we will reevaluate the patient in a.m. Cindy Martins MD
--- NOTE | 2018-08-26 19:34 | PN ---
DATE: 08/26/2018 SUBJECTIVE: The patient is in bed, in no acute distress, nontoxic. PHYSICAL EXAMINATION: VITAL SIGNS: Temperature is 97, blood pressure is 120/70, respiratory rate 16. HEENT: Unremarkable. NECK: Supple. LUNGS: Decreased breath sounds. HEART: Normal S1 and S2. ABDOMEN: Soft. LABORATORY EXAMINATION: Reveal white count of 8,9, hemoglobin of 10, platelets of 542. BUN of 13, creatinine of 1.2. Urinalysis is noted and microbiology is reviewed with Klebsiella in the urine. ASSESSMENT AND PLAN: This is an 83-year-old with status post acute cholecystitis, status post endoscopic retrograde cholangio-pancreatography, sphincterotomy, lithotripsy, biliary stent placement and subcapsular fluid collection, hematoma versus abscess, currently on meropenem and the patient with hypertensive diabetes, hypothyroidism. Dr. Martins's note is reviewed. Waiting for biopsy. The patient had endoscopic retrograde cholangio-pancreatography. Shaun Hassan MD
[2018-08-26] MEDS: Insulin Detemir 100 units/ml Vial (Levemir) SC SCH (21:33)
--- NOTE | 2018-08-26 21:40 | CP.PCM.PCO ---
Physician Communication Note - Physician Communication Note Physician Communication Note: No free fluid-OK D/C home w PO AB/lo far diet- office f/u for interval OR
[2018-08-27] MEDS: Pantoprazole 40 mg EC Tab PO SCH (05:20)
--- NOTE | 2018-08-27 07:02 | CP.PCM.PN ---
Subjective - Date & Time of Evaluation Date of Evaluation: 08/27/18 Time of Evaluation: 06:25 - Subjective Subjective: No distress, Lying in bed, sleeping but easily awaken, Reason for consultation and follow up: Cardiac evaluation and risk stratifica tion for ERCP, post ERCP. History of Diabetes, hypertension, hypothyroid, DVT (on Coumadin) Seen and examined by me and Dr. Shah Objective - Vital Signs/Intake and Output Vital Signs (last 24 hours): Temp Pulse Resp BP Pulse Ox 98.1 F 74 18 143/77 97 08/27/18 05:51 08/27/18 05:51 08/27/18 05:51 08/27/18 05:51 08/27/18 00:01 Intake and Output: 08/27/18 08/27/18 06:59 18:59 Intake Total 600 Balance 600 - Medications Medications: Current Medications Amlodipine Besylate (Norvasc) 10 mg PO DAILY [facility] Last Admin: 08/26/18 09:05 Dose: 10 mg Heparin Sodium (Porcine) (Heparin) 5,000 units SC Q12 [facility]; Protocol Last Admin: 08/26/18 21:30 Dose: 5,000 units Meropenem (Merrem Iv 1 Gm Premix) 1 gm in 50 mls @ 100 mls/hr IVPB Q12 [facility]; Protocol Stop: 08/27/18 22:01 Last Admin: 08/26/18 21:30 Dose: 100 mls/hr Sodium Chloride (Sodium Chloride 0.9%) 1,000 mls @ 10 mls/hr IV .Q24H [facility] Last Admin: 08/26/18 12:45 Dose: 10 mls/hr Insulin Detemir (Levemir) 10 unit SC HS [facility] Last Admin: 08/26/18 21:33 Dose: 10 unit Insulin Human Lispro (Humalog Med) 0 units SC ACHS [facility]; Protocol Last Admin: 08/26/18 22:05 Dose: Not Given Levothyroxine Sodium (Synthroid) 125 mcg PO ACB [facility] Last Admin: 08/26/18 08:29 Dose: 125 mcg Metoprolol Tartrate (Lopressor) 100 mg PO BID [facility] Last Admin: 08/26/18 17:53 Dose: 100 mg Ondansetron HCl (Zofran Inj) 4 mg IVP Q6H PRN PRN Reason: Nausea/Vomiting Pantoprazole Sodium (Protonix Ec Tab) 40 mg PO 0600 [facility] Last Admin: 08/27/18 05:20 Dose: 40 mg - Labs Labs: 08/25/18 05:45 08/25/18 05:45 PT 15.0 SECONDS (9.4-12.5) H 08/21/18 06:30 INR 1.30 08/21/18 06:30 APTT 42.4 Seconds (25.1-36.5) H 08/21/18 06:30 - Constitutional Appears: Non-toxic, No Acute Distress - Head Exam Head Exam: NORMAL INSPECTION, NORMOCEPHALIC - Eye Exam Eye Exam: Normal appearance Pupil Exam: NORMAL ACCOMODATION - ENT Exam ENT Exam: Mucous Membranes Moist, Normal Exam - Respiratory Exam Respiratory Exam: Clear to Ausculation Bilateral, NORMAL BREATHING PATTERN - Cardiovascular Exam Cardiovascular Exam: +S1, +S2 Additional comments: No JVD - GI/Abdominal Exam GI & Abdominal Exam: Soft, Normal Bowel Sounds - Extremities Exam Extremities Exam: Full ROM, Normal Capillary Refill - Neurological Exam Neurological Exam: Alert, Awake, Oriented x3 - Psychiatric Exam Psychiatric exam: Normal Affect, Normal Mood - Skin Skin Exam: Dry, Normal Color, Warm Assessment and Plan - Assessment and Plan (Free Text) Assessment: An 83 year old female who came in to the ER due to elevated INR. Patient is on Coumadin for DVT. INR was 12.9 by [facility] thus sent to the ER by PMD. She also complaint of RUQ pain and nausea and vomiting and diarrhea. She had an outpatient US of the abdomen and showed gallstone. History of Diabetes, hypertension, hypothyroid, DVT. She was given FFP and vitamin K for elevated INR. Repeat INR now is 1.44. Denies chest pain or shortness of breath. Troponin normal. EKG normal sinus rhythm, no ischemia, no ST changes.Chest X ray showed no pulmonary congestion. Last Echo done 07/16/15 showed Normal ventricle, LVEF 55-60%,mild aortic regurgitation, aortic sclerosis vs. mild As,trace mitral regurgitation, mild tricuspid regurgitation. RVSP 42 mmHg. Patient is cleared for surgery with moderate risk. No absolute contraindication. No evidence of myocardial infarction or congestive heart failure. Status post ERCP with CBD stenting, mass at ampulla,biopsy done, awaiting pathology result, delay surgical intervention per General surgery. Echo done. Positive klebsiella in urine. On c ontact isolation. On IV antibiotics.Echo done yesterday- Normal chambers, LVEF 55%, Mild mitral and tricuspid regurgitation,RVSP 27 mmHg, No pericardial effusion or thrombus. Plan: Denies chest pain or shortness of breath On contact isolation for positive Klebsiella in urine On IV antibiotics as per ID Mass at ampulla, biopsy done, awaiting pathology result No surgical intervention per General surgery at this time Cardiac status stable Heart rate controlled Blood pressure controlled On Synthroid 125 mcg daily, Lopressor 100 mg BID,Norvasc 10 mg daily Continue antibiotics as ordered Continue current treatment Continue current medications Resume Coumadin Control glucose Chart reviewed Will follow up Plan and treatment discussed with Dr. Shah
[2018-08-27 08:25] LABS: BASO # 0.02 K/mm3 (0.0-2.0); BASO % 0.3 % (0.0-3.0); EOS # 0.2 (0.0-0.7); EOS % 2.1 % (1.5-5.0); GRAN # 4.93 (1.4-6.5); GRAN % 63.1 % (50.0-68.0); HEMOGLOBIN 10.3 g/dL (12.0-16.0); LYMPH # 2.1 (1.2-3.4); LYMPH % 26.3 % (22.0-35.0); MEAN CELL VOLUME 95.2 fl (80.0-105.0); MEAN CORPUSCULAR HEMOGLOBIN 30.7 pg (25.0-35.0); MEAN CORPUSCULAR HGB CONC 32.2 g/dl (31.0-37.0); MEAN PLATELET VOLUME 9.5 fl (7.0-11.0); MONO # 0.6 (0.1-0.6); MONO % 8.2 % (1.0-6.0); RBC 3.36 10^6/uL (3.5-6.1); RED CELL DISTRIBUTION WIDTH 13.9 % (11.5-14.5); WHITE BLOOD COUNT 7.8 10^3/uL (4.5-11.0)
[2018-08-27 08:34] LABS: INR 1.16; PARTIAL THROMBOPLASTIN TIME 36.4 Seconds (25.1-36.5); PROTHROMBIN TIME 13.4 SECONDS (9.4-12.5)
[2018-08-27] MEDS: Insulin Lispro (humaLOG) MEDIUM Coverage SC SCH ×4 (08:50→21:57)
[2018-08-27] MEDS: Levothyroxine 125 MCG TAB PO SCH (08:51)
[2018-08-27] MEDS: Meropenem IV 1 gm in NS 1 GM/50 ML BAG IVPB SCH ×2 (10:50→21:58)
--- NOTE | 2018-08-27 13:04 | PN ---
DATE: 08/27/2018 SUBJECTIVE: The patient is an 83-year-old, seen and examined, lying in bed, seems to be comfortable. Denies any nausea or vomiting. No abdominal pain. No fever, no chills. PHYSICAL EXAMINATION VITAL SIGNS: She is afebrile, pulse 75, respirations 20, blood pressure 140/74. LUNGS: Bilateral fair airflow. No rhonchi or crackle. HEART: S1, S2 audible. ABDOMEN: Soft, nontender. No rebound, no guarding. NEUROLOGIC: The patient is awake, alert, oriented. Communicative. LABORATORY DATA: Urine culture positive for Klebsiella ozaenae. ASSESSMENT: 1. Subcapsular collection. Repeat CT scan shows no change. 2. Acute cholecystitis that has resolved. 3. Supratherapeutic INR that has been corrected. 4. Pnv-qbaaian-dxfvkpvri diabetes. 5. Hypertension. 6. Hyperlipidemia. PLAN: So, plan is I will discuss with Dr. Roosevelt Sharif. He will reach out to Dr. Hopkins. Since the patient does not seem septic anymore, his suggestion is that she should have cholecystectomy done and that collection to be looked at instead of doing percutaneous drainage. We will discuss with Dr. Hopkins and make further plan; however, her ampullary growth histopathology report is negative for malignancy. We will make disposition plan after talking to Dr. Hopkins. Cindy Martins MD
--- NOTE | 2018-08-27 14:08 | CP.PCM.PN ---
Subjective - Date & Time of Evaluation Date of Evaluation: 08/27/18 Time of Evaluation: 09:40 - Subjective Subjective: Comfortable, no fevers, not in distress. Objective - Vital Signs/Intake and Output Vital Signs (last 24 hours): Temp Pulse Resp BP Pulse Ox 98.1 F 74 18 143/77 97 08/27/18 05:51 08/27/18 05:51 08/27/18 05:51 08/27/18 05:51 08/27/18 00:01 Intake and Output: 08/26/18 08/27/18 18:59 06:59 Intake Total 780 600 Balance 780 600 - Medications Medications: Current Medications Amlodipine Besylate (Norvasc) 10 mg PO DAILY [facility] Last Admin: 08/26/18 09:05 Dose: 10 mg Heparin Sodium (Porcine) (Heparin) 5,000 units SC Q12 [facility]; Protocol Last Admin: 08/26/18 21:30 Dose: 5,000 units Meropenem (Merrem Iv 1 Gm Premix) 1 gm in 50 mls @ 100 mls/hr IVPB Q12 [facility]; Protocol Stop: 08/27/18 22:01 Last Admin: 08/26/18 21:30 Dose: 100 mls/hr Sodium Chloride (Sodium Chloride 0.9%) 1,000 mls @ 10 mls/hr IV .Q24H [facility] Last Admin: 08/26/18 12:45 Dose: 10 mls/hr Insulin Detemir (Levemir) 10 unit SC HS [facility] Last Admin: 08/26/18 21:33 Dose: 10 unit Insulin Human Lispro (Humalog Med) 0 units SC ACHS [facility]; Protocol Last Admin: 08/26/18 22:05 Dose: Not Given Levothyroxine Sodium (Synthroid) 125 mcg PO ACB [facility] Last Admin: 08/26/18 08:29 Dose: 125 mcg Metoprolol Tartrate (Lopressor) 100 mg PO BID [facility] Last Admin: 08/26/18 17:53 Dose: 100 mg Ondansetron HCl (Zofran Inj) 4 mg IVP Q6H PRN PRN Reason: Nausea/Vomiting Pantoprazole Sodium (Protonix Ec Tab) 40 mg PO 0600 [facility] Last Admin: 08/27/18 05:20 Dose: 40 mg - Labs Labs: 08/25/18 05:45 08/25/18 05:45 PT 15.0 SECONDS (9.4-12.5) H 08/21/18 06:30 INR 1.30 08/21/18 06:30 APTT 42.4 Seconds (25.1-36.5) H 08/21/18 06:30 - Constitutional Appears: Chronically Ill - Head Exam Head Exam: NORMAL INSPECTION - Neck Exam Neck Exam: absent: Meningismus - Respiratory Exam Respiratory Exam: Decreased Breath Sounds - Cardiovascular Exam Cardiovascular Exam: +S1, +S2 - GI/Abdominal Exam GI & Abdominal Exam: Soft. absent: Tenderness Assessment and Plan - Assessment and Plan (Free Text) Plan: Assessment sepsis due to acute cholecystitis S/P ERCP, sphincterotomy, lithotripsy, biliary stent placement, POD #8 subscapsular fluid collection, hematoma versus abscess atrial fibrillation history of DVT hypothyroidism HTN DM Plan continue Merrem day 8 of 10-14 days pending plan for drainage of the subcapsular fluid, and cultures of the fluid if it is drained - would recommend Merrem since her urine is colonized with resistant Klebsiella follow up biopsy results (of biliary tissue)
--- NOTE | 2018-08-27 14:30 | PN ---
DATE: 08/27/2018 REASON FOR CONSULTATION AND FOLLOWUP: Cardiac evaluation followup, status post ERCP, history of diabetes, hypertension, hypothyroidism, history of DVT, on Coumadin. SUBJECTIVE: The patient had a repeat echo done with ejection fraction 55-60%, mild aortic regurgitation, aortic sclerosis, trace mitral regurgitation, mild tricuspid regurgitation, RV systolic pressure 42. RECOMMENDATIONS: Coumadin was held for ERCP initially. The patient has very elevated INR now and was reversed on the ERCP. Since no surgical intervention is planned, we will resume back Coumadin and will start 2 mg of Coumadin because no plan for intervention. Discontinue telemetry. Discharge planning. This note is an addition to dictated by our nurse practitioner, Reyna Almazan. Thank you for providing us the opportunity in taking care of this patient, Ayana Villar. Ramón Shah MD
--- NOTE | 2018-08-27 14:51 | CP.PCM.PN ---
Subjective - Date & Time of Evaluation Date of Evaluation: 08/27/18 Time of Evaluation: 12:00 - Subjective Subjective: Clinical Care Coordination Note seen and examined 83 y/o F s/p extraction of gallbladder stones with biliary duct stenting and biospsy. PMHx DM, HTN, hypothyroidism, DVT/PE on coumadin. CT abdomen/pelvis showed subcapsular fluid collection along the posterior inferior border of liver and several gallstones possible cholecy stitis. Patient was admitted for supra coagulopathy and abdominal pain r/o cholecystitis. Today patient is pain free, no N/V/D and tolerating food without complication. Denies fever, chills, MACKEY, dizziness, SOB, cough, hemoptysis, chest pain, abdominal pain, N/V/D, hematemesis or rectal bleeding. Objective - Vital Signs/Intake and Output Vital Signs (last 24 hours): Temp Pulse Resp BP Pulse Ox 98.1 F 75 20 140/74 97 08/27/18 12:00 08/27/18 12:00 08/27/18 12:00 08/27/18 12:00 08/27/18 00:01 Intake and Output: 08/27/18 08/27/18 06:59 18:59 Intake Total 600 Balance 600 - Medications Medications: Current Medications Amlodipine Besylate (Norvasc) 10 mg PO DAILY [facility] Last Admin: 08/27/18 10:50 Dose: 10 mg Heparin Sodium (Porcine) (Heparin) 5,000 units SC Q12 [facility]; Protocol Last Admin: 08/27/18 10:52 Dose: 5,000 units Meropenem (Merrem Iv 1 Gm Premix) 1 gm in 50 mls @ 100 mls/hr IVPB Q12 [facility]; Protocol Stop: 08/27/18 22:01 Last Admin: 08/27/18 10:50 Dose: 100 mls/hr Sodium Chloride (Sodium Chloride 0.9%) 1,000 mls @ 10 mls/hr IV .Q24H [facility] Last Admin: 08/26/18 12:45 Dose: 10 mls/hr Insulin Detemir (Levemir) 10 unit SC HS [facility] Last Admin: 08/26/18 21:33 Dose: 10 unit Insulin Human Lispro (Humalog Med) 0 units SC ACHS [facility]; Protocol Last Admin: 08/27/18 12:49 Dose: 1 units Levothyroxine Sodium (Synthroid) 125 mcg PO ACB [facility] Last Admin: 08/27/18 08:51 Dose: 125 mcg Metoprolol Tartrate (Lopressor) 100 mg PO BID [facility] Last Admin: 08/27/18 10:50 Dose: 100 mg Ondansetron HCl (Zofran Inj) 4 mg IVP Q6H PRN PRN Reason: Nausea/Vomiting Pantoprazole Sodium (Protonix Ec Tab) 40 mg PO 0600 [facility] Last Admin: 08/27/18 05:20 Dose: 40 mg Warfarin Sodium (Coumadin) 3 mg PO 1800 [facility]; Protocol - Labs Labs: 08/27/18 08:00 08/25/18 05:45 PT 13.4 SECONDS (9.4-12.5) H 08/27/18 08:00 INR 1.16 08/27/18 08:00 APTT 36.4 Seconds (25.1-36.5) 08/27/18 08:00 - Constitutional Appears: Well, Non-toxic, No Acute Distress, Chronically Ill - Head Exam Head Exam: ATRAUMATIC, NORMOCEPHALIC - Eye Exam Eye Exam: EOMI, Normal appearance, PERRL Pupil Exam: NORMAL ACCOMODATION - ENT Exam ENT Exam: Mucous Membranes Moist - Neck Exam Neck Exam: Full ROM - Respiratory Exam Respiratory Exam: Clear to Ausculation Bilateral, NORMAL BREATHING PATTERN - Cardiovascular Exam Cardiovascular Exam: REGULAR RHYTHM, +S1, +S2 - GI/Abdominal Exam GI & Abdominal Exam: Soft, Normal Bowel Sounds - Rectal Exam Rectal Exam: Deferred - Extremities Exam Extremities Exam: Full ROM, Normal Capillary Refill - Neurological Exam Neurological Exam: Alert, Awake, CN II-XII Intact, Oriented x3 Neuro motor strength exam: Left Upper Extremity: 5, Right Upper Extremity: 5, Left Lower Extremity: 4, Right Lower Extremity: 4 - Psychiatric Exam Psychiatric exam: Normal Affect, Normal Mood - Skin Skin Exam: Dry, Normal Color, Warm Assessment and Plan - Assessment and Plan (Free Text) Assessment: A/P: cholecystitis with supcapsular fluid collection along posterior/inferior border of liver continue antibiotics IV as per ID questionable IR intervention questionable cholecystectomy medications as per MAR will follow closely and await further recommendation by consultants consultants are continuously revaluating and discussing the best treatment option for this patient
[2018-08-27] MEDS: Insulin Detemir 100 units/ml Vial (Levemir) SC SCH (21:57)
--- NOTE | 2018-08-27 23:31 | CP.PCM.PCO ---
Physician Communication Note - Physician Communication Note Physician Communication Note: Dr Perez to aspirate fluid for c/s
[2018-08-28] MEDS: Pantoprazole 40 mg EC Tab PO SCH (05:59)
[2018-08-28 06:36] LABS: INR 1.19; PROTHROMBIN TIME 13.7 SECONDS (9.4-12.5)
--- NOTE | 2018-08-28 07:48 | CP.PCM.PN ---
Subjective - Date & Time of Evaluation Date of Evaluation: 08/28/18 Time of Evaluation: 07:00 - Subjective Subjective: No distress, Lying in bed, awake,alert Reason for consultation and follow up: Cardiac evaluation and risk stratification for ERCP, post ERCP. History of Diabetes, hypertension, hypothyroid, DVT (on Coumadin) Seen and examined by me and Dr. Shah Objective - Vital Signs/Intake and Output Vital Signs (last 24 hours): Temp Pulse Resp BP Pulse Ox 98.5 F 76 20 127/76 99 08/28/18 05:36 08/28/18 05:36 08/28/18 05:36 08/28/18 05:36 08/28/18 05:36 Intake and Output: 08/28/18 08/28/18 06:59 18:59 Intake Total 360 Output Total 420 Balance -60 - Medications Medications: Current Medications Amlodipine Besylate (Norvasc) 10 mg PO DAILY [facility] Last Admin: 08/27/18 10:50 Dose: 10 mg Heparin Sodium (Porcine) (Heparin) 5,000 units SC Q12 [facility]; Protocol Last Admin: 08/27/18 21:57 Dose: 5,000 units Sodium Chloride (Sodium Chloride 0.9%) 1,000 mls @ 10 mls/hr IV .Q24H [facility] Last Admin: 08/26/18 12:45 Dose: 10 mls/hr Meropenem (Merrem Iv 1 Gm Premix) 1 gm in 50 mls @ 100 mls/hr IVPB Q12 [facility]; Protocol Stop: 09/06/18 10:01 Insulin Detemir (Levemir) 10 unit SC HS [facility] Last Admin: 08/27/18 21:57 Dose: 10 unit Insulin Human Lispro (Humalog Med) 0 units SC ACHS [facility]; Protocol Last Admin: 08/27/18 21:57 Dose: Not Given Levothyroxine Sodium (Synthroid) 125 mcg PO ACB [facility] Last Admin: 08/27/18 08:51 Dose: 125 mcg Metoprolol Tartrate (Lopressor) 100 mg PO BID [facility] Last Admin: 08/27/18 17:24 Dose: 100 mg Ondansetron HCl (Zofran Inj) 4 mg IVP Q6H PRN PRN Reason: Nausea/Vomiting Pantoprazole Sodium (Protonix Ec Tab) 40 mg PO 0600 [facility] Last Admin: 08/28/18 05:59 Dose: 40 mg Warfarin Sodium (Coumadin) 3 mg PO 1800 [facility]; Protocol Last Admin: 08/27/18 17:24 Dose: 3 mg - Labs Labs: 08/27/18 08:00 08/25/18 05:45 PT 13.7 SECONDS (9.4-12.5) H 08/28/18 06:00 INR 1.19 08/28/18 06:00 APTT 36.4 Seconds (25.1-36.5) 08/27/18 08:00 - Constitutional Appears: Non-toxic, No Acute Distress - Head Exam Head Exam: NORMAL INSPECTION, NORMOCEPHALIC - Eye Exam Eye Exam: Normal appearance Pupil Exam: NORMAL ACCOMODATION - ENT Exam ENT Exam: Mucous Membranes Moist, Normal Exam - Respiratory Exam Respiratory Exam: Clear to Ausculation Bilateral, NORMAL BREATHING PATTERN - Cardiovascular Exam Cardiovascular Exam: +S1, +S2 - GI/Abdominal Exam GI & Abdominal Exam: Soft, Normal Bowel Sounds - Extremities Exam Extremities Exam: Full ROM, Normal Capillary Refill - Neurological Exam Neurological Exam: Alert, Awake, Oriented x3 - Psychiatric Exam Psychiatric exam: Normal Affect, Normal Mood - Skin Skin Exam: Dry, Normal Color, Warm Assessment and Plan - Assessment and Plan (Free Text) Assessment: An 83 year old female who came in to the ER due to elevated INR. Patient is on Coumadin for DVT. INR was 12.9 by [facility] thus sent to the ER by PMD. She also complaint of RUQ pain and nausea and vomiting and diarrhea. She had an outpatient US of the abdomen and showed gallstone. History of Diabetes, hypertension, hypothyroid, DVT. She was given FFP and vitamin K for elevated INR. Repeat INR now is 1.44. Denies chest pain or shortness of breath. Troponin normal. EKG normal sinus rhythm, no ischemia, no ST changes.Chest X ray showed no pulmonary congestion. Last Echo done 07/16/15 showed Normal ventricle, LVEF 55-60%,mild aortic regurgitation, aortic sclerosis vs. mild As,trace mitral regurgitation, mild tricuspid regurgitation. RVSP 42 mmHg. Patient is cleared for surgery with moderate risk. No absolute contraindication. No evidence of myocardial infarction or congestive heart failure. Status post ERCP with CBD stenting, mass at ampulla,biopsy done, awaiting pathology result, delay surgical intervention per General surgery. Echo done. Positive klebsiella in urine. On contact isolation. On IV antibiotics.Echo done yesterday- Normal chambers, LVEF 55%, Mild mitral and tricuspid regurgitation,RVSP 27 mmHg, No pericardial effusion or thrombus.No surgical intervention per General surgery at this time. Cholecystitis with supcapsular fluid collection along posterior/inferior border of liver, for possible aspiration of fluid for culture and sensitivity. Plan: Feels good,Denies chest pain or shortness of breath On contact isolation for positive Klebsiella in urine On IV antibiotics as per ID For possible aspiration of fluid (cholecystitis with supcapsular fluid collection along posterior/inferior border of liver) INR 1.19 today Coumadin restarted Cardiac status stable Heart rate controlled Blood pressure controlled On Synthroid 125 mcg daily, Lopressor 100 mg BID,Norvasc 10 mg daily Continue antibiotics as ordered Continue current treatment Continue current medications Control glucose Chart reviewed Will follow up Plan and treatment discussed with Dr. Shah
[2018-08-28] MEDS: Insulin Lispro (humaLOG) MEDIUM Coverage SC SCH ×4 (08:16→22:13)
[2018-08-28] MEDS: Levothyroxine 125 MCG TAB PO SCH (08:16)
[2018-08-28] MEDS: Meropenem IV 1 gm in NS 1 GM/50 ML BAG IVPB SCH ×2 (09:55→21:52)
--- NOTE | 2018-08-28 11:26 | CP.PCM.PCO ---
Physician Communication Note - Physician Communication Note Physician Communication Note: UA C/S Resist Klebsiella/Need CT Aspiration walter hepatic fluid for c/s
--- NOTE | 2018-08-28 11:27 | PN ---
DATE: 08/28/2018 SUBJECTIVE: The patient is in bed in no acute distress, nontoxic . PHYSICAL EXAMINATION: VITAL SIGNS: Temperature 98.7, blood pressure 130/70, respiratory rate 18, heart rate 70. HEENT: Examination of HEENT is unremarkable. NECK: Supple. LUNGS: Decreased breath sounds. HEART: Normal S1, S2. ABDOMEN: Soft, nontender. LABORATORY DATA: White count of 7.8, hemoglobin of 10, platelets of 435. BUN of 13, creatinine of 1.2. Urinalysis is noted. Urine culture is Klebsiella ozaenae. A repeat urine culture, it is negative. Dr. Hopkins' report communication report is noted. ASSESSMENT AND PLAN: This is an 83-year-old female who is admitted with sepsis secondary to cold cholecystitis, status post endoscopic retrograde cholangio-pancreatography, sphincterotomy, lithotripsy, biliary stent placement, post procedure day #9 with a subcapsular fluid collection, probable abscess as per my discussion with Dr. Roosevelt Sharif. I discussed the case with Dr. Hopkins who agrees for Dr. Roosevelt Sharif, Radiology, to do a CAT scan guided aspiration of the collection. Currently on meropenem day #9 and the biopsy result is negative. No evidence of malignancy on the biopsy. I am waiting for Dr. Roosevelt Sharif's procedure probably today. Review of orders reveals the patient's meropenem has fallen off the order list and we will re-order it again. The patient was on meropenem a gram every 12 hours. Maybe able to switch to p.o. antibiotics after the procedure and follow up as outpatient for determination of cholecystectomy. THE PATIENT IS ALLERGIC TO PENICILLIN. Shaun Hassan MD
[2018-08-28] MEDS ORDERED: Lidocaine 1% Inj (20ml) ONE (15:30)
[2018-08-28] MEDS ORDERED: Midazolam 2 MG/2 ML VIAL ONE (15:30)
[2018-08-28] MEDS ORDERED: Sodium Chloride 0.45% 1,000 ML IV SCH (17:15)
--- NOTE | 2018-08-28 17:43 | CT ---
PROCEDURE: CT guided subhepatic aspiration HISTORY: Acute on chronic cholecystitis. 4 x 8 cm right subhepatic fluid collection. Evaluate for abscess. PHYSICIAN(S): Roosevelt Sharif MD. TECHNIQUE: The relative risks and indications of the procedure were explained to the patient and consent obtained. The patient was placed in a left decubitus position on the CT scanner and preliminary images through the upper abdomen obtained. Conscious sedation and monitoring were provided throughout the procedure by a nurse. There is a 4 x 8 cm well-circumscribed low-attenuation fluid collection in the right subhepatic space. A right lateral approach was selected and the area prepped and draped in the usual sterile fashion. 1% Xylocaine was used to anesthetize the skin and soft tissues. An 18 gauge thin-walled needle was advanced into the collection and its position confirmed with CT. Aspiration obtained only 3-4 cc of viscous orange fluid. The specimen was sent to microbiology. The patient tolerated the procedure well. IMPRESSION: 1. CT-guided right subhepatic aspiration as described above. A microbiology specimen was sent
--- NOTE | 2018-08-28 20:21 | PN ---
DATE: 08/28/2018 REASON FOR CONSULTATION AND FOLLOWUP: Preop evaluation and postop followup status post ERCP and stent placement. History of diabetes, hypertension and hyperlipidemia. History of DVT, on Coumadin. This note is an addition to dictated by our nurse practitioner. The patient is off Coumadin since ERCP was done, now recently found to left subcapsular collection, possibly abscess, awaiting to go for CT-guided biopsy or aspiration of the fluid. Biopsy of the is negative, no evidence of malignancy. The patient is stable. Denies any chest pain, shortness of breath or any palpitation. History of a sphincterotomy, history of ERCP, history of lithotripsy and biliary stent. The patient had echocardiography on 08/25/2018 that shows normal chamber size; ejection fraction of 35%; mild aortic regurgitation; [id number] mitral regurgitation, more towards mild; mild tricuspid regurgitation. CVS status is stable. We started yesterday 2 mg of Coumadin. Today, INR is 1.1. We will put on hold Coumadin because the patient is going for possible ERCP. Once the biopsy is done, consider restarting for DVT and PE. CVS status is stable. Continue beta-ean. Continue hypertension medication. Continue levothyroxine 125 mcg. We will sign off, would like to follow p.r.n. Consider restarting Coumadin after the CT-guided aspiration and biopsy is done of the liver. Thank you, Dr. Martins, for providing us the opportunity in taking care of the patient, Aurea Piña. Ramón Shah MD
--- NOTE | 2018-08-28 21:09 | PN ---
DATE: 08/28/2018 SUBJECTIVE: The patient is 83 years old, seen and examined, lying in bed, seems to be comfortable. Denies any nausea, vomiting or diarrhea. No fever. No chills. PHYSICAL EXAMINATION: VITAL SIGNS: Temperature 99.4, pulse 74, respirations 19, blood pressure 122/70. LUNGS: Bilateral fair airflow. No rhonchi or crackle. HEART: S1 and S2 audible. ABDOMEN: Soft. No rebound. No guarding. NEUROLOGIC: She is awake, alert, oriented. Communicative. Ambulatory. LABORATORY EXAMINATION: WBC 7.8, hemoglobin 10.3, hematocrit 32, and platelet 435. PT is 13.7, INR 1.19. Chemistry: Blood sugar is 227. Blood cultures and urine cultures are negative. She has Klebsiella ozaenae that has multidrug resistance. ASSESSMENT: 1. Status post supratherapeutic international normalized ratio that is coagulopathy secondary to Coumadin. 2. Cholecystitis, resolved. 3. Multidrug resistant urinary tract infection, Klebsiella ozaenae. 4. Hepatic subcapsular collection. 5. Fnu-flhdfxu-oppsbuzls diabetes. PLAN: Currently, the patient is on meropenem. Continue that. She is scheduled for percutaneous drainage of the subcapsular collection and depending on that, further plan will be made. For now, we will continue her on current medications. Cindy Martins MD
[2018-08-28] MEDS: Insulin Detemir 100 units/ml Vial (Levemir) SC SCH (21:52)
[2018-08-28] MEDS: Sodium Chloride 0.9% 1,000 ML IV SCH (22:11)
--- NOTE | 2018-08-28 22:19 | NM ---
Date of service: 08/20/2018 PROCEDURE: Nuclear Medicine Hepatobiliary Scan HISTORY: COMPARISON: August 20, 2018 MRCP TECHNIQUE: 7.2 mCi of technetium 99m Mebrofenin was administered intravenously. Planar images of the abdomen were obtained at 5 min intervals to 60 mins. Delayed images were also obtained. FINDINGS: LIVER: Timely and homogenous uptake. COMMON BILE DUCT: identified at 15 mins. GALLBLADDER: Not identified at 60 mins. SMALL BOWEL: Identified at 30 mins. IMPRESSION: Positive hepatobiliary Scan. The cystic duct is occluded, presumptive evidence for acute cholecystitis..
[2018-08-29] MEDS: Pantoprazole 40 mg EC Tab PO SCH (05:22)
[2018-08-29 06:10] VITALS: O2SAT 96
[2018-08-29] MEDS: Insulin Lispro (humaLOG) MEDIUM Coverage SC SCH ×2 (08:21→12:20)
[2018-08-29] MEDS: Levothyroxine 125 MCG TAB PO SCH (08:22)
--- NOTE | 2018-08-29 08:37 | CP.PCM.PCO ---
Physician Communication Note - Physician Communication Note Physician Communication Note: No pus/gr stain c/s pending/Repeat Urine c/s now
[2018-08-29] MEDS: Meropenem IV 1 gm in NS 1 GM/50 ML BAG IVPB SCH (09:15)
[2018-08-29] MEDS ORDERED: GlipiZIDE 2.5 mg SR Tab PO SCH (12:00)
[2018-08-29 12:36] VITALS: BP 131/72; PULSE 71; RESP 19; TEMP 98.1
[2018-08-29] MEDS: Sodium Chloride 0.9% 1,000 ML IV SCH (13:34)
--- NOTE | 2018-08-29 17:15 | DS ---
HISTORY OF PRESENT ILLNESS: The patient is 83-year-old seen and examined, doing well, eating, and tolerating. Complain of generalized weakness and complain of difficulty walking. No nausea or vomiting. No diarrhea. PHYSICAL EXAMINATION: VITAL SIGNS: She is afebrile. Pulse 86, respirations 20, and blood pressure 135/72. LUNGS: Bilateral fair airflow. No rhonchi or crackle. HEART: S1 and S2 audible. ABDOMEN: Soft and nontender. No rebound. No guarding. NEUROLOGIC: The patient is awake, alert, oriented, and communicative. EXTREMITIES: Moves all extremities. Bilateral leg no edema. LABORATORY DATA: PT 13.7, INR 1.19. Chemistry: Blood sugar is 206. Stool cultures are negative. Urine positive for Klebsiella ozaenae. ASSESSMENT: 1. Acute cholecystitis. 2. Cholelithiasis. 3. Klebsiella ozaenae urinary track infection. 4. History of deep vein thrombosis. 5. Ibq-keyzfrj-yqczkfhmu diabetes. 6. Hyperlipidemia. 7. Hypothyroidism. PLAN: We will start the patient back on Coumadin. She can be transferred to TCU. We will continue meropenem for 10 to 14 days and we will restart her on her diabetes medications because she is eating well now. Continue to monitor blood sugar. Discussed with patient, she is agreeable to go to TCU. She will complete her course of antibiotics, plus we will make her Coumadin therapeutic, and she will get physical therapy. Cindy Martins MD
--- NOTE | 2018-08-29 17:54 | CP.PCM.PN ---
Subjective - Date & Time of Evaluation Date of Evaluation: 08/29/18 Time of Evaluation: 10:20 - Subjective Subjective: No abdominal pain, no fevers, not in distress. Objective - Vital Signs/Intake and Output Vital Signs (last 24 hours): Temp Pulse Resp BP Pulse Ox 98.1 F 71 19 131/72 96 08/29/18 12:00 08/29/18 12:00 08/29/18 12:00 08/29/18 12:00 08/29/18 06:00 Intake and Output: 08/29/18 08/29/18 06:59 18:59 Intake Total 290 Balance 290 - Labs Labs: 08/27/18 08:00 08/25/18 05:45 PT 13.7 SECONDS (9.4-12.5) H 08/28/18 06:00 INR 1.19 08/28/18 06:00 APTT 36.4 Seconds (25.1-36.5) 08/27/18 08:00 - Constitutional Appears: Chronically Ill - Head Exam Head Exam: NORMAL INSPECTION - Respiratory Exam Respiratory Exam: Decreased Breath Sounds - Cardiovascular Exam Cardiovascular Exam: +S1, +S2 - GI/Abdominal Exam GI & Abdominal Exam: Soft. absent: Tenderness Assessment and Plan - Assessment and Plan (Free Text) Plan: Assessment sepsis due to acute cholecystitis S/P ERCP, sphincterotomy, lithotripsy, biliary stent placement, POD #10 subscapsular fluid collection, R/O abscess S/P IR-guided drainage 08/28/2018 atrial fibrillation history of DVT hypothyroidism HTN DM Plan continue Merrem day 10 of 10-14 days pending cultures from the subcapsular fluid follow up biopsy results (of biliary tissue) discussed with Dr. Hopkins and Dr. Martins
== END 2018-08-29 14:00 | DRG 871 ==
LOC: ED 12:44 → ERH 14:18 → 5RNO 16:11 → 2RNO 22:14
PROVIDERS: ADMIT Internal Medicine; ATTEND Internal Medicine
PROC: 30233K1 Transfusion of Nonautologous Frozen Plasma into Peripheral Vein, Percutaneous Approach (ICD-10-PCS; 2018-08-19)
PROC: 0FBC8ZX Excision of Ampulla of Vater, Via Natural or Artificial Opening Endoscopic, Diagnostic (ICD-10-PCS; principal; 2018-08-20 15:00)
PROC: 0FC98ZZ Extirpation of Matter from Common Bile Duct, Via Natural or Artificial Opening Endoscopic (ICD-10-PCS; 2018-08-20 15:00)
PROC: 0F798DZ Dilation of Common Bile Duct with Intraluminal Device, Via Natural or Artificial Opening Endoscopic (ICD-10-PCS; 2018-08-20 15:00)
PROC: 0DJ08ZZ Inspection of Upper Intestinal Tract, Via Natural or Artificial Opening Endoscopic (ICD-10-PCS; 2018-08-20 15:00)
PROC: 0F913ZX Drainage of Right Lobe Liver, Percutaneous Approach, Diagnostic (ICD-10-PCS; 2018-08-28)
DX: A41.9 Sepsis, unspecified organism (principal); K75.0 Abscess of liver; K80.62 Calculus of gallbladder and bile duct with acute cholecystitis without obstruction; J90 Pleural effusion, not elsewhere classified; N39.0 Urinary tract infection, site not specified; I10 Essential (primary) hypertension; E11.65 Type 2 diabetes mellitus with hyperglycemia; E03.9 Hypothyroidism, unspecified; I48.2 Chronic atrial fibrillation; K22.70 Barrett's esophagus without dysplasia; K29.80 Duodenitis without bleeding; E83.42 Hypomagnesemia; I08.3 Combined rheumatic disorders of mitral, aortic and tricuspid valves; M81.0 Age-related osteoporosis without current pathological fracture; E78.5 Hyperlipidemia, unspecified; Z16.24 Resistance to multiple antibiotics; I70.0 Atherosclerosis of aorta; B96.1 Klebsiella pneumoniae [K. pneumoniae] as the cause of diseases classified elsewhere; Z96.641 Presence of right artificial hip joint; R79.1 Abnormal coagulation profile; Z79.01 Long term (current) use of anticoagulants; Z86.718 Personal history of other venous thrombosis and embolism; Z79.84 Long term (current) use of oral hypoglycemic drugs; Z79.890 Hormone replacement therapy; Z88.0 Allergy status to penicillin

== ENCOUNTER 2018-08-29 14:03 | Inpatient (IN) | payer OTHER, MEDICARE ==
[2018-08-29] MEDS ORDERED: Sodium Chloride 0.9% 250 ML IV ONE (15:18)
[2018-08-29] MEDS: Insulin Lispro (humaLOG) MEDIUM Coverage SC SCH ×2 (17:52→22:17)
[2018-08-29] MEDS: Meropenem IV 1 gm in NS 1 GM/50 ML BAG IVPB SCH (17:56)
[2018-08-29] MEDS ORDERED: MEROPENEM 500 MG in NS 500 MG/50 ML BAG IVPB SCH (18:00)
[2018-08-29 21:11] VITALS: BMI 30.2
[2018-08-29] MEDS ORDERED: Pneumococcal 23-Valent Vaccine IM ONE (21:11)
[2018-08-29] MEDS ORDERED: Influenza Vaccine 60 mcg/0.5 mL SYR (4YR UP) IM ONE (21:11)
[2018-08-29] MEDS: Insulin Detemir 100 units/ml Vial (Levemir) SC SCH (22:21)
[2018-08-30] MEDS: Meropenem IV 1 gm in NS 1 GM/50 ML BAG IVPB SCH ×2 (05:43→17:25)
[2018-08-30] MEDS: Pantoprazole 40 mg EC Tab PO SCH (05:54)
[2018-08-30] MEDS: Levothyroxine 125 MCG TAB PO SCH (05:55)
[2018-08-30] MEDS: Insulin Lispro (humaLOG) MEDIUM Coverage SC SCH ×4 (06:50→22:05)
--- NOTE | 2018-08-30 13:21 | CP.PCM.PCO ---
Physician Communication Note - Physician Communication Note Physician Communication Note: Gram stain NEG/UA C/S ordered
--- NOTE | 2018-08-30 13:38 | CON ---
DATE OF CONSULTATION: 08/30/2018 The patient is seen earlier today in Room 321. CHIEF COMPLAINT: Weakness times several days. HISTORY OF PRESENT ILLNESS: This is an 83-year-old female with past medical history significant for DVT, hypothyroidism, diabetes mellitus, hypertension, who was admitted with sepsis secondary to acute cholecystitis, had an ERCP, had sphincterotomy and lithotripsy and biliary stent placement and found to have also a subcapsular fluid collection and had an invasive Radiology drainage by Dr. Roosevelt Sharif on 08/28/2018. The patient does have a history of DVT and AFib, on therapy of meropenem day #11, now transferred to Transitional Care for further physical therapy and antibiotic therapy. PAST MEDICAL HISTORY: Significant for hypothyroidism, hypertension, diabetes, DVT. PAST SURGICAL HISTORY: Significant for orthopedic surgery. ALLERGIES: THE PATIENT IS ALLERGIC TO PENICILLIN, ACETAMINOPHEN, AND OXYCODONE. REVIEW OF SYSTEMS: A 12-point review of systems was performed and the patient at this time has no fevers and no chills. No nausea or vomiting. No chest pain. Dr. Roosevelt Sharif's CT-guided drainage of the abscess progress note is reviewed. PHYSICAL EXAMINATION: GENERAL: The patient is in bed, in no acute distress, nontoxic. VITAL SIGNS: Temperature of 98, heart rate is 71, respiratory rate of 18, blood pressure is 130/70. HEENT: Unremarkable. NECK: Supple. LUNGS: Decreased breath sounds. HEART: Normal S1 and S2. ABDOMEN: Soft, nontender. LABORATORY EXAMINATION: White count of 7.8, hemoglobin of 10, platelets of 435. Chemistries reveal the creatinine is 1.2. Urinalysis is noted. Microbiology is reviewed. The IR cultures are pending. Review of orders reveals the patient to be on meropenem. ASSESSMENT AND PLAN: This is an 83-year-old female who was seen earlier today in transitional care, who was in the acute care, admitted with sepsis, acute cholecystitis, status post ERCP with sphincterotomy and lithotripsy and biliary stent, also with a subcapsular abscess status post invasive radiology intervention with a CT-directed drainage on 08/28/2018, currently on day #11 of meropenem. Awaiting for cultures from the subcapsular fluid. We will make further recommendations. We will follow closely with you. Shaun Hassan MD
--- NOTE | 2018-08-30 14:33 | HP ---
DATE OF EXAM: 08/30/2018 HISTORY OF PRESENT ILLNESS: The patient is an 83-year-old who was initially admitted because she was found to have high INR. She was given vitamin K. She was found to have subcapsular hepatic collection. Initially, she was treated for acute cholecystitis. She was also found to have multidrug resistance, Klebsiella ozaenae infection, has been on IV antibiotics since then. She had that Klebsiella fluid drained and sent for culture and transferred to TCU yesterday for physical therapy and completion of antibiotics. PAST MEDICAL HISTORY: Patient has significant past medical history of: 1. Hypertension. 2. Byf-sbmsdct-kbdsmmlpz diabetes. 3. Hyperlipidemia. 4. Status post ERCP and had ampullary growth, but it is found to be benign. 5. History of DVT and has been on anticoagulation for the last 5 years. ALLERGIES: SHE IS ALLERGIC TO ACETAMINOPHEN, OXYCODONE AND PENICILLIN. SOCIAL HISTORY: She lives with her daughter. PHYSICAL EXAMINATION: GENERAL: On examination today, she is awake, alert and oriented, complained of feeling nauseous, complained of having heartburn. VITAL SIGNS: She is afebrile, pulse 82, respirations 18 and blood pressure 132/80. LUNGS: Bilateral fair airflow. No rhonchi or crackle. HEART: S1 and S2 audible. ABDOMEN: Soft, nontender. No rebound. No guarding. NEUROLOGICAL: Patient is awake, alert, oriented, able to communicate. LABORATORY DATA: Blood sugar is 121. ASSESSMENT: 1. Acute cholecystitis. 2. History of deep venous thrombosis. 3. Right hepatic subcapsular collection, status post drainage. 4. Insulin-dependent diabetes. 5. Klebsiella ozaenae urinary tract infection. 6. Resolving cholecystitis. 7. Cholelithiasis. PLAN: We will start the patient on Protonix. We will give her Zofran as needed. We will follow up her CBC, CMP, PT/INR in the a.m. Cindy Martins MD
[2018-08-30] MEDS: Insulin Detemir 100 units/ml Vial (Levemir) SC SCH (22:43)
[2018-08-31] MEDS: Meropenem IV 1 gm in NS 1 GM/50 ML BAG IVPB SCH ×2 (06:15→17:54)
[2018-08-31] MEDS: Pantoprazole 40 mg EC Tab PO SCH (06:19)
[2018-08-31] MEDS: Levothyroxine 125 MCG TAB PO SCH (06:19)
[2018-08-31 06:21] LABS: BASO # 0.03 K/mm3 (0.0-2.0); BASO % 0.4 % (0.0-3.0); EOS # 0.1 (0.0-0.7); EOS % 1.6 % (1.5-5.0); GRAN # 4.8 (1.4-6.5); GRAN % 70.2 % (50.0-68.0); HEMOGLOBIN 9.9 g/dL (12.0-16.0); LYMPH # 1.2 (1.2-3.4); LYMPH % 16.8 % (22.0-35.0); MEAN CELL VOLUME 96.3 fl (80.0-105.0); MEAN CORPUSCULAR HEMOGLOBIN 30.3 pg (25.0-35.0); MEAN CORPUSCULAR HGB CONC 31.4 g/dl (31.0-37.0); MEAN PLATELET VOLUME 10.1 fl (7.0-11.0); MONO # 0.8 (0.1-0.6); RBC 3.27 10^6/uL (3.5-6.1); WHITE BLOOD COUNT 6.8 10^3/uL (4.5-11.0)
[2018-08-31 06:27] LABS: INR 1.8
[2018-08-31 06:46] LABS: ALB/GLOB RATIO 0.7 (1.1-1.8); CALCIUM 9.2 mg/dL (8.4-10.5)
[2018-08-31] MEDS: Insulin Lispro (humaLOG) MEDIUM Coverage SC SCH ×3 (06:49→16:50)
--- NOTE | 2018-08-31 21:00 | PN ---
DATE: 08/31/2018 SUBJECTIVE: The patient is in bed in no acute distress, nontoxic. No fevers and chills. PHYSICAL EXAMINATION: VITAL SIGNS: Temperature is 97, blood pressure is 120/70, respiratory rate of 18. HEENT: Examination of HEENT is unremarkable. NECK: Supple. LUNGS: Decreased breath sounds. HEART: Normal S1, S2. ABDOMEN: Soft, nontender. LABORATORY EXAMINATION: Reveals a white count of 6.8, hemoglobin of 9 and the coagulation is noted. Chemistries reveal a BUN of 19, creatinine of 1.3. Microbiology is noted. ASSESSMENT AND PLAN: An 83-year-old female with status post history of deep venous thrombosis, hypothyroidism, diabetes, hypertension, admitted with sepsis secondary to acute cholecystitis, had an ERCP and sphincterotomy and lithotripsy and biliary stent placement, found to have a subcapsular fluid collection, status post CAT scan-guided drainage on 08/28/2018. Currently on day #12 of meropenem and awaiting for the cultures of the Invasive Radiology aspiration of subcapsular fluid. We will follow with you. Review of orders reveals the meropenem to be active. Shaun Hassan MD
[2018-08-31] MEDS ORDERED: Insulin Lispro 1 UNITS/0.01 ML SC STA ×2 (21:33)
[2018-08-31] MEDS: Insulin Lispro (HUMAlog) HIGH Coverage SC SCH (21:49)
[2018-08-31] MEDS: Insulin Detemir 100 units/ml Vial (Levemir) SC SCH (21:57)
[2018-09-01] MEDS: Meropenem IV 1 gm in NS 1 GM/50 ML BAG IVPB SCH ×2 (06:00→17:21)
[2018-09-01] MEDS: Levothyroxine 125 MCG TAB PO SCH (06:06)
[2018-09-01] MEDS: Pantoprazole 40 mg EC Tab PO SCH (06:06)
[2018-09-01] MEDS: Insulin Lispro (HUMAlog) HIGH Coverage SC SCH ×4 (06:58→21:47)
--- NOTE | 2018-09-01 11:12 | CP.PCM.PCO ---
Physician Communication Note - Physician Communication Note Physician Communication Note: Abd fluid no growth 2nd day/UA-C/S ?contaminant- Repeated NOW
--- NOTE | 2018-09-01 21:44 | CP.PCM.PN ---
Subjective - Date & Time of Evaluation Date of Evaluation: 09/01/18 Time of Evaluation: 09:55 - Subjective Subjective: No abdominal pain, no distress, afebrile. Objective - Vital Signs/Intake and Output Vital Signs (last 24 hours): Temp Pulse Resp BP Pulse Ox 97.8 F 80 14 129/70 96 09/01/18 16:30 09/01/18 17:21 09/01/18 16:30 09/01/18 17:21 09/01/18 16:30 - Medications Medications: Current Medications Amlodipine Besylate (Norvasc) 10 mg PO DAILY [facility]; Protocol Last Admin: 09/01/18 09:50 Dose: 10 mg Meropenem (Merrem Iv 1 Gm Premix) 1 gm in 50 mls @ 100 mls/hr IVPB 0600,1800 [facility] Stop: 09/02/18 06:29 Last Admin: 09/01/18 17:21 Dose: 100 mls/hr Insulin Detemir (Levemir) 15 unit SC HS [facility]; Protocol Last Admin: 08/31/18 21:57 Dose: 15 u Insulin Human Lispro (Humalog High) 0 units SC ACHS [facility]; Protocol Last Admin: 09/01/18 17:20 Dose: 2 u Levothyroxine Sodium (Synthroid) 125 mcg PO 0600 [facility]; Protocol Last Admin: 09/01/18 06:06 Dose: 125 mcg Metoprolol Tartrate (Lopressor) 100 mg PO BRKDIN [facility]; Protocol Last Admin: 09/01/18 17:21 Dose: 100 mg Ondansetron HCl (Zofran Inj) 4 mg IVP Q6H PRN; Protocol PRN Reason: Nausea/Vomiting Last Admin: 08/30/18 13:45 Dose: 4 mg Pantoprazole Sodium (Protonix Ec Tab) 40 mg PO 0600 [facility]; Protocol Last Admin: 09/01/18 06:06 Dose: 40 mg Warfarin Sodium (Coumadin) 5 mg PO 1800 [facility]; Protocol Last Admin: 09/01/18 17:21 Dose: 5 mg - Labs Labs: 08/31/18 06:00 08/31/18 06:00 PT 21.0 SECONDS (9.4-12.5) H 08/31/18 06:00 INR 1.80 08/31/18 06:00 - Constitutional Appears: Chronically Ill - Head Exam Head Exam: NORMAL INSPECTION - Respiratory Exam Respiratory Exam: Decreased Breath Sounds - Cardiovascular Exam Cardiovascular Exam: +S1, +S2 - GI/Abdominal Exam GI & Abdominal Exam: Soft. absent: Tenderness Assessment and Plan - Assessment and Plan (Free Text) Plan: Assessment sepsis due to acute cholecystitis S/P ERCP, sphincterotomy, lithotripsy, biliary stent placement, POD #13 subscapsular fluid collection, R/O abscess S/P IR-guided drainage 08/28/2018 atrial fibrillation history of DVT hypothyroidism HTN DM Plan continue Merrem day 13 14 days pending cultures from the subcapsular fluid follow up biopsy results (of biliary tissue) discussed with Dr. Hopkins
[2018-09-01] MEDS: Insulin Detemir 100 units/ml Vial (Levemir) SC SCH (21:48)
[2018-09-02] MEDS: Meropenem IV 1 gm in NS 1 GM/50 ML BAG IVPB SCH (05:53)
[2018-09-02] MEDS: Levothyroxine 125 MCG TAB PO SCH (05:53)
[2018-09-02] MEDS: Pantoprazole 40 mg EC Tab PO SCH (05:53)
[2018-09-02] MEDS: Insulin Lispro (HUMAlog) HIGH Coverage SC SCH ×4 (07:02→21:44)
[2018-09-02 07:21] LABS: BASO # 0.02 K/mm3 (0.0-2.0); BASO % 0.2 % (0.0-3.0); EOS # 0.1 (0.0-0.7); EOS % 1.2 % (1.5-5.0); GRAN # 5.52 (1.4-6.5); GRAN % 68.7 % (50.0-68.0); HEMOGLOBIN 9.7 g/dL (12.0-16.0); LYMPH # 1.3 (1.2-3.4); LYMPH % 16.5 % (22.0-35.0); MEAN CELL VOLUME 95.6 fl (80.0-105.0); MEAN CORPUSCULAR HEMOGLOBIN 30.6 pg (25.0-35.0); MEAN PLATELET VOLUME 10.2 fl (7.0-11.0); MONO # 1.1 (0.1-0.6); MONO % 13.4 % (1.0-6.0); RBC 3.17 10^6/uL (3.5-6.1); RED CELL DISTRIBUTION WIDTH 13.9 % (11.5-14.5); WHITE BLOOD COUNT 8.1 10^3/uL (4.5-11.0)
[2018-09-02 07:35] LABS: INR 3.34; PROTHROMBIN TIME 39.4 SECONDS (9.4-12.5)
[2018-09-02 07:37] LABS: ALB/GLOB RATIO 0.8 (1.1-1.8); ALBUMIN 3.1 g/dL (3.0-4.8); CALCIUM 9.4 mg/dL (8.4-10.5)
[2018-09-02] MEDS: GlipiZIDE 5 mg SR Tab PO SCH ×2 (08:11→18:11)
--- NOTE | 2018-09-02 08:28 | PN ---
DATE: 09/01/2018 SUBJECTIVE: Patient is an 83-year-old, seen and examined. Denies any fever. No chills. No nausea, vomiting. PHYSICAL EXAMINATION VITAL SIGNS: She is afebrile, pulse 89, respirations 14, blood pressure 129/70. LUNGS: Bilateral fair airflow. No rhonchi or crackle. HEART: S1 and S2 audible. ABDOMEN: Soft, nontender. No rebound. No guarding. Minimal drainage from the subcapsular fluid collection. LABORATORY EXAM: Blood sugar is 259. ASSESSMENT: 1. Sepsis secondary to acute cholecystitis. 2. Klebsiella ozaenae urinary tract infection. 3. Chronic atrial fibrillation. 4. Supratherapeutic Coumadin level. 5. [id number]-tauibqbdn diabetes. PLAN: I will order for CBC, CMP, PT, INR in the a.m. to adjust Coumadin level. Encourage ambulation. We will follow up patient in the a.m. In the meantime, she is on meropenem, and blood sugar seems to be running high. Since patient's oral intake is better, we will start her on her oral hypoglycemic. Cindy Martins MD
--- NOTE | 2018-09-02 17:38 | PN ---
DATE: 09/02/2018 SUBJECTIVE: The patient is in bed, in no acute distress, nontoxic. PHYSICAL EXAMINATION VITAL SIGNS: Temperature is 98, blood pressure is 160/60, respiratory rate is 18. HEENT: Unremarkable. NECK: Supple. LUNGS: Decreased breath sounds. HEART: Normal S1, S2. ABDOMEN: Soft, nontender. LABORATORY DATA: Revealed the patient's white count is 8.1, hemoglobin of 9. Chemistries are noted. Review of orders revealed the patient to be off of antibiotics at this point and meropenem has been discontinued. Microbiology revealed the patient's cultures to be negative. Dr. Martins's notes from yesterday is reviewed. ASSESSMENT AND PLAN: An 83-year-old with sepsis with acute cholecystitis, status post endoscopic retrograde cholangiopancreatography and sphincterotomy, lithotripsy, biliary stent placement, post procedure day number 14, and today is 14th day, she has completed the meropenem therapy, now off of antibiotics. The patient with subcapsular fluid collection. Cultures are negative. History of deep venous thrombosis and case discussed with Dr. Hopkins for possible gallbladder surgery as outpatient. Shaun Hassan MD
[2018-09-02] MEDS: Insulin Detemir 100 units/ml Vial (Levemir) SC SCH (21:47)
--- NOTE | 2018-09-03 00:43 | PN ---
DATE: 09/02/2018 SUBJECTIVE: The patient is 83-year-old. Seen and examined. Doing well. Just came back from therapy. The patient feels tired. Otherwise, doing well. Eating and tolerating. No abdominal pain. PHYSICAL EXAMINATION: VITAL SIGNS: She is afebrile. Pulse 70, respirations 17, blood pressure 120/70. LUNGS: Bilateral fair airflow. No rhonchi or crackle. HEART: S1 and S2 audible. ABDOMEN: Soft, nontender. No rebound. No guarding. NEUROLOGICAL: She is awake, alert, and oriented. Able to communicate. Moves all extremities. EXTREMITIES: Bilateral legs, no edema. LABORATORY EXAM: WBC 8.1, hemoglobin 9.7, hematocrit 30, and platelet 423. PT 39.4, INR 3.34. Chemistry: Sodium 134, potassium 5.4, chloride 102, CO2 26, BUN 20, creatinine 1.2, and blood sugar of 206. ASSESSMENT: 1. Status post acute cholecystitis. 2. Klebsiella ozaenae urinary tract infection. 3. Supratherapeutic PT and INR. 4. Hypertension. 5. Noninsulin-dependent diabetes. PLAN: We will continue the patient on current medication. She seems to be doing well. Encourage physical therapy. Hold Coumadin for today. Follow up PT and INR in a.m. Cindy Martins MD
[2018-09-03] MEDS: Pantoprazole 40 mg EC Tab PO SCH (05:07)
[2018-09-03] MEDS: Levothyroxine 125 MCG TAB PO SCH (05:07)
[2018-09-03 06:58] LABS: INR 3.89
[2018-09-03] MEDS: Insulin Lispro (HUMAlog) HIGH Coverage SC SCH ×4 (06:59→23:00)
[2018-09-03] MEDS: GlipiZIDE 5 mg SR Tab PO SCH ×2 (08:10→17:04)
--- NOTE | 2018-09-03 15:37 | CP.PCM.PN ---
Subjective - Date & Time of Evaluation Date of Evaluation: 09/03/18 Time of Evaluation: 10:30 - Subjective Subjective: Comfortable in bed, no fevers, no abdominal pain. Objective - Vital Signs/Intake and Output Vital Signs (last 24 hours): Temp Pulse Resp BP Pulse Ox 98 F 77 17 126/70 91 L 09/02/18 16:00 09/03/18 08:10 09/02/18 16:00 09/03/18 10:05 09/02/18 16:00 - Medications Medications: Current Medications Amlodipine Besylate (Norvasc) 10 mg PO DAILY [facility]; Protocol Last Admin: 09/03/18 10:05 Dose: 10 mg Glipizide (Glucotrol Xl) 5 mg PO ACBD [facility] Last Admin: 09/03/18 08:10 Dose: 5 mg Insulin Detemir (Levemir) 15 unit SC HS [facility]; Protocol Last Admin: 09/02/18 21:47 Dose: Not Given Insulin Human Lispro (Humalog High) 0 units SC ACHS [facility]; Protocol Last Admin: 09/03/18 12:19 Dose: Not Given Levothyroxine Sodium (Synthroid) 125 mcg PO 0600 [facility]; Protocol Last Admin: 09/03/18 05:07 Dose: 125 mcg Metoprolol Tartrate (Lopressor) 100 mg PO BRKDIN [facility]; Protocol Last Admin: 09/03/18 08:10 Dose: 100 mg Ondansetron HCl (Zofran Inj) 4 mg IVP Q6H PRN; Protocol PRN Reason: Nausea/Vomiting Last Admin: 08/30/18 13:45 Dose: 4 mg Pantoprazole Sodium (Protonix Ec Tab) 40 mg PO 0600 [facility]; Protocol Last Admin: 09/03/18 05:07 Dose: 40 mg Repaglinide (Prandin) 2 mg PO TID [facility] Last Admin: 09/03/18 14:30 Dose: Not Given - Labs Labs: 09/02/18 06:30 09/02/18 06:30 PT 46.0 SECONDS (9.4-12.5) H 09/03/18 05:45 INR 3.89 H* 09/03/18 05:45 - Constitutional Appears: No Acute Distress, Chronically Ill - Head Exam Head Exam: NORMAL INSPECTION - Respiratory Exam Respiratory Exam: Decreased Breath Sounds - Cardiovascular Exam Cardiovascular Exam: +S1, +S2 - GI/Abdominal Exam GI & Abdominal Exam: Soft. absent: Tenderness Assessment and Plan - Assessment and Plan (Free Text) Plan: Assessment S/P sepsis due to acute cholecystitis S/P ERCP, sphincterotomy, lithotripsy, biliary stent placement, POD #15 subscapsular fluid collection, R/O abscess S/P IR-guided drainage 08/28/2018 atrial fibrillation history of DVT hypothyroidism HTN DM Plan completed 14 days of Merrem - continue to monitor clinically off antibiotics discussed with Dr. Hopkins
[2018-09-03] MEDS: Ciprofloxacin/Dexamethasone OTIC SUSP AU SCH (17:04)
--- NOTE | 2018-09-03 18:09 | PN ---
DATE: 09/03/2018 SUBJECTIVE: The patient is an 83-year-old female, seen and examined, complains of generalized weakness, cam back from therapy. PHYSICAL EXAMINATION: VITAL SIGNS: She is afebrile, pulse 77, respirations 18, blood pressure 126/70. LUNGS: Bilateral fair airflow. No rhonchi or crackles. HEART: S1 and S2 audible. ABDOMEN: Soft, nontender. No rebound. No guarding. NEUROLOGICAL: The patient is awake, alert, oriented, communicative. LABORATORY EXAMINATION: Her PT is 46, INR 3.89. ASSESSMENT: 1. Status post acute cholecystitis. 2. Klebsiella ozaenae urinary tract infection. 3. Hypertension. 4. Jqh-voleijl-sglcmcwmu diabetes. PLAN: The patient is off of antibiotics. We will hold Coumadin. Follow up PT and INR in the a.m. Continue physical therapy. We will follow up. Cindy Martins MD
[2018-09-03] MEDS: Insulin Detemir 100 units/ml Vial (Levemir) SC SCH (23:00)
[2018-09-04] MEDS: Levothyroxine 125 MCG TAB PO SCH (05:29)
[2018-09-04] MEDS: Pantoprazole 40 mg EC Tab PO SCH (05:29)
[2018-09-04] MEDS: Insulin Lispro (HUMAlog) HIGH Coverage SC SCH ×4 (06:54→21:48)
[2018-09-04] MEDS: GlipiZIDE 5 mg SR Tab PO SCH ×2 (08:30→17:00)
[2018-09-04] MEDS: Ciprofloxacin/Dexamethasone OTIC SUSP AU SCH ×2 (10:14→17:45)
--- NOTE | 2018-09-04 10:52 | CP.PCM.PCO ---
Physician Communication Note - Physician Communication Note Physician Communication Note: Dx GB Infection(Resolving)/No UTI-Subcapsular Hepatic Infection/OK DC
--- NOTE | 2018-09-04 20:11 | PN ---
DATE: 09/04/2018 SUBJECTIVE: The patient is seen earlier today in room 321. She appears to be comfortable. No fevers, no chills, nontoxic. PHYSICAL EXAMINATION: VITAL SIGNS: Temperature of 98.6, blood pressure is 133/68, respiratory rate of 18, heart rate of 76. HEENT: Examination of HEENT is unremarkable. NECK: Supple. CARDIOPULMONARY: Normal S1, S2. LUNGS: Have decreased breath sounds. ABDOMEN: Soft. LABORATORY DATA: Laboratory examination reveals a white count of 8.1, hemoglobin of 9. BUN of 20, creatinine of 1.2. Microbiology is noted. The blood cultures are negative. ASSESSMENT AND PLAN: The patient is an 83-year-old with status post sepsis due to acute cholecystitis, status post endoscopic retrograde cholangiopancreatography, sphincterotomy, lithotripsy, biliary stent placement and the postoperative procedure day #16 with a subcapsular fluid collection. Cultures negative, completed meropenem therapy for 14 days, currently now. Review of orders reveals the patient to be off antibiotics. The patient is at risk for nosocomial infections. Shaun Hassan MD
--- NOTE | 2018-09-04 20:42 | PN ---
DATE: 09/04/2018 SUBJECTIVE: The patient is an 83-year-old, seen and examined. Doing well. No nausea or vomiting. No diarrhea. Eating and tolerating. PHYSICAL EXAMINATION VITAL SIGNS: The patient is afebrile, pulse 76, respirations 18, and blood pressure 133/68. LUNGS: Bilateral fair airflow. No rhonchi or crackle. HEART: S1 and S2 audible. ABDOMEN: Soft and nontender. No rebound. No guarding. NEUROLOGIC: The patient is awake, alert, oriented, and communicative. Able to ambulate. LABORATORY DATA: Blood sugar is 98. ASSESSMENT AND PLAN: 1. Sepsis secondary to acute cholecystitis. 2. Klebsiella ozaenae urinary tract infection. 3. Subcapsular hematoma status post drainage. 4. Hypertension. 5. Insulin-dependent diabetes. 6. Hypothyroidism. PLAN: Coumadin is on hold. I will order for PT/INR and CBC, CMP for the morning and adjust her Coumadin dose. Cindy Martins MD
[2018-09-04] MEDS: Insulin Detemir 100 units/ml Vial (Levemir) SC SCH (21:48)
[2018-09-05] MEDS: Pantoprazole 40 mg EC Tab PO SCH (05:23)
[2018-09-05] MEDS: Levothyroxine 125 MCG TAB PO SCH (05:23)
[2018-09-05] MEDS: Insulin Lispro (HUMAlog) HIGH Coverage SC SCH ×3 (06:43→22:05)
[2018-09-05 07:04] LABS: BASO # 0.05 K/mm3 (0.0-2.0); BASO % 0.7 % (0.0-3.0); EOS # 0.2 (0.0-0.7); EOS % 2.2 % (1.5-5.0); GRAN # 4.18 (1.4-6.5); GRAN % 61.5 % (50.0-68.0); HEMOGLOBIN 8.6 g/dL (12.0-16.0); LYMPH # 1.7 (1.2-3.4); LYMPH % 25.3 % (22.0-35.0); MEAN CELL VOLUME 95.5 fl (80.0-105.0); MEAN CORPUSCULAR HGB CONC 31.4 g/dl (31.0-37.0); MONO # 0.7 (0.1-0.6); MONO % 10.3 % (1.0-6.0); RBC 2.87 10^6/uL (3.5-6.1); RED CELL DISTRIBUTION WIDTH 13.7 % (11.5-14.5); WHITE BLOOD COUNT 6.8 10^3/uL (4.5-11.0)
[2018-09-05 07:35] LABS: INR 3.84; PROTHROMBIN TIME 45.4 SECONDS (9.4-12.5)
[2018-09-05] MEDS: GlipiZIDE 5 mg SR Tab PO SCH ×3 (08:38→18:27)
[2018-09-05] MEDS: Ciprofloxacin/Dexamethasone OTIC SUSP AU SCH ×2 (10:28→18:17)
--- NOTE | 2018-09-05 13:29 | CP.PCM.PN ---
Subjective - Date & Time of Evaluation Date of Evaluation: 09/05/18 Time of Evaluation: 10:25 - Subjective Subjective: Afebrile, comfortable, eating ok, no nausea, no abdominal pain. Objective - Vital Signs/Intake and Output Vital Signs (last 24 hours): Temp Pulse Resp BP Pulse Ox 98.6 F 72 18 104/62 96 09/04/18 16:00 09/05/18 08:39 09/04/18 16:00 09/05/18 10:30 09/04/18 16:00 Intake and Output: 09/05/18 09/05/18 06:59 18:59 Intake Total 420 Balance 420 - Medications Medications: Current Medications Acetaminophen (Tylenol 325mg Tab) 650 mg PO Q6H PRN PRN Reason: Pain, Mild (1-3) Last Admin: 09/04/18 23:54 Dose: 650 mg Amlodipine Besylate (Norvasc) 10 mg PO DAILY [facility]; Protocol Last Admin: 09/05/18 10:30 Dose: 10 mg Ciprofloxacin/Dexamethasone (Ciprodex Otic) 2 drop AU BID [facility] Last Admin: 09/05/18 10:28 Dose: 2 drop Glipizide (Glucotrol Xl) 5 mg PO ACBD [facility] Last Admin: 09/05/18 08:38 Dose: 5 mg Insulin Detemir (Levemir) 15 unit SC HS [facility]; Protocol Last Admin: 09/04/18 21:48 Dose: Not Given Insulin Human Lispro (Humalog High) 0 units SC ACHS [facility]; Protocol Last Admin: 09/05/18 06:43 Dose: Not Given Levothyroxine Sodium (Synthroid) 125 mcg PO 0600 [facility]; Protocol Last Admin: 09/05/18 05:23 Dose: 125 mcg Metoprolol Tartrate (Lopressor) 100 mg PO BRKDIN [facility]; Protocol Last Admin: 09/05/18 08:39 Dose: 100 mg Ondansetron HCl (Zofran Inj) 4 mg IVP Q6H PRN; Protocol PRN Reason: Nausea/Vomiting Last Admin: 08/30/18 13:45 Dose: 4 mg Pantoprazole Sodium (Protonix Ec Tab) 40 mg PO 0600 [facility]; Protocol Last Admin: 09/05/18 05:23 Dose: 40 mg Repaglinide (Prandin) 2 mg PO TID [facility] Last Admin: 09/05/18 10:31 Dose: 2 mg - Labs Labs: 09/05/18 06:30 09/02/18 06:30 PT 45.4 SECONDS (9.4-12.5) H 09/05/18 06:30 INR 3.84 H* 09/05/18 06:30 - Constitutional Appears: Chronically Ill - Head Exam Head Exam: NORMAL INSPECTION - Neck Exam Neck Exam: absent: Meningismus - Respiratory Exam Respiratory Exam: Decreased Breath Sounds - Cardiovascular Exam Cardiovascular Exam: +S1, +S2 - GI/Abdominal Exam GI & Abdominal Exam: Soft. absent: Tenderness Assessment and Plan - Assessment and Plan (Free Text) Plan: Assessment S/P sepsis due to acute cholecystitis S/P ERCP, sphincterotomy, lithotripsy, biliary stent placement, POD #17 subscapsular fluid collection, R/O abscess S/P IR-guided drainage 08/28/2018 atrial fibrillation history of DVT hypothyroidism HTN DM Plan completed 14 days of Merrem - continue to monitor clinically off antibiotics discussed with Dr. Hopkins previously
--- NOTE | 2018-09-05 18:22 | PN ---
DATE: 09/05/2018 SUBJECTIVE: The patient is an 83-year-old female seen and examined lying in bed, seemed to be comfortable, participating in therapy, eating and tolerating. No nausea, vomiting. No fever. No chills. PHYSICAL EXAMINATION: VITAL SIGNS: She is afebrile. Pulse 72, respirations 18, blood pressure 104/62. LUNGS: Bilateral fair airflow. No rhonchi or crackle. HEART: S1 and S2 audible. ABDOMEN: Soft, obese, and nontender. No rebound. No guarding. NEUROLOGICAL: She is awake, alert, oriented, and communicative. LABORATORY DATA: WBC is 6.8, hemoglobin 8.6, hematocrit 27.4, and platelet of 442. PT 45, chloride 4, and INR 3.854. Chemistry: Blood sugar is . ASSESSMENT: 1. Status post acute cholecystitis. 2. Klebsiella ozaenae urinary tract infection, resolved. 3. Deconditioning and difficulty walking. 4. Status post subcapsular hepatic hematoma, drainage was dark color. No leticia blood was aspirated. 5. Dhc-zavzcox-zjtokhvgg diabetes. PLAN: The patient completed the course of antibiotics. We will monitor blood sugar and continue current medications. Discharge plan on Saturday. Cindy Martins MD
[2018-09-05] MEDS: Insulin Detemir 100 units/ml Vial (Levemir) SC SCH (22:11)
[2018-09-06] MEDS: Pantoprazole 40 mg EC Tab PO SCH (05:37)
[2018-09-06] MEDS: Levothyroxine 125 MCG TAB PO SCH (05:37)
[2018-09-06] MEDS: Insulin Lispro (HUMAlog) HIGH Coverage SC SCH ×4 (07:14→23:00)
[2018-09-06] MEDS: GlipiZIDE 5 mg SR Tab PO SCH ×2 (08:31→17:29)
[2018-09-06 10:17] VITALS: RESP 18
[2018-09-06] MEDS ORDERED: Naproxen 275 mg Tab PO PRN (10:28)
[2018-09-06] MEDS: Ciprofloxacin/Dexamethasone OTIC SUSP AU SCH ×2 (11:30→17:30)
[2018-09-06] MEDS: Naproxen 275 mg Tab PO PRN ×2 (11:31→21:39)
[2018-09-06] MEDS: Insulin Detemir 100 units/ml Vial (Levemir) SC SCH (23:00)
--- NOTE | 2018-09-07 00:28 | PN ---
DATE: 09/06/2018 SUBJECTIVE: The patient is in bed, in no acute distress, nontoxic. PHYSICAL EXAMINATION VITAL SIGNS: Temperature is 97, blood pressure is 115/60, respiratory rate 19, heart rate of 92. HEENT: Unremarkable. NECK: Supple. LUNGS: Have decreased breath sounds. HEART: Normal S1, S2. ABDOMEN: Soft. LABORATORY EXAMINATION: Reveals a white count of 6.8, hemoglobin of 8. Chemistries are noted. ASSESSMENT AND PLAN: An 83-year-old female, who was seen earlier today in room 321, who states she wants to go home, was initially admitted with sepsis with acute cholecystitis, status post endoscopic retrograde cholangiopancreatography, sphincterotomy, lithotripsy, biliary stent placement, postprocedure day #8, was found to have a subcapsular fluid collection, Interventional Radiology drainage, cultures negative, atrial fibrillation, history of deep venous thrombosis, hypertension, hypothyroidism, diabetes. She received meropenem for 14 days, currently now off of antibiotics. Review of orders confirms the patient to be off of antibiotics, and the patient will need further Gastroenterology and Surgical evaluation. Shaun Hassan MD
[2018-09-07] MEDS: Pantoprazole 40 mg EC Tab PO SCH (06:08)
[2018-09-07] MEDS: Levothyroxine 125 MCG TAB PO SCH (06:08)
[2018-09-07] MEDS: Insulin Lispro (HUMAlog) HIGH Coverage SC SCH ×2 (06:48→11:30)
[2018-09-07] MEDS: GlipiZIDE 5 mg SR Tab PO SCH (07:59)
[2018-09-07 08:17] LABS: INR 3.58
[2018-09-07 08:18] LABS: PROTHROMBIN TIME 42.3 SECONDS (9.4-12.5)
[2018-09-07] MEDS: Ciprofloxacin/Dexamethasone OTIC SUSP AU SCH (09:25)
[2018-09-07 10:31] VITALS: BP 120/65; PULSE 79; TEMP 98.2; O2SAT 98
--- NOTE | 2018-09-07 13:17 | PN ---
DATE: 09/07/2018 HISTORY OF PRESENT ILLNESS: Ms. Villar is an 83-year-old female, admitted to the hospital with coagulopathy that was reversed. She was also treated for acute cholecystitis with IV antibiotics, found to have multidrug-resistant Klebsiella. She was transferred to ICU for physical therapy. She has . PAST MEDICAL HISTORY: Hypertension, diabetes mellitus, gallstones, status post ERCP and biopsy of the mass, history of DVT, on anticoagulation. ALLERGIES: TYLENOL, OXYCODONE, PENICILLIN. SOCIAL HISTORY: Lives with her daughter. PHYSICAL EXAMINATION: GENERAL: Comfortable in bed, awake, alert and oriented. VITAL SIGNS: Afebrile. Temperature 98.7, heart rate is 80 per minute, respiratory rate 15 per minute, blood pressure 120/70. HEENT: Pallor positive. NECK: No lymphadenopathy. CHEST: Air entry present, equal bilateral. No added sound. CARDIOVASCULAR: S1 and S2 normal. No murmur. No gallop. ABDOMEN: Soft, nontender. No hepatosplenomegaly. EXTREMITY: No edema. MEDICATIONS: Reviewed. ASSESSMENT: 1. Acute cholecystitis, resolved. 2. History of deep venous thrombosis. 3. Right hepatic subcapsular collection. 4. Diabetes mellitus type 2. 5. Klebsiella urinary tract infection, resolving. 6. Cholecystitis and cholelithiasis. 7. Coagulopathy. 8. INR elevated at 3.5. PLAN: Hold anticoagulation, she is on ciprofloxacin/dexamethasone otic drop. Currently off antibiotics. Dr. Hassan following from Infectious Disease. Norvasc 10 mg daily, insulin 15 units subcutaneously every bedtime, Synthroid 125 mcg daily, Naprosyn 550 b.i.d., Zofran 4 mg every 6 hours, Prandin 2 mg p.o. t.i.d. Erendira Dai MD
--- NOTE | 2018-09-07 13:31 | PN ---
DATE: 09/03/2018 SUBJECTIVE: The patient is in bed in no acute distress. PHYSICAL EXAMINATION: VITAL SIGNS: Temperature is 97, blood pressure is 117/60, respiratory rate of 18. HEENT: Unremarkable. NECK: Supple. LUNGS: Have decreased breath sounds. HEART: Normal S1, S2. ABDOMEN: Soft, nontender. LABORATORY EXAMINATION: Reviewed. Cultures are reviewed. ASSESSMENT AND PLAN: This is an 83-year-old female who was seen earlier today in [facility] [place]. She is asking about going home, was admitted with sepsis, acute cholecystitis, status post endoscopic retrograde cholangiopancreatography, sphincterotomy, lithotripsy, biliary stent placement, postprocedure day #9. On imaging CT scan was found to have a subcapsular fluid collection, had an intervention radiology, drainage cultures were negative, now currently off of antibiotics. The patient is status post meropenem treatment for 14 days. The patient for possible discharge today. Off of antibiotics, afebrile, doing much better to follow up with surgery and GI as outpatient. Shaun Hassan MD
== END 2018-09-07 14:05 | disposition home or self-care (01) | DRG 872 ==
LOC: TRCU 14:03
PROVIDERS: ADMIT Internal Medicine; ATTEND Internal Medicine
PROC: F07Z9FZ Gait Training/Functional Ambulation Treatment using Assistive, Adaptive, Supportive or Protective Equipment (ICD-10-PCS; principal; 2018-08-30)
PROC: F08Z4FZ Home Management Treatment using Assistive, Adaptive, Supportive or Protective Equipment (ICD-10-PCS; 2018-08-31)
DX: A41.9 Sepsis, unspecified organism (principal); K80.00 Calculus of gallbladder with acute cholecystitis without obstruction; N39.0 Urinary tract infection, site not specified; I10 Essential (primary) hypertension; Z79.2 Long term (current) use of antibiotics; E11.9 Type 2 diabetes mellitus without complications; E03.9 Hypothyroidism, unspecified; I48.2 Chronic atrial fibrillation; B96.1 Klebsiella pneumoniae [K. pneumoniae] as the cause of diseases classified elsewhere; R26.2 Difficulty in walking, not elsewhere classified; E78.5 Hyperlipidemia, unspecified; Z98.890 Other specified postprocedural states; Z16.24 Resistance to multiple antibiotics; Z86.718 Personal history of other venous thrombosis and embolism; Z79.4 Long term (current) use of insulin; Z79.01 Long term (current) use of anticoagulants

== ENCOUNTER 2018-09-18 21:50 | Emergency (ER) | payer MEDICARE ==
[2018-09-18 21:51] VITALS: BMI 29.7
[2018-09-18] MEDS: Sodium Chloride 0.9% 1,000 ML IV STA (22:26)
--- NOTE | 2018-09-18 22:37 | ED PDOC ---
Arrival/HPI <GaryDuane - Last Filed: 09/18/18 23:41> - General Historian: Patient, Family - History of Present Illness Narrative History of Present Illness (Text): 09/18/18 22:29 83 year old F with Past medical history of Hypertension, NIDDM, Hypercholest erolemia, DVT, s/p ERCP with biliary stent & lithotripsy presents today with daughter with complaints of nausea and vomiting for 1 day. She reports she hasn't been able tolerate food or liquids throughout the day, however currently denies all complaints. Daughter at bedside reports pt had a fever at home which prompted visit to emergency department . Pt was previously on coumadin for DVT prophylaxis, however has been on hold since discharge, and was scheduled for appointment today with PMD, however was unable to go d/t nausea/vomiting. Currently, patient denies fevers, chills, headache, dizziness, chest pain, palpitations, shortness of breath, nausea, vomiting, constipation, diarrhea, dysuria. Time/Duration: Prior to Arrival Symptom Onset: Gradual Symptom Course: Improving Context: Sitting Associated Symptoms (Text): 09/18/18 22:41 nausea/vomiting <Frandy Tomas - Last Filed: 09/19/18 01:37> - General Chief Complaint: Fever Past Medical History - Provider Review Nursing Documentation Reviewed: Yes - Infectious Disease Hx of Infectious Diseases: None - Tetanus Immunization Tetanus Immunization: Unknown - Cardiac Hx Cardiac Disorders: Yes (Chronic Afib) Hx Hypertension: Yes - Pulmonary Hx Respiratory Disorders: No - Neurological Hx Neurological Disorder: No - HEENT Hx HEENT Disorder: No - Renal Hx Renal Disorder: No - Endocrine/Metabolic Hx Diabetes Mellitus Type 2: Yes - Hematological/Oncological Hx Blood Disorders: No - Integumentary Hx Dermatological Disorder: No - Musculoskeletal/Rheumatological Hx Falls: Yes (past) - Gastrointestinal Hx Gastrointestinal Disorders: Yes (r abd abcess) - Genitourinary/Gynecological Hx Reproductive Disorders: Yes (hx of hyst) - Psychiatric Hx Psychophysiologic Disorder: No Hx Substance Use: No - Surgical History Hx Orthopedic Surgery: Yes - Anesthesia Hx Anesthesia Reactions: No Hx Malignant Hyperthermia: No <Frandy Tomas - Last Filed: 09/19/18 01:37> Family/Social History - Physician Review Nursing Documentation Reviewed: Yes Family/Social History: Unknown Family HX Smoking Status: Never Smoked Hx Alcohol Use: No Hx Substance Use: No <Frandy Tomas - Last Filed: 09/19/18 01:37> Allergies/Home Meds <Duane Vega - Last Filed: 09/18/18 23:41> <Frandy Tomas - Last Filed: 09/19/18 01:37> Allergies/Adverse Reactions: Allergies acetaminophen [From Percocet] Allergy (Verified 09/18/18 21:51) DIZZINESS oxycodone [From Percocet] Allergy (Verified 09/18/18 21:51) DIZZINESS Penicillins Allergy (Verified 09/18/18 21:51) DIZZINESS Home Medications: Home Meds Medication Instructions Recorded Confirmed Calcium Carbonate/Vitamin D3 600 mg PO DAILY 08/19/18 09/18/18 [Calcium 600+D Softgel] Glipizide [Glipizide ER] 2.5 mg PO DAILY 08/19/18 09/18/18 Home Med 5 mg PO DAILY 08/19/18 09/18/18 Levothyroxine [Synthroid] 100 mcg PO DAILY 08/19/18 09/18/18 Sodium Bicarbonate Tab 650 mg PO TID 08/19/18 09/18/18 amLODIPine [Norvasc] 5 mg PO DAILY 08/29/18 09/18/18 Review of Systems - Physician Review All systems were reviewed & negative as marked: Yes - Review of Systems Constitutional: Normal Eyes: Normal ENT: Normal Respiratory: Normal Cardiovascular: Normal Gastrointestinal: Nausea, Vomiting Genitourinary Female: Normal Musculoskeletal: Normal Skin: Normal Neurological: Normal Endocrine: Normal Hemo/Lymphatic: Normal Psychiatric: Normal <Frandy Tomas Last Filed: 09/19/18 01:37> Physical Exam Vital Signs Temp Pulse Resp BP Pulse Ox 09/18/18 23:02 100.6 F H 88 18 130/61 99 09/18/18 21:55 99.5 F 92 H 16 133/63 100 <GaryDuane - Last Filed: 09/18/18 23:41> Vital Signs Reviewed: Yes Vital Signs Temp Pulse Resp BP Pulse Ox 09/18/18 21:55 99.5 F 92 H 16 133/63 100 Temperature: Afebrile Blood Pressure: Normal Pulse: Regular Respiratory Rate: Normal Appearance: Positive for: Well-Appearing, Non-Toxic, Comfortable Pain Distress: None Mental Status: Positive for: Alert and Oriented X 3 Finger Stick Blood Glucose: 318 - Systems Exam Head: Present: Atraumatic, Normocephalic Pupils: Present: PERRL Extroacular Muscles: Present: EOMI Conjunctiva: Present: Normal Mouth: Present: Moist Mucous Membranes Neck: Present: Normal Range of Motion Respiratory/Chest: Present: Clear to Auscultation, Good Air Exchange. No: Respiratory Distress, Accessory Muscle Use Cardiovascular: Present: Regular Rate and Rhythm, Normal S1, S2. No: Murmurs Abdomen: Present: Normal Bowel Sounds, Scars (well healed scar noted in RUQ). No: Tenderness, Distention, Peritoneal Signs, Rebound, Guarding Back: Present: Normal Inspection Upper Extremity: Present: Normal Inspection. No: Cyanosis, Edema Lower Extremity: Present: Normal Inspection. No: Edema Neurological: Present: GCS=15, CN II-XII Intact, Speech Normal Skin: Present: Warm, Dry, Normal Color. No: Rashes Psychiatric: Present: Alert, Oriented x 3, Normal Insight, Normal Concentration <Frandy Tomas - Last Filed: 09/19/18 01:37> Medical Decision Making ED Course and Treatment: Progress Notes 09/18/18 23:11 Labs reviewed with profound hyperglycemia of 315 noted. ABG and bicarbonate WNL. No evidence of DKA/HHC. Will order insulin SC. Rapid flu negative. Elevated BNP noted. CXR shows no evidence of cardiomegaly, vascular congestion or focal consolidation. Elevated creatinine noted to be within baseline. 09/18/18 23:41 Shared decision making discussion of risk vs benefits of going home with patient and daughter wishing to go home and continue conservative management at home. Patient understands she is to be vigilant on any warning symptoms and seek immediate medical attention if needed. Scripts provided. She is stable for discharge. - Lab Interpretations Lab Results: 09/18/18 22:20 09/18/18 22:20 Lab Results 09/18/18 22:20: Influenza Typ A,B (EIA) Negative for flu a/b 09/18/18 22:20: Sodium 133, Chloride 100, Potassium 3.8, Carbon Dioxide 22, Anion Gap 15, BUN 19, Creatinine 1.5 H, Est GFR ( Amer) 40, Est GFR (Non- Af Amer) 33, Random Glucose 315 H* D, Calcium 8.5, Phosphorus 2.4 L, Magnesium 1.5 L, Total Bilirubin 0.6, AST 16, ALT 12, Alkaline Phosphatase 118, Troponin I 0.05 D, NT-Pro-B Natriuret Pep 36187 H, Total Protein 7.0, Albumin 3.3, Globulin 3.8, Albumin/Globulin Ratio 0.9 L 09/18/18 22:20: pO2 143 H, VBG pH 7.43, VBG pCO2 35.0 L, VBG HCO3 23.2, VBG Total CO2 24.3, VBG O2 Sat (Calc) 99.4 H, VBG Base Excess -0.6 L, VBG Potassium 4.0, Sodium 134.0, Chloride 101.0, Glucose 337 H, Lactate 1.3, FiO2 21.0, Venous Blood Potassium 4.0 09/18/18 22:20: PT 16.0 H, INR 1.39, APTT 48.1 H 09/18/18 22:20: WBC 6.6, RBC 2.69 L, Hgb 8.0 L, Hct 24.6 L, MCV 91.4 D, MCH 29.7, MCHC 32.5, RDW 14.1, Plt Count 226, MPV 10.2, Gran % 70.9 H, Lymph % ( Auto) 14.3 L, [place] % (Auto) 14.6 H, Eos % (Auto) 0.2 L, Baso % (Auto) 0.0, Gran # 4.67, Lymph # (Auto) 0.9 L, [place] # (Auto) 1.0 H, Eos # (Auto) 0.0, Baso # (Auto) 0.00, ESR Pending - RAD Interpretation Radiology Orders: 09/18/18 21:53 CHEST PORTABLE [RAD] Stat - Medication Orders Current Medication Orders: Sodium Chloride (Sodium Chloride 0.9%) 1,000 mls @ 999 mls/hr IV .Q1H1M STA Stop: 09/19/18 00:08 Insulin Human Regular (Humulin R) 6 units SC STAT STA Stop: 09/18/18 23:09 Discontinued Medications Sodium Chloride (Sodium Chloride 0.9%) 1,000 mls @ 999 mls/hr IV .Q1H1M STA Stop: 09/18/18 22:55 Last Admin: 09/18/18 22:26 Dose: 999 mls/hr eMAR Start Stop Document 09/18/18 22:26 CNR (Rec: 09/18/18 22:26 CNR [id number]) Intravenous Solution Start Date 09/18/18 Start Time 22:26 End Date 09/18/18 End time 23:26 Total Infusion Time 60 Ondansetron HCl (Zofran Inj) 4 mg IVP STAT STA Stop: 09/18/18 22:32 Last Admin: 09/18/18 22:44 Dose: 4 mg IVP Administration Document 09/18/18 22:44 CNR (Rec: 09/18/18 22:45 CNR [id number]) Charges for Administration # of IVP Administrations 1 <Duane Vega - Last Filed: 09/18/18 23:41> ED Course and Treatment: 09/18/18 22:45 Impression: 83 year old F with Past medical history of Hypertension, NIDDM, Hypercholesterolemia, DVT, recently admitted for cholecystitis Plan: Labs EKG Chest xray Urinalysis blood/urine cultures Reassess & Dispo Differential diagnoses included but not limited to: Nausea/vomiting Sepsis Diabetes Prior Visits: Notes & results from prior visits were reviewed. Pt last seen in emergency department on 08/19/18 and admitted for cholecystitis, UTI & sepsis. Pt underwent sphincterotomy with extraction of stone and biliary stent placement. Progress Note: 09/18/18 23:50 ESR noted to be elevated, however pt reports no complaints. Pt reports multiple times that she "feels fine" and would like to go home. - RAD Interpretation Radiology Orders: 09/18/18 21:53 CHEST PORTABLE [RAD] Stat - Medication Orders Current Medication Orders: Sodium Chloride (Sodium Chloride 0.9%) 1,000 mls @ 999 mls/hr IV .Q1H1M STA Stop: 09/18/18 22:55 Last Admin: 09/18/18 22:26 Dose: 999 mls/hr eMAR Start Stop Document 09/18/18 22:26 CNR (Rec: 09/18/18 22:26 CNR [id number]) Intravenous Solution Start Date 09/18/18 Start Time 22:26 End Date 09/18/18 End time 23:26 Total Infusion Time 60 <Frandy Tomas - Last Filed: 09/19/18 01:37> Disposition/Present on Arrival - Disposition Have Diagnosis and Disposition been Completed?: Yes Disposition Time: 23:45 Patient Plan: Discharge <Duane Vega - Last Filed: 09/18/18 23:41> - Present on Arrival Any Indicators Present on Arrival: Yes History of DVT/PE: Yes History of Uncontrolled Diabetes: No Urinary Catheter: No History of Decub. Ulcer: No History Surgical Site Infection Following: None - Disposition Have Diagnosis and Disposition been Completed?: Yes <Frandy Tomas - Last Filed: 09/19/18 01:37> - Disposition Diagnosis: Viral gastritis Disposition: HOME/ ROUTINE Condition: STABLE Discharge Instructions (ExitCare): Gastritis (DC) Print Language: COLOMBI[place] Additional Instructions: Please follow up with your PCP in 1-2 days for reevaluation of INR & Coumadin therapy following this visit to the Emergency Room Please take Zofran as needed for nausea/emesis Please seek immediate medical attention and return to the Emergency Room if worsening symptoms persist. Prescriptions: Ondansetron ODT [Zofran ODT] 4 mg PO Q6H #4 odt Referrals: Irene Bishop DO [Family Provider] - Follow up with primary Kali Lux MD [Staff Provider] - Follow up with primary Forms: [employer] ([place])
[2018-09-18 22:44] LABS: VENOUS BLOOD GAS BASE EXCESS -0.6 mmol/L (0.0-2.0); VENOUS BLOOD GAS PO2 143 mm/Hg (30-55); VENOUS BLOOD PH 7.43 (7.32-7.43)
[2018-09-18 22:51] LABS: EOS % 0.2 % (1.5-5.0); GRAN # 4.67 (1.4-6.5); GRAN % 70.9 % (50.0-68.0); LYMPH # 0.9 (1.2-3.4); LYMPH % 14.3 % (22.0-35.0); MEAN CELL VOLUME 91.4 fl (80.0-105.0); MEAN CORPUSCULAR HEMOGLOBIN 29.7 pg (25.0-35.0); MEAN CORPUSCULAR HGB CONC 32.5 g/dl (31.0-37.0); MEAN PLATELET VOLUME 10.2 fl (7.0-11.0); MONO % 14.6 % (1.0-6.0); PLATELET COUNT 226 10^3/uL (120.0-450.0); RBC 2.69 10^6/uL (3.5-6.1); RED CELL DISTRIBUTION WIDTH 14.1 % (11.5-14.5); WHITE BLOOD COUNT 6.6 10^3/uL (4.5-11.0)
[2018-09-18 22:55] LABS: INR 1.39; PARTIAL THROMBOPLASTIN TIME 48.1 Seconds (25.1-36.5)
[2018-09-18 23:03] VITALS: RESP 18
[2018-09-18 23:06] LABS: TROPONIN I 0.05 ng/mL
[2018-09-18 23:07] LABS: ALB/GLOB RATIO 0.9 (1.1-1.8); ALBUMIN 3.3 g/dL (3.0-4.8); CALCIUM 8.5 mg/dL (8.4-10.5)
[2018-09-18] MEDS: Insulin Regular 1 UNITS/0.01 ML ML SC STA (23:21)
[2018-09-18 23:49] LABS: ERYTHROCYTE SEDIMENTATION RATE > 150 mm/hr (0.0-20.0)
[2018-09-19] MEDS: Sodium Chloride 0.9% 1,000 ML IV STA (01:10)
[2018-09-19 01:24] VITALS: BP 110/69; PULSE 74; TEMP 98.2; O2SAT 97
--- NOTE | 2018-09-19 09:10 | RAD ---
Date of service: 09/18/2018 HISTORY: Sepsis Patient COMPARISON: 08/19/2018 FINDINGS: LUNGS: No active pulmonary disease. PLEURA: No significant pleural effusion identified, no pneumothorax apparent. CARDIOVASCULAR: Aortic calcification Normal cardiac size. No pulmonary vascular congestion. OSSEOUS STRUCTURES: No significant abnormalities. VISUALIZED UPPER ABDOMEN: Normal. OTHER FINDINGS: None. IMPRESSION: No active disease.
== END 2018-09-19 01:14 | disposition home or self-care (01) ==
LOC: ED 21:50
DX: A08.4 Viral intestinal infection, unspecified (principal); I10 Essential (primary) hypertension; E11.9 Type 2 diabetes mellitus without complications; E78.00 Pure hypercholesterolemia, unspecified; Z86.718 Personal history of other venous thrombosis and embolism
CPT/HCPCS: 71045; 80053; 82803; 82948; 83735; 83880; 84100; 84484; 85025; 85610; 85651; 85730; 87040; 87804; 96361; 96374; 99284; J2405; J7030

== ENCOUNTER 2018-09-22 11:33 | Emergency (ER) | payer MEDICARE ==
[2018-09-22 11:41] VITALS: RESP 18
[2018-09-22] MEDS ORDERED: Sodium Chloride 0.9% 1,000 ML IV STA (11:54)
--- NOTE | 2018-09-22 12:14 | ED PDOC ---
Arrival/HPI - General Chief Complaint: Lower Extremity Problem/Injury Historian: Patient, Family - History of Present Illness Narrative History of Present Illness (Text): 09/22/18 12:15 83 y/o F w/ h/o diabetes presenting [facility] for claudication of the 4th and 5th digits of the left foot. Per the patient's daughter, the patient had been complaining of left toe pain & had been finding difficulty ambulating and placing weight on the outside of her foot. The patient's home health aide noted duskiness and discoloration of the 4th-5th digits of the left tow and brought it to the attention of the patient's daughter this morning. She denies any fevers, chills, headaches, difficulty breathing, emesis, abdominal pain, parasthesias or back pain at this time. PCP: Irene Bishop Time/Duration: Prior to Arrival Symptom Onset: Sudden Symptom Course: Worsening Quality: Aching Severity Level: Moderate Activities at Onset: Rest Context: Home Past Medical History - Provider Review Nursing Documentation Reviewed: Yes - Travel History Have you recently traveled outside [place] w/in the past 3 mons?: No - Infectious Disease Hx of Infectious Diseases: None - Tetanus Immunization Tetanus Immunization: Unknown - Reproductive Menopause: Yes - Cardiac Hx Cardiac Disorders: Yes (Chronic Afib) Hx Hypertension: Yes - Pulmonary Hx Respiratory Disorders: No - Neurological Hx Neurological Disorder: No - HEENT Hx HEENT Disorder: No - Renal Hx Renal Disorder: No - Endocrine/Metabolic Hx Diabetes Mellitus Type 2: Yes - Hematological/Oncological Hx Blood Disorders: No - Integumentary Hx Dermatological Disorder: No - Musculoskeletal/Rheumatological Hx Falls: Yes (past) - Gastrointestinal Hx Gastrointestinal Disorders: Yes (r abd abcess) - Genitourinary/Gynecological Hx Reproductive Disorders: Yes (hx of hyst) - Psychiatric Hx Psychophysiologic Disorder: No Hx Substance Use: No - Surgical History Hx Orthopedic Surgery: Yes - Anesthesia Hx Anesthesia Reactions: No Hx Malignant Hyperthermia: No Family/Social History - Physician Review Nursing Documentation Reviewed: Yes Family/Social History: Unknown Family HX Smoking Status: Never Smoked Hx Alcohol Use: No Hx Substance Use: No Allergies/Home Meds Allergies/Adverse Reactions: Allergies oxycodone [From Percocet] Allergy (Verified 09/22/18 11:41) DIZZINESS Penicillins Allergy (Verified 09/22/18 11:41) DIZZINESS Home Medications: Home Meds Medication Instructions Recorded Confirmed RX: Calcium Carbonate/Vitamin D3 600 mg PO DAILY 08/19/18 09/22/18 [Calcium 600+D Softgel] RX: Glipizide [Glipizide ER] 2.5 mg PO DAILY 08/19/18 09/22/18 RX: Home Med 5 mg PO DAILY 08/19/18 09/22/18 RX: Levothyroxine [Synthroid] 100 mcg PO DAILY 08/19/18 09/22/18 RX: Sodium Bicarbonate Tab 650 mg PO TID 08/19/18 09/22/18 RX: amLODIPine [Norvasc] 5 mg PO DAILY 08/29/18 09/22/18 Review of Systems - Physician Review All systems were reviewed & negative as marked: Yes - Review of Systems Constitutional: Normal. absent: Fevers, Night Sweats Gastrointestinal: Normal. absent: Abdominal Pain Musculoskeletal: Arthralgias, Joint Swelling, Myalgias. absent: Normal, Back Pain Neurological: Normal. absent: Headache Physical Exam Vital Signs Reviewed: Yes Vital Signs Temp Pulse Resp BP Pulse Ox 09/22/18 11:39 98.5 F 108 H 18 120/73 96 09/22/18 11:36 98.5 F 108 H 18 120/73 96 Temperature: Afebrile Blood Pressure: Normal Pulse: Tachycardic Respiratory Rate: Normal Appearance: Positive for: Well-Appearing, Non-Toxic, Comfortable Mental Status: Positive for: Alert and Oriented X 3 Finger Stick Blood Glucose: 273 - Systems Exam Head: Present: Atraumatic, Normocephalic Pupils: Present: PERRL Extroacular Muscles: Present: EOMI Conjunctiva: Present: Normal Mouth: Present: Moist Mucous Membranes Respiratory/Chest: Present: Clear to Auscultation, Good Air Exchange Cardiovascular: Present: Regular Rate and Rhythm, Tachycardic Abdomen: Present: Normal Bowel Sounds. No: Tenderness, Distention Upper Extremity: Present: Normal Inspection Lower Extremity: Present: Tenderness (pain to passive movement of 4th-5th toes), Erythema (noted to 4th & 5th digit of left foot), Other (Unable to detect palpable dorsalis pedal, posterior tibial or popliteal pulse of the LLE, duskiness noted to 4th-5th left toes) Neurological: Present: GCS=15 Skin: Present: Warm, Dry. No: Rashes Psychiatric: Present: Alert, Oriented x 3 Medical Decision Making ED Course and Treatment: 09/22/18 12:25 Impression 83 y/o F w/ h/o diabetes presenting w/ pain and duskiness of 4th-5th digits of left foot Differential Diagnoses Include But Are Not Limited To: --Arterial Occlusion/Ischemic foot --Osteomyelitis Plan --Labs --VBG --Blood Culture --EKG --CXR --Left foot XR --Arterial Doppler --Podiatry Consult --Vascular Surgery Consult --Zosyn --Vancomycin --Reassess & disposition Progress Note 09/22/18 12:30 Second call placed to Podiatry resident. 09/22/18 12:54 Spoke to podiatry resident who states resident rehabilitation tech is currently in a case within the [facility]. She will come to the ER as soon as she has completed her OR case. Labs reviewed with leukocytosis noted with shift. Pending XR foot & arterial dopplers. 09/22/18 13:56 Arterial Dopplers reviewed with absent pulses noted to popliteal, dorsalis pedis and posterior tibial portions of foot as well as monophasic pattern noted on exam. Call placed to Dr. Martins(PCP) and Dr. Roosevelt Sharif(interventional radiologist). 09/22/18 14:[address] Martins who agrees with plan for transfer to [facility]. Call placed to [facility] for vascular services/ER. Findings explained to family who demonstrate understanding. 09/22/18 14:[address] Grimaldo(vascular surgery fellow) who after discussing with his attending states they are unable to accept the patient due to an inability to see patient within an appropriate time span and had a 6 hour OR case that would take a majority of the day. Spoke directly to vascular surgery attending who states patient is unable to be transferred due to an inability to see patient. Call placed to [facility]. Heparin ordered. 09/22/18 15:16 Podiatry resident evaluated at the bedside and states no acute podiatry intervention is warranted at this time. Attempt to call [facility] as well as [facility]. 09/22/18 16:11 Spoke to resident at [facility] who states she is unable to accept the patient unless call placed through transfer center. Spoke to transfer center personnel who will page the fellow and provide a call back to the medical center. No response from [facility]. 09/22/18 16:41 Patient complaining of pain. Discussion with daughter regarding patient's allergies who states patient becomes delirious on oxycodone, but denies any hives, edema or dyspnea from taking medications. She reports patient had morphine and has not had any allergy to it. Morphine ordered. 09/22/18 17:01 Call placed to transfer center at [facility] with turning machine operator stating page was placed to vascular attending who is currently in the OR. He has been notified and will call back once finished. Call placed to [facility], [facility] and [facility]]. 09/22/18 17:[address] Cerrato(vascular surgeon at [facility]) who refuses to take the patient due to liability issues and availability of other hospitals/vascular surgeons within the area. Spoke to Dr. Timi Newell(DEHYDROGENATION OPERATOR) who states he will reach out to [place] [facility] and suggests calling Dr. Young Newell(interventional radiology) as well as Dr. Kvng Cerrato(vascular surgery) at [facility]. Spoke to Dr. Young Newell who suggests patient should have CT angio of LLE and suggests calling Dr. Macedo(interventional radiology rehabilitation tech) to see if any acute intervention can be done. Call placed to Dr. Kvng Cerrato and Dr. Macedo. 09/22/18 18:[address] Kvng Cerrato(vascular surgeon at [facility]) who gladly accepts patient for transfer. Calling [facility] Emergency Room for connection with the ER attending. Spoke to Dr. Young Newell who requests for patient to have CT angiogram with runoff. CTA ordered. 09/22/18 18:59 Several calls to [facility] ER with no response. Transfer via [facility] ambulance services called and will transport patient at 19:15 hours. CTA canceled. 09/22/18 19:[address] Timi Newell who is aware of patient's transport to [facility]. Patient being loaded onto stretcher. - Lab Interpretations Lab Results: Lab Results 09/22/18 11:51: POC Glucose (mg/dL) 273 H 09/22/18 12:15 09/22/18 12:15 Lab Results 09/22/18 12:15: Sodium 133, Chloride 100, Potassium 3.6, Carbon Dioxide 23, Anion Gap 14, BUN 19, Creatinine 1.5 H, Est GFR ( Amer) 40, Est GFR (Non- Af Amer) 33, Random Glucose 259 H, Calcium 8.5, Total Bilirubin 0.7, AST 26, ALT 25, Alkaline Phosphatase 146 H D, Total Protein 6.6, Albumin 2.9 L, Globulin 3.7, Albumin/Globulin Ratio 0.8 L 09/22/18 12:15: pO2 90 H, VBG pH 7.40, VBG pCO2 37.0 L, VBG HCO3 22.9, VBG Total CO2 24.0, VBG O2 Sat (Calc) 99.4 H, VBG Base Excess -1.5 L, VBG Potassium 3.4 L , Sodium 133.0, Chloride 100.0, Glucose 271 H, Lactate 1.2, FiO2 21.0, Venous Blood Potassium 3.4 L 09/22/18 12:15: PT 15.4 H, INR 1.33, APTT 44.8 H 09/22/18 12:15: WBC 12.2 H D, RBC 2.79 L, Hgb 8.1 L, Hct 25.1 L, MCV 90.0, MCH 29.0, MCHC 32.3, RDW 14.7 H, Plt Count 191, MPV 10.1, Gran % 84.1 H, Lymph % (Auto) 7.6 L, [place] % (Auto) 8.0 H, Eos % (Auto) 0.2 L, Baso % (Auto) 0.1, Gran # 10.24 H, Lymph # (Auto) 0.9 L, [place] # (Auto) 1.0 H, Eos # (Auto) 0.0, Baso # (Auto) 0.01, ESR Pending 09/22/18 11:51: POC Glucose (mg/dL) 273 H I have reviewed the lab results: Yes - RAD Interpretation Radiology Orders: 09/22/18 11:48 CHEST PORTABLE [RAD] Stat 09/22/18 11:50 FOOT LEFT 4TH DIGIT (TOE) [RAD] Stat DUPLEX LOWER EXT ART LT LMTD [US] Stat - Medication Orders Current Medication Orders: Sodium Chloride (Sodium Chloride 0.9%) 1,000 mls @ 999 mls/hr IV .Q1H1M STA Stop: 09/22/18 12:54 - Scribe Statement The provider has reviewed the documentation as recorded by the Scribe Courtney Holbrook All medical record entries made by the Scribe were at my direction and personally dictated by me. I have reviewed the chart and agree that the record accurately reflects my personal performance of the history, physical exam, [facility] decision making, and the department course for this patient. I have also personally directed, reviewed, and agree with the discharge instructions and disposition. Disposition/Present on Arrival - Present on Arrival Any Indicators Present on Arrival: Yes History of DVT/PE: Yes History of Uncontrolled Diabetes: No Urinary Catheter: No History of Decub. Ulcer: No History Surgical Site Infection Following: None - Disposition Have Diagnosis and Disposition been Completed?: Yes Diagnosis: Ischemic foot, Arterial occlusion, lower extremity, Claudication, Fracture of 5th metatarsal Disposition: Transfer [facility] Disposition Time: 19:15 Patient Plan: Transfer To ([facility]) Condition: SERIOUS Referrals: Irene Bishop DO [Primary Care Provider] - Follow up with primary Forms: [employer] ([place])
[2018-09-22 12:31] LABS: VENOUS BLOOD GAS BASE EXCESS -1.5 mmol/L (0.0-2.0); VENOUS BLOOD GAS PO2 90 mm/Hg (30-55)
[2018-09-22 12:39] LABS: INR 1.33; PARTIAL THROMBOPLASTIN TIME 44.8 Seconds (25.1-36.5); PROTHROMBIN TIME 15.4 SECONDS (9.4-12.5)
[2018-09-22 12:40] LABS: BASO # 0.01 K/mm3 (0.0-2.0); BASO % 0.1 % (0.0-3.0); EOS % 0.2 % (1.5-5.0); GRAN # 10.24 (1.4-6.5); GRAN % 84.1 % (50.0-68.0); HEMOGLOBIN 8.1 g/dL (12.0-16.0); LYMPH # 0.9 (1.2-3.4); LYMPH % 7.6 % (22.0-35.0); MEAN CORPUSCULAR HGB CONC 32.3 g/dl (31.0-37.0); MEAN PLATELET VOLUME 10.1 fl (7.0-11.0); RBC 2.79 10^6/uL (3.5-6.1); RED CELL DISTRIBUTION WIDTH 14.7 % (11.5-14.5); WHITE BLOOD COUNT 12.2 10^3/uL (4.5-11.0)
[2018-09-22 12:48] LABS: ALB/GLOB RATIO 0.8 (1.1-1.8); ALBUMIN 2.9 g/dL (3.0-4.8); CALCIUM 8.5 mg/dL (8.4-10.5)
--- NOTE | 2018-09-22 13:29 | RAD ---
Date of service: 09/22/2018 HISTORY: sob COMPARISON: 09/18/2018 FINDINGS: LUNGS: No active pulmonary disease. PLEURA: No significant pleural effusion identified, no pneumothorax apparent. CARDIOVASCULAR: Aortic calcification Normal cardiac size. No pulmonary vascular congestion. OSSEOUS STRUCTURES: No significant abnormalities. VISUALIZED UPPER ABDOMEN: Normal. OTHER FINDINGS: None. IMPRESSION: No active disease.
[2018-09-22] MEDS ORDERED: Vancomycin 1gm in NS 250ml 1 GM/250 ML BAG IVPB STA (13:33)
--- NOTE | 2018-09-22 14:12 | RAD ---
Date of service: 09/22/2018 PROCEDURE: Left foot and 4th digit HISTORY: pain within 4th and 5th toes COMPARISON: TECHNIQUE: Three views of the left foot and toes were obtained FINDINGS: There is a questionable nondisplaced fracture of the 5th proximal phalanx seen only on the lateral view. The 4th toe is unremarkable. IMPRESSION: As above
[2018-09-22 14:28] VITALS: BMI 25.6
[2018-09-22] MEDS ORDERED: Heparin 25,000units in 1/2NS /250 ML BAG IV PRN (15:28)
--- NOTE | 2018-09-22 16:06 | US ---
PROCEDURE: Lower extremity GOOD exam HISTORY: Peripheral vascular disease with left ischemic pain PHYSICIAN(S): Roosevelt Sharif MD. FINDINGS: The right resting GOOD is normal, 0.96. The left resting GOOD is severely abnormal and not obtainable The brachial systolic pressures are symmetric. The left calf, ankle, and metatarsal waveforms are essentially flat. This raises the possibility of a left popliteal embolus. The proximal right pressures are noncompressible. The right lower extremity waveforms are essentially normal to the ankle IMPRESSION: 1. Left popliteal embolus. The left calf ankle and metatarsal waveforms are essentially flat. 2. Further evaluation with a CTA runoff, MRA runoff, or conventional arteriogram can be obtained if clinically indicated
[2018-09-22] MEDS ORDERED: Morphine 4 mg/ml ISec IVP STA (16:38)
[2018-09-22 19:17] VITALS: BP 135/72; PULSE 101; TEMP 98.2; O2SAT 98
== END 2018-09-22 19:35 | disposition short-term general hospital (02) ==
LOC: ED 11:33
DX: S92.352A Displaced fracture of fifth metatarsal bone, left foot, initial encounter for closed fracture (principal); X58.XXXA Exposure to other specified factors, initial encounter; I74.3 Embolism and thrombosis of arteries of the lower extremities; I10 Essential (primary) hypertension; I48.2 Chronic atrial fibrillation; E11.9 Type 2 diabetes mellitus without complications
CPT/HCPCS: 71045; 73660; 80053; 82803; 82948; 85025; 85610; 85651; 85730; 87040; 93923; 96361; 96365; 96366; 96375; 99285; J1644; J2270; J7030; Q9967